=== PATIENT | male | born 1960 | race Caucasian/White ===

== ENCOUNTER 2016-12-19 15:16 | Inpatient (IN) | payer MEDICARE, BC ==
[~2016-12-19] VITALS: Ht 172.7 cm; Wt 92.4 kg
[2016-12-19] MEDS ORDERED: SODIUM CHLOR 0.9% 1000 ML INJ 1,000 ML IV SCH (15:18)
[2016-12-19 15:19] VITALS: BP 131/83; PULSE 110; RESP 20; TEMP 97.2; O2SAT 90
--- NOTE | 2016-12-19 15:26 | PD ---
HPI Chief Complaint: Fall Time Seen by Provider: 15:18 Travel History International Travel<30 days: No Contact w/Intl Traveler<30days: No Traveled to known affect area: No History of Present Illness HPI 56-year-old male with history of psychiatric issues, presents to the ER today brought in by EMS after he fell from a 13 foot ladder, fell onto his left chest wall, he states it hit a stump, and is complaining of left chest wall pain. He denies any other injuries and was actually ambulatory on scene and walked himself to his own car. He denies any loss of consciousness, denies head injury , and denies any other issues. He states that the chest pain is a currently 10 out of 10. He is having back pains as well. Modifying Factors: None Associated Signs & Symptoms: Fall from 13 foot ladder, left chest wall injury Risk Factors: None PFSH Past Medical History Bipolar Disorder: Yes Anxiety: Yes Depression: Yes Social History Alcohol Use: Yes Tobacco Use: No Substance Use: No Allergies-Medications (Allergen,Severity, Reaction): Coded Allergies: CRESTOR (Verified Allergy, Intermediate, 12/19/16) Invega Sustenna (Verified Allergy, Intermediate, 12/19/16) [place] (Verified Allergy, Intermediate, 12/19/16) Omeprazole (Verified Allergy, Intermediate, 12/19/16) Risperdal (Verified Allergy, Intermediate, 12/19/16) Tramadol (Verified Allergy, Mild, 12/19/16) Reported Meds & Prescriptions Reported Meds & Active Scripts Active Reported Flonase Nasal [place] (Fluticasone Nasal [place]) 50 Mcg/Act [place] 50 Mcg EACH NARE BID Fenofibrate 40 Mg Tab 40 Mg PO DAILY Hydroxyzine Pamoate 100 Mg Cap 100 Mg PO QID PRN Metformin (Metformin HCl) 500 Mg Tab 500 Mg PO BIDPC With meals Tylenol-Codeine #3 (Acetaminophen-Codeine) 300-30 mg Tab 1 Tab PO Q4H PRN Flexeril (Cyclobenzaprine HCl) 10 Mg Tab 10 Mg PO TID Lorazepam 1 Mg Tab 1 Mg PO Q6H PRN Nexium (Esomeprazole DR) 40 Mg Capdr 40 Mg PO DAILY Lamictal (Lamotrigine) 150 Mg Tab 150 Mg PO BID Fluoxetine (Fluoxetine HCl) 60 Mg Tab 60 Mg PO DAILY Quetiapine (Quetiapine Fumarate) 400 Mg Tab 400 Mg PO BID Gabapentin 300 Mg Cap 300 Mg PO BID Review of Systems Except as stated in HPI: all other systems reviewed are Neg Physical Exam Narrative GENERAL: Well-developed middle age white male patient currently in moderate distress. Awake and oriented 3. In c-collar. SKIN: Focused skin assessment warm/dry. HEAD: Atraumatic. Normocephalic. EYES: Pupils equal and round. No scleral icterus. No injection or drainage. ENT: No nasal bleeding or discharge. Mucous membranes pink and moist. NECK: Trachea midline. No JVD. C-collar in place. CARDIOVASCULAR: Regular rate and rhythm. No murmur appreciated. RESPIRATORY: Mild accessory muscle use. Clear to auscultation. Breath sounds equal bilaterally. Very tender to palpation of the left anterior and lateral chest wall. GASTROINTESTINAL: Abdomen tender to palpation of the left upper quadrant with guarding but no rebound, nondistended. Hepatic and splenic margins not palpable. MUSCULOSKELETAL: No obvious deformities. No clubbing. No cyanosis. No edema. NEUROLOGICAL: Awake and alert. No obvious cranial nerve deficits. Motor grossly within normal limits. Normal speech. PSYCHIATRIC: Appropriate mood and affect; insight and judgment normal. Data Data Last Documented VS Vital Signs Date Time Temp Pulse Resp B/P Pulse Ox O2 Delivery O2 Flow Rate FiO2 12/19/16 15:23 110 22 93 Nasal Cannula 2 12/19/16 15:19 97.2 131/83 Orders Basic Metabolic Panel (Bmp) (12/19/16 15:18) Complete Blood Count With Diff (12/19/16 15:18) Prothrombin Time / Inr (Pt) (12/19/16 15:18) Act Partial Throm Time (Ptt) (12/19/16 15:18) Type And Screen (12/19/16 15:18) Urinalysis - C+S If Indicated (12/19/16 15:18) Chest, Single Ap (12/19/16 15:18) Pelvis, Ap Only (Routine) (12/19/16 15:18) Ct Cerv Spine W/O Contrast (12/19/16 15:18) Ct Abd/Pel W Iv Contrast(Rout) (12/19/16 15:18) Ct Thorax/ Chest W Iv Contrast (12/19/16 15:18) Electrocardiogram (12/19/16 15:18) Iv Access Insert/Monitor (12/19/16 15:18) Ecg Monitoring (12/19/16 15:18) Oximetry (12/19/16 15:18) Oxygen Administration (12/19/16 15:18) Morphine Inj (Morphine Inj) (12/19/16 15:30) Ondansetron Inj (Zofran Inj) (12/19/16 15:30) Sodium Chlor 0.9% 1000 Ml Inj (Ns 1000 M (12/19/16 15:18) Sodium Chloride 0.9% Flush (Ns Flush) (12/19/16 15:30) Ct Brain W/O Iv Contrast(Rout) (12/19/16 15:29) Iohexol 350 Inj (Omnipaque 350 Inj) (12/19/16 16:56) Admit Order (Ed Use Only) (12/19/16 17:32) Labs Laboratory Tests Test 12/19/16 15:45 White Blood Count 9.0 TH/MM3 Red Blood Count 4.48 MIL/MM3 Hemoglobin 11.8 GM/DL Hematocrit 35.1 % Mean Corpuscular Volume 78.2 FL Mean Corpuscular Hemoglobin 26.4 PG Mean Corpuscular Hemoglobin 33.7 % Concent Red Cell Distribution Width 14.1 % Platelet Count 261 TH/MM3 Mean Platelet Volume 6.5 FL Neutrophils (%) (Auto) 71.1 % Lymphocytes (%) (Auto) 19.9 % Monocytes (%) (Auto) 7.0 % Eosinophils (%) (Auto) 1.8 % Basophils (%) (Auto) 0.2 % Neutrophils # (Auto) 6.4 TH/MM3 Lymphocytes # (Auto) 1.8 TH/MM3 Monocytes # (Auto) 0.6 TH/MM3 Eosinophils # (Auto) 0.2 TH/MM3 Basophils # (Auto) 0.0 TH/MM3 CBC Comment DIFF FINAL Differential Comment Prothrombin Time 11.0 SEC Prothromb Time International 1.0 RATIO Ratio Activated Partial 25.1 SEC Thromboplast Time Sodium Level 138 MEQ/L Potassium Level 3.4 MEQ/L Chloride Level 101 MEQ/L Carbon Dioxide Level 22.7 MEQ/L Anion Gap 14 MEQ/L Blood Urea Nitrogen 15 MG/DL Creatinine 1.00 MG/DL Estimat Glomerular Filtration 78 ML/MIN Rate Random Glucose 121 MG/DL Calcium Level 8.9 MG/DL Blood Type O POSITIVE Antibody Screen NEGATIVE Blood Bank Comment MDM Medical Decision Making Medical Screen Exam Complete: Yes Emergency Medical Condition: Yes Medical Record Reviewed: Yes Interpretation(s) Laboratory Tests Test 12/19/16 15:45 Red Blood Count 4.48 MIL/MM3 (4.50-5.90) Hemoglobin 11.8 GM/DL (13.0-17.0) Hematocrit 35.1 % (39.0-51.0) Mean Corpuscular Volume 78.2 FL (80.0-100.0) Mean Corpuscular Hemoglobin 26.4 PG (27.0-34.0) Mean Platelet Volume 6.5 FL (7.0-11.0) Neutrophils (%) (Auto) 71.1 % (16.0-70.0) Potassium Level 3.4 MEQ/L (3.5-5.1) Estimat Glomerular Filtration 78 ML/MIN (>89) Rate Random Glucose 121 MG/DL (74-106) Last [address] 12/19/[id number] Signed Impressions: Service Date/Time: Monday, December 19, 2016 16:42 - CONCLUSION: Negative noncontrast CT brain. Gautam Mary MD Pelvis X-Ray 12/19/161517 Signed Impressions: Service Date/Time: Monday, December 19, 2016 15:21 - CONCLUSION: Intact pelvis. Giovanni Pradhan MD Chest X-Ray 12/19/161517 Signed Impressions: Service Date/Time: Monday, December 19, 2016 15:19 - CONCLUSION: Trace left base atelectasis. Giovanni Pradhan MD Chest CT 12/19/161517 Signed Impressions: Service Date/Time: Monday, December 19, 2016 16:51 - CONCLUSION: 1. Multiple left rib fractures as above. Associated contusion of the left mid to lower lung. No pneumothorax or hemothorax. 2. Mild bilateral dependent atelectasis. Giovanni Pradhan MD Cervical Spine CT 12/19/161517 Signed Impressions: Service Date/Time: Monday, December 19, 2016 16:42 - CONCLUSION: No fracture or subluxation of the cervical spine. Degenerative changes at C5/C6 and C6/C7 as above. Giovanni Pradhan MD Abdomen/Pelvis CT 12/19/161517 Signed Impressions: Service Date/Time: Monday, December 19, 2016 16:51 - CONCLUSION: No evidence of acute trauma of the abdomen or pelvis. Enlarged and mild fatty infiltrated liver. Giovanni Pradhan MD Differential Diagnosis Fall from ladder, left chest wall and abdominal painrib fractures versus rib contusions versus splenic injuries Narrative Course X-rays and CAT scans ordered for the patient. It shows multiple rib fractures in the left chest wall with a pulmonary contusion underlying. Patient is tachypneic and cardiac with low saturations. At this point, he is placed on oxygen and pain medications in the ER. My plan would be to admit him for further evaluation and treatment. Case was discussed with Dr. Jordan who plans to admit him for further treatment. Diagnosis Primary Impression: Fall from ladder Additional Impressions: Multiple rib fractures Pulmonary contusion Admitting Information Admitting Physician Requests: Admit Deedee Rabago MD Dec 19, 2016 15:25
[2016-12-19] MEDS ORDERED: SODIUM CHLORIDE 0.9% FLUSH 10 ML FLUSH IVF PRN (15:30)
[2016-12-19] MEDS ORDERED: MORPHINE SULFATE 4 MG/ML INJ IV ONE (15:30)
[2016-12-19] MEDS ORDERED: ONDANSETRON HCL 4 MG/2 ML VIAL IVP ONE (15:30)
--- NOTE | 2016-12-19 15:55 | RADRPT ---
EXAM DATE/TIME: 12/19/2016 15:19 [facility] COMPARISON: No previous studies available for comparison. INDICATIONS : Fall, Chest pain. MEDICAL HISTORY : None. SURGICAL HISTORY : None. ENCOUNTER: Initial ACUITY: 1 day PAIN SCORE: 10/10 LOCATION: Bilateral chest FINDINGS: Mild atelectasis left lung base. No pleural effusion seen. No pneumothorax. Heart size within normal limits. CONCLUSION: Trace left base atelectasis. Giovanni Pradhan MD on December 19, 2016 at 15:53 Board Certified Radiologist. This report was verified electronically.
--- NOTE | 2016-12-19 15:56 | RADRPT ---
EXAM DATE/TIME: 12/19/2016 15:21 [facility] COMPARISON: No previous studies available for comparison. INDICATIONS : Fall. MEDICAL HISTORY : None. SURGICAL HISTORY : None. ENCOUNTER: Initial ACUITY: 1 day PAIN SCORE: 10/10 LOCATION: Bilateral pelvis FINDINGS: A single frontal view of the pelvis demonstrates no evidence of fracture. The bony pelvic ring is in tact. Bony mineralization is normal. The soft tissues are intact. CONCLUSION: Intact pelvis. Giovanni Pradhan MD on December 19, 2016 at 15:53 Board Certified Radiologist. This report was verified electronically.
[2016-12-19 16:03] LABS: AUTOMATED NEUTROPHIL # 6.4 TH/MM3 (1.8-7.7); BASOPHIL % 0.2 % (0.0-2.0); EOSINOPHIL # 0.2 TH/MM3 (0-0.4); EOSINOPHIL % 1.8 % (0.0-4.0); HEMATOCRIT 35.1 % (39.0-51.0); HEMO FLAGS DIFF FINAL; LYMPH % 19.9 % (9.0-44.0); LYMPHOCYTE # 1.8 TH/MM3 (1.0-4.8); MEAN CELL VOLUME 78.2 FL (80.0-100.0); MEAN CORPUSCULAR HEMOGLOBIN 26.4 PG (27.0-34.0); MEAN CORPUSCULAR HGB CONC 33.7 % (32.0-36.0); NEUT % 71.1 % (16.0-70.0); PLATELET COUNT 261 TH/MM3 (150-450); RED BLOOD COUNT 4.48 MIL/MM3 (4.50-5.90); RED CELL DISTRIBUTION WIDTH 14.1 % (11.6-17.2)
[2016-12-19 16:10] LABS: APTT (PATIENT) 25.1 SEC (24.3-30.1)
[2016-12-19 16:14] LABS: BICARBONATE 22.7 MEQ/L (21.0-32.0); POTASSIUM 3.4 MEQ/L (3.5-5.1)
[2016-12-19] MEDS ORDERED: QUET1TAB11 PO (16:14)
[2016-12-19] MEDS ORDERED: GABA300C5 PO (16:14)
[2016-12-19] MEDS ORDERED: NEXI40CA PO (16:18)
[2016-12-19] MEDS ORDERED: FENO1TAB46 PO (16:18)
[2016-12-19] MEDS ORDERED: FLUT1SPR5 EACH NARE (16:18)
[2016-12-19] MEDS ORDERED: HYDR100C PO (16:18)
[2016-12-19] MEDS ORDERED: FLUO60TA PO (16:18)
[2016-12-19] MEDS ORDERED: METF500T PO (16:18)
[2016-12-19] MEDS ORDERED: LAMO150 PO (16:18)
[2016-12-19] MEDS ORDERED: TYLETAB34 PO (16:18)
[2016-12-19] MEDS ORDERED: CYCL1TAB29 PO (16:18)
[2016-12-19] MEDS ORDERED: LORA1TAB12 PO (16:18)
[2016-12-19] MEDS ORDERED: IOHEXOL 350 MG/ML 10 ML VIAL (for RAD DIAG) IV ONE (16:56)
--- NOTE | 2016-12-19 16:56 | RADRPT ---
EXAM DATE/TIME: 12/19/2016 16:42 [facility] COMPARISON: No previous studies available for comparison. INDICATIONS : Trauma; fall 15 feet off ladder. RADIATION DOSE: 61.14 CTDIvol (mGy) MEDICAL HISTORY : None SURGICAL HISTORY : None. ENCOUNTER: Initial ACUITY: 1 day PAIN SCALE: 8/10 LOCATION: cranial TECHNIQUE: Multiple contiguous axial images were obtained of the head. Using automated exposure control and adj ustment of the mA and/or kV according to patient size, radiation dose was kept as low as reasonably a chievable to obtain optimal diagnostic quality images. FINDINGS: CEREBRUM: The ventricles are normal for age. No evidence of midline shift, mass lesion, hemorrhage or acute in farction. No extra-axial fluid collections are seen. POSTERIOR FOSSA: The cerebellum and brainstem are intact. The 4th ventricle is midline. The cerebellopontine angle i s unremarkable. EXTRACRANIAL: The visualized portion of the orbits is intact. SKULL: The calvaria is intact. No evidence of skull fracture. CONCLUSION: Negative noncontrast CT brain. Gautam Mary MD on December 19, 2016 at 16:52 Board Certified Radiologist. This report was verified electronically.
--- NOTE | 2016-12-19 16:59 | RADRPT ---
EXAM DATE/TIME: 12/19/2016 16:42 [facility] COMPARISON: No previous studies available for comparison. INDICATIONS : Trauma; fall 15 feet off ladder. RADIATION DOSE: 42.53 CTDIvol (mGy) MEDICAL HISTORY : None SURGICAL HISTORY : None. ENCOUNTER: Initial ACUITY: 1 day PAIN SCALE: 7/10 LOCATION: cranial TECHNIQUE: Volumetric scanning of the cervical spine was performed. Multiplanar reconstructions in the sagittal, coronal and oblique axial planes were performed. Using automated exposure control and adjustment o f the mA and/or kV according to patient size, radiation dose was kept as low as reasonably achievable to obtain optimal diagnostic quality images. FINDINGS: VERTEBRAE: Normal vertebral body height. ALIGNMENT: No evidence of subluxation. C2-C3: The bony spinal canal is normal in size. No evidence of disc bulge or herniation. The neural forami na are bilaterally patent. C3-C4: The bony spinal canal is normal in size. No evidence of disc bulge or herniation. The neural forami na are bilaterally patent. C4-C5: The bony spinal canal is normal in size. No evidence of disc bulge or herniation. The neural forami na are bilaterally patent. C5-C6: Mild to moderate disc space narrowing with a small, broad posterior disc osteophyte complex and mild bilateral uncovertebral and facet osteoarthritis. C6-C7: Mild to moderate disc space narrowing with a small, broad posterior disc osteophyte complex and mild/ moderate bilateral uncovertebral and facet osteoarthritis. There is mild bilateral foraminal stenosis . C7-T1: The bony spinal canal is normal in size. No evidence of disc bulge or herniation. The neural forami na are bilaterally patent. CONCLUSION: No fracture or subluxation of the cervical spine. Degenerative changes at C5/C6 and C6/C7 as above. Giovanni Pradhan MD on December 19, 2016 at 16:55 Board Certified Radiologist. This report was verified electronically.
--- NOTE | 2016-12-19 17:10 | RADRPT ---
EXAM DATE/TIME: 12/19/2016 16:51 [facility] COMPARISON: No previous studies available for comparison. INDICATIONS : Trauma; fall 15 feet off ladder. IV CONTRAST: 100 cc Omnipaque 350 (iohexol) IV ; Cumulative dose for multiple exams. RADIATION DOSE: 19.53 CTDIvol (mGy) ; Combined studies - Thorax/Abdomen/Pelvis MEDICAL HISTORY : None SURGICAL HISTORY : None. ENCOUNTER: Initial ACUITY: 1 day PAIN SCALE: 7/10 LOCATION: Bilateral chest TECHNIQUE: Volumetric scanning of the chest was performed. Using automated exposure control and adjustment of t he mA and/or kV according to patient size, radiation dose was kept as low as reasonably achievable to obtain optimal diagnostic quality images. FINDINGS: Mildly displaced fractures are seen laterally and posterolaterally of the left fifth through ninth ri bs. There is associated pulmonary contusion in the left mid to lower lung, primarily lingula. There i s dependent atelectasis in both lungs. No hemothorax demonstrated. There is no pneumothorax. Right ribs are intact. Sternum and thoracic spine intact. Heart and mediastinum within normal li mits. CONCLUSION: 1. Multiple left rib fractures as above. Associated contusion of the left mid to lower lung. No pneum othorax or hemothorax. 2. Mild bilateral dependent atelectasis. Giovanni Pradhan MD on December 19, 2016 at 17:05 Board Certified Radiologist. This report was verified electronically.
--- NOTE | 2016-12-19 17:14 | RADRPT ---
EXAM DATE/TIME: 12/19/2016 16:51 [facility] COMPARISON: CT THORAX W CONTRAST, December 19, 2016, 16:51. INDICATIONS : Trauma; fall 15 feet off ladder. IV CONTRAST: 100 cc Omnipaque 350 (iohexol) IV ; Cumulative dose for multiple exams. ORAL CONTRAST: No oral contrast ingested. RADIATION DOSE: 19.53 CTDIvol (mGy) ; Combined studies - Thorax/Abdomen/Pelvis MEDICAL HISTORY : Non-responsive. SURGICAL HISTORY : Non-responsive. ENCOUNTER: Initial ACUITY: 1 day PAIN SCALE: 8/10 LOCATION: Bilateral abdomen. TECHNIQUE: Volumetric scanning of the abdomen and pelvis was performed. Using automated exposure control and ad justment of the mA and/or kV according to patient size, radiation dose was kept as low as reasonably achievable to obtain optimal diagnostic quality images. FINDINGS: LIVER: 23 cm craniocaudal and mild fatty infiltrated. The liver is intact. Gallbladder previously removed. SPLEEN: Normal size without lesion. PANCREAS: Within normal limits. KIDNEYS: Normal in size and shape. There is no mass, stone or hydronephrosis. ADRENAL GLANDS: Within normal limits. VASCULAR: There is no aortic aneurysm. BOWEL/MESENTERY: The stomach, small bowel, and colon demonstrate no acute abnormality. There is no free intraperitone al air or fluid. Normal appendix. ABDOMINAL WALL: Within normal limits. RETROPERITONEUM: There is no lymphadenopathy. BLADDER: No wall thickening or mass. REPRODUCTIVE: Within normal limits. INGUINAL: There is no lymphadenopathy or hernia. MUSCULOSKELETAL: No fracture of the visualized osseous structures. Sacralized L5 with mild degenerative changes. CONCLUSION: No evidence of acute trauma of the abdomen or pelvis. Enlarged and mild fatty infiltrated liver. Giovanni Pradhan MD on December 19, 2016 at 17:09 Board Certified Radiologist. This report was verified electronically.
[2016-12-19 18:13] VITALS: BP 134/85
[2016-12-19] MEDS ORDERED: MORPHINE SULFATE 4 MG/ML INJ IV PUSH ONE (18:30)
[2016-12-19] MEDS ORDERED: NALOXONE HCL 0.4 MG/ML AMP IV PRN (19:00)
[2016-12-19] MEDS ORDERED: PANTOPRAZOLE SODIUM 40 MG VIAL IVP SCH (19:00)
[2016-12-19] MEDS ORDERED: MISCELLANEOUS NURSING INFORMATION XX SCH (19:00)
[2016-12-19] MEDS ORDERED: ACETAMINOPHEN/HYDROcodone 325 MG/5 MG TAB PO PRN (19:00)
[2016-12-19] MEDS ORDERED: CHLORHEXIDINE GLUCONATE 2 % 1 PACK (2 CLOTHS) TOP PRN (19:00)
[2016-12-19] MEDS ORDERED: KETOROLAC TROMETHAMINE 30 MG/ML (IVP) VIAL IVP PRN (19:00)
[2016-12-19] MEDS ORDERED: ONDANSETRON HCL 4 MG/2 ML VIAL IV PRN (19:00)
[2016-12-19] MEDS ORDERED: ENALAPRILAT 1.25 MG/ML VIAL IV PRN (19:00)
[2016-12-19 19:21] VITALS: O2SAT 95
[2016-12-19 20:15] VITALS: BP 130/83; PULSE 98; RESP 19; TEMP 96.9; O2SAT 97
[2016-12-19] MEDS: SODIUM CHLOR 0.9% 1000 ML INJ 1,000 ML IV SCH ×2 (20:15→20:26)
[2016-12-19] MEDS: DOCUSATE SODIUM 100 MG/10 ML UDC PO SCH (20:15)
[2016-12-19] MEDS: DOCUSATE SODIUM 100 MG CAP PO SCH (20:15)
[2016-12-19] MEDS: BACITRACIN TOP OINT 15 GM TUBE TOP SCH (20:16)
[2016-12-19] MEDS: MORPHINE SULFATE 30 MG/30 ML PCA IV SCH (20:22)
[2016-12-19] MEDS: PCA - TOTAL MG MORPHINE DELIVERED PER SHIFT SCH (22:00)
[2016-12-20] VITALS (8 sets, daily range): BP systolic 111–142; BP diastolic 73–88; PULSE 81–94; RESP 18; TEMP 95.9–97.4; O2SAT 93–97
[2016-12-20] MEDS ORDERED: CHLORHEXIDINE GLUCONATE 2 % 1 PACK (2 CLOTHS) TOP SCH (04:00)
[2016-12-20 04:06] LABS: BLOOD, URINE NEG (NEG); COMMENT (UR) CULT NOT INDICATED; CULTURE IF INDICATED CULT NOT INDICATED; GLUCOSE,URINE NEG (NEG); KETONE, URINE NEG (NEG); NITRITE,URINE NEG (NEG); URINE COLOR YELLOW (YELLW/STRAW)
--- NOTE | 2016-12-20 05:22 | MH ---
cc: RAMOS ROCHE MD DATE OF ADMISSION: 12/19/2016 CHIEF COMPLAINT Trauma Non-Alert, status post fall. Rib fractures. HISTORY OF PRESENT ILLNESS The patient is 56-year-old male who presents to the emergency department after a fall from 13 feet on a ladder. The patient notes he was climbing a ladder, cutting down branches when he had a branch swing, hit the ladder, knock the ladder out from under him and the patient lost his balance and fell. He denies any loss of consciousness. He notes he fell on his left chest and left ribs and back. He came to the emergency department for further evaluation including multiple CT scans and CT chest showing multiple left 5 through 9 ribs with pulmonary contusion. Surgery was called for further evaluation. On my exam the patient is resting comfortably on 2 liters nasal cannula O2. He is saturating 92%, complains of pain with deep respirations. Otherwise GCS of 15. Neurologically he is following commands and moving all extremities. He is complaining of significant left rib pain. PAST MEDICAL HISTORY 1. Bipolar disorder. 2. Anxiety depression. 3. Diabetes. PAST SURGICAL HISTORY 1. Right ankle surgery. 2. Right arm surgery. 3. Gallbladder surgery SOCIAL HISTORY Denies smoking, EtOH or IVDA. MEDICATIONS See EMR. ALLERGIES CRESTOR. LITHIUM. OMEPRAZOLE, RISPERDAL. TRAMADOL. INVEGA. FAMILY HISTORY Denies hypertension or diabetes. SOCIAL HISTORY Occasional ETOH. Denies smoking or IVDA. REVIEW OF SYSTEMS A 10-point review of systems otherwise negative except for as above. GENERAL: The patient denies LOC. HEENT: Denies eye pain, ear pain. NECK: Denies swelling or pain. RESPIRATORY: Denies cough or wheeze. Complained of left chest pain. HEART: Denies palpitations or pain. ABDOMEN: Denies nausea, vomiting, abdominal pain. MUSCULOSKELETAL: Denies arthralgia, myalgia. PSYCH: History of bipolar. Denies change in mood. PHYSICAL EXAMINATION GENERAL: In no acute distress. VITAL SIGNS: Temperature 96.9, pulse 98, respiration 19, blood pressure 130/83, saturation 97%. HEENT: Pupils equal, round, reactive. NECK: Supple. Trachea midline. CLAVICLES: Nontender. HEART: S1-S2, regular rhythm. CHEST: Clear to auscultation bilaterally. Bilateral expansion. Positive tenderness to palpation on the left. ABDOMEN: Soft, nontender, nondistended. EXTREMITIES: Warm, well-perfused, nontender. NEUROLOGIC: GCS of 15, 5/5 motor all extremities. BACK: No step-offs, nontender. : Within normal limits. LABORATORY AND DIAGNOSTIC DATA WBC 9, hemoglobin 11.8, hematocrit 35.1, platelets 261. Sodium 138, potassium 3.4, chloride 101, BUN 15, creatinine 1, glucose 121, calcium 8.9. INR 1. IMAGING STUDIES CTs have been reviewed by myself. PELVIC X-RAY Negative. CHEST X-RAY Negative. CT CHEST Left rib fractures, multiple, 5 through 9. No pneumothorax. Bilateral atelectasis. CT C-SPINE Degenerative joint disease. No evidence of acute fracture. CT ABDOMEN AND PELVIS No evidence of intraperitoneal organ injury or fracture. CT HEAD Negative. ASSESSMENT 1. The patient is a 56-year-old male status post fall 13 feet from a ladder. 2. Left chest pain. 3. Left rib fractures 5 through 9. 4. Pulmonary contusion. PLAN 1. After full clinical, radiologic and laboratory workup, the patient with above-named issue including the left rib fractures. At this point recommend pain control, pulmonary toilet and deep breathing exercises. 2. We will check a chest x-ray in the morning. 3. We will monitor the patient closely with a pulse ox and O2 saturations and consider ABG if change in saturations. 4. At this point I think the patient is stable to go to the surgical floor. If change in status, we will consider upgrading; however, the patient does appear awake, alert and stable and protecting his airway completely. This was discussed completely with the patient and staff who stated understanding and agreed. Will check labs in and a.m. The patient can ambulate and can have a regular diet. 60 minutes spent reviewing labs and discussing with patient and staff. MD RANDY Latham/ALANIS /10:59 PM /5:05 AM [facility]
[2016-12-20] MEDS: PCA - TOTAL MG MORPHINE DELIVERED PER SHIFT SCH ×3 (06:00→21:05)
[2016-12-20] MEDS: METHOCARBAMOL 500 MG TAB PO SCH ×3 (06:45→20:57)
[2016-12-20 06:58] LABS: ALT (GPT) 128 U/L (12-78); ANION GAP 7 MEQ/L (5-15); AST (GOT) 89 U/L (15-37); BICARBONATE 27.5 MEQ/L (21.0-32.0); BLOOD UREA NITROGEN 8 MG/DL (7-18); CHLORIDE 106 MEQ/L (98-107); GLOMERULAR FILTRATION RATE 135 ML/MIN (>89); SODIUM (NA) 140 MEQ/L (136-145)
[2016-12-20 07:00] LABS: ALKALINE PHOSPHATASE 120 U/L (45-117); TOTAL BILIRUBIN ADULT 0.5 MG/DL (0.2-1.0)
[2016-12-20] MEDS ORDERED: DEXTROSE 50% IN WATER 50 ML VIAL(D50) IV PUSH PRN (08:00)
[2016-12-20] MEDS ORDERED: GLUCAGON 1 MG/ML VIAL OTHER PRN (08:00)
--- NOTE | 2016-12-20 08:36 | RADRPT ---
EXAM DATE/TIME: 12/20/2016 05:30 [facility] COMPARISON: CT THORAX W CONTRAST, December 19, 2016, 16:51. CHEST SINGLE AP, December 19, 2016, 15:19. INDICATIONS : Pain left chest, fell off ladder yesterday MEDICAL HISTORY : None. SURGICAL HISTORY : None. ENCOUNTER: Subsequent ACUITY: 2 days PAIN SCORE: 8/10 LOCATION: Left chest FINDINGS: Right midlung opacity is present not present previously may represent contusion and/or atelectasis wi th slight right lung base atelectasis and/or infiltrate. There is minimal atelectasis in left lung ba se. No definite pneumothorax is seen for technique. The rest of the examination has not significantly changed. Multiple rib fractures are seen on the left. CONCLUSION: Interval development of right lung atelectasis and/or infiltrate not present previously and the left lung base atelectasis has not significantly changed. Kurtis Rudd MD on December 20, 2016 at 6:40 Board Certified Radiologist. This report was verified electronically.
[2016-12-20] MEDS: LIDOCAINE HCL 5% PATCH T-DERMAL SCH (08:43)
[2016-12-20] MEDS: QUEtiapine FUMARATE 200 MG TAB PO SCH ×2 (08:43→20:57)
[2016-12-20] MEDS: FENOFIBRATE 48 MG TAB PO SCH (08:43)
[2016-12-20] MEDS: DOCUSATE SODIUM 100 MG/10 ML UDC PO SCH (08:44)
[2016-12-20] MEDS: DOCUSATE SODIUM 100 MG CAP PO SCH ×2 (08:44→20:56)
[2016-12-20] MEDS: FLUoxetine HCL 20 MG CAP PO SCH (08:44)
[2016-12-20] MEDS: GABAPENTIN 300 MG CAP PO SCH ×2 (08:44→20:56)
[2016-12-20] MEDS: BACITRACIN TOP OINT 15 GM TUBE TOP SCH ×2 (08:50→21:04)
[2016-12-20] MEDS: MORPHINE SULFATE 30 MG/30 ML PCA IV SCH ×2 (08:50→21:29)
[2016-12-20] MEDS: INSULIN NovoLIN REGULAR SUPPLEMENTAL SCALE SQ SCH ×3 (11:00→20:56)
[2016-12-20] MEDS ORDERED: DOCU1CAP39 PO (11:28)
[2016-12-20] MEDS ORDERED: MILKSUS PO (11:31)
--- NOTE | 2016-12-20 11:33 | HHI.PR ---
Subjective Subjective Notes PTD: 1 Patient sitting up in bed. Complains of pain to left chest/ribs area. Discussed home medication regime. Clarified his Seroquel dose. Patient states , "I'm kind of embarrassed to tell you, but I really take 1600 mg of Seroquel a day." Objective Vitals/I&O Vital Signs Date Time Temp Pulse Resp B/P Pulse Ox O2 Delivery O2 Flow Rate FiO2 12/20/16 08:50 15 12/20/16 07:38 97.4 83 121/84 95 12/19/16 20:01 Nasal Cannula 4.00 Labs Laboratory Tests Test 12/19/16 12/20/16 12/20/16 15:45 03:15 05:47 White Blood Count 9.0 Red Blood Count 4.48 Hemoglobin 11.8 Hematocrit 35.1 Mean Corpuscular Volume 78.2 Mean Corpuscular Hemoglobin 26.4 Mean Corpuscular Hemoglobin 33.7 Concent Red Cell Distribution Width 14.1 Platelet Count 261 Mean Platelet Volume 6.5 Neutrophils (%) (Auto) 71.1 Lymphocytes (%) (Auto) 19.9 Monocytes (%) (Auto) 7.0 Eosinophils (%) (Auto) 1.8 Basophils (%) (Auto) 0.2 Neutrophils # (Auto) 6.4 Lymphocytes # (Auto) 1.8 Monocytes # (Auto) 0.6 Eosinophils # (Auto) 0.2 Basophils # (Auto) 0.0 CBC Comment DIFF FINAL Differential Comment Prothrombin Time 11.0 Prothromb Time International 1.0 Ratio Activated Partial 25.1 Thromboplast Time Sodium Level 138 140 Potassium Level 3.4 4.0 Chloride Level 101 106 Carbon Dioxide Level 22.7 27.5 Anion Gap 14 7 Blood Urea Nitrogen 15 8 Creatinine 1.00 0.62 Estimat Glomerular Filtration 78 135 Rate Random Glucose 121 95 Calcium Level 8.9 8.3 Blood Type O POSITIVE Antibody Screen NEGATIVE Blood Bank Comment Urine Color YELLOW Urine Turbidity CLEAR Urine pH 6.0 Urine Specific [place] 1.041 Urine Protein TRACE Urine Glucose (UA) NEG Urine Ketones NEG Urine Occult Blood NEG Urine Nitrite NEG Urine Bilirubin NEG Urine Urobilinogen LESS THAN 2.0 Urine Leukocyte Esterase NEG Urine RBC LESS THAN 1 Urine WBC 1 Microscopic Urinalysis Comment CULT NOT INDICATED Total Bilirubin 0.5 Aspartate Amino Transf 89 (AST/SGOT) Alanine Aminotransferase 128 (ALT/SGPT) Alkaline Phosphatase 120 Total Protein 6.5 Albumin 3.3 Radiology Last Impressions Chest X-Ray 12/20/16 0700 Signed Impressions: Service Date/Time: Tuesday, December 20, 2016 05:30 - CONCLUSION: Interval development of right lung atelectasis and/or infiltrate not present previously and the left lung base atelectasis has not significantly changed. Kurtis Rudd MD Head CT 12/19/16 1529 Signed Impressions: Service Date/Time: Monday, December 19, 2016 16:42 - CONCLUSION: Negative noncontrast CT brain. Gautam Mary MD Pelvis X-Ray 12/19/16 1518 Signed Impressions: Service Date/Time: Monday, December 19, 2016 15:21 - CONCLUSION: Intact pelvis. Giovanni Pradhan MD Chest CT 12/19/16 151 Signed Impressions: Service Date/Time: Monday, December 19, 2016 16:51 - CONCLUSION: 1. Multiple left rib fractures as above. Associated contusion of the left mid to lower lung. No pneumothorax or hemothorax. 2. Mild bilateral dependent atelectasis. Giovanni Pradhan MD Cervical Spine CT 12/19/168 Signed Impressions: Service Date/Time: Monday, December 19, 2016 16:42 - CONCLUSION: No fracture or subluxation of the cervical spine. Degenerative changes at C5/C6 and C6/C7 as above. Giovanni Pradhan MD Abdomen/Pelvis CT 12/19/16 1518 Signed Impressions: Service Date/Time: Monday, December 19, 2016 16:51 - CONCLUSION: No evidence of acute trauma of the abdomen or pelvis. Enlarged and mild fatty infiltrated liver. Giovanni Pradhan MD Narrative Exam GENERAL: This is a 56-year-old male sitting up in bed. No distress noted. Pleasant and cooperative. SKIN: Warm and dry. HEAD: Atraumatic. Normocephalic. EYES: PERRLA ENT: No nasal bleeding or discharge. Mucous membranes pink and moist. NECK: Trachea midline. No JVD. CARDIOVASCULAR: Regular rate and rhythm. RESPIRATORY: No accessory muscle use. Lungs are clear to auscultation. Breath sounds equal bilaterally. No distress or dyspnea. GASTROINTESTINAL: BS + x 4 quads. Abdomen soft, non-tender, nondistended. MUSCULOSKELETAL: Extremities without cyanosis, or edema. + peripheral pulses x 4 extremities. Warm with good capillary refill and sensation. MAEW. NEUROLOGICAL: Awake and alert. Normal speech and pattern. A/P Problem List: (1) Fall from ladder (2) Pulmonary contusion (3) Multiple rib fractures Assessment and Plan [place]: This is a 56-year-old male who fell approximately 13 feet from a ladder. He was cutting branches and the branch fell and knocked the ladder out from underneath him. He landed on his chest, on a tree stump. He was ambulatory at the scene. He walked himself to his car. No LOC. PMHx: Psych. - Bipolar. anxiety. DM. INJURIES: LEFT rib fx (5-9) LEFT lung contusion * Mild fatty liver Consults: Psychiatry. Diet: 2000 gretchen ADA diet. Tolerating po diet. Encourage good po intake with each meal. Pulmonary: Encourage good pulmonary toileting. IS at bedside and pt encouraged to use. Rationale for use explained to patient, and verbalized understanding. EZpap. and nebs. Follow-up chest x-ray in the morning Home medications resumed. Consult placed to psychiatry - patient with a history of bipolar disorder and anxiety. He is on a large a amount of antipsychotic's, including very high doses. Would like psychiatrist evaluation and opinion on medication regimen. 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 [place] 5-10 mg. Toradol q 6. Robaxin 500 q8. Lidoderm patch. Activity: OOB. PT ordered. GI prophylaxis: Protonix IV. Bowel regimen: Colace and MOM. LBM: 0 DVT prophylaxis: Mechanical VTE with SCDs. Chemical management TBD. DC Planning: Case management consulted for assistance with final discharge disposition. Emotional support provided to patient and family at bedside and plan of care discussed. Discussed with RN at bedside. Patient is hemodynamically stable and being managed on the med/surg floor. Left rib fractures Left lung contusion Aggressive pulmonary toileting IS, a cappella,EZpap. CDB Pain management - morphine MECHANICAL DESIGN ENGINEER FACILITIES PT ordered. Encouraged out of bed Follow-up chest x-ray in the morning. Problem Qualifiers (1) Fall from ladder: Qualified Code: W11.XXXA - Fall from ladder, initial encounter (2) Pulmonary contusion: Qualified Code: S27.321A - Contusion of left lung, initial encounter (3) Multiple rib fractures: Qualified Code: S22.42XA - Closed fracture of multiple ribs of left side, initial encounter Pam Carcamo Dec 20, 2016 11:33
--- NOTE | 2016-12-20 11:37 | EKG ---
Date Performed: 12/19/2016 Time Performed: 16:11:27 PTAGE: 56 years EKG: Diffuse nonspecific ST-T wave changes MODERATE INTRAVENTRICULAR CONDUCTION DELAY NONSPECIFI C ST & T-WAVE ABNORMALITY ABNORMAL RHYTHM ECG NO PREVIOUS TRACING DOCTOR: Tejas Gonzalez Interpretating Date/Time 12/20/2016 11:35:59
[2016-12-20] MEDS: LORazepam 1 MG TAB PO PRN ×2 (13:14→23:14)
[2016-12-20] MEDS: lamoTRIgine 100 MG TAB PO SCH ×2 (13:14→20:57)
[2016-12-20] MEDS: MAGNESIUM HYDROXIDE SUSP 30 ML CUP PO SCH (20:58)
[2016-12-21] VITALS (13 sets, daily range): BP systolic 104–157; BP diastolic 64–95; PULSE 54–102; RESP 15–19; TEMP 95.8–97.7; O2SAT 91–100
[2016-12-21] MEDS: METHOCARBAMOL 500 MG TAB PO SCH ×3 (05:37→21:06)
[2016-12-21] MEDS: PCA - TOTAL MG MORPHINE DELIVERED PER SHIFT SCH ×3 (06:03→21:40)
[2016-12-21] MEDS: INSULIN NovoLIN REGULAR SUPPLEMENTAL SCALE SQ SCH ×4 (06:04→20:28)
--- NOTE | 2016-12-21 07:13 | RADRPT ---
EXAM DATE/TIME: 12/21/2016 06:08 [facility] COMPARISON: CT THORAX W CONTRAST, December 19, 2016, 16:51. CHEST SINGLE AP, December 20, 2016, 5:30. INDICATIONS : Pain left chest, back pain , fell off ladder 3 days ago MEDICAL HISTORY : None. SURGICAL HISTORY : None. ENCOUNTER: Subsequent ACUITY: 3 days PAIN SCORE: 10/10 LOCATION: Bilateral chest FINDINGS: Portable AP view of the chest demonstrates a normal-sized cardiac silhouette. Lungs are underinflated with persistent bibasilar opacity. No definite effusion or pneumothorax is visualized. Bones demonst rate no acute finding. Left rib fractures remain visualized. CONCLUSION: Stable chest x-ray with underinflation and bibasilar airspace opacity likely representing atelectasis . Giovanni Mcfadden MD on December 21, 2016 at 7:08 Board Certified Radiologist. This report was verified electronically.
[2016-12-21] MEDS: LIDOCAINE HCL 5% PATCH T-DERMAL SCH (08:38)
[2016-12-21] MEDS: BACITRACIN TOP OINT 15 GM TUBE TOP SCH ×2 (08:38→20:28)
[2016-12-21] MEDS: QUEtiapine FUMARATE 200 MG TAB PO SCH ×2 (08:38→20:17)
[2016-12-21] MEDS: lamoTRIgine 100 MG TAB PO SCH ×2 (08:39→20:18)
[2016-12-21] MEDS: FENOFIBRATE 48 MG TAB PO SCH (08:39)
[2016-12-21] MEDS: GABAPENTIN 300 MG CAP PO SCH ×2 (08:39→20:18)
[2016-12-21] MEDS: DOCUSATE SODIUM 100 MG CAP PO SCH ×2 (08:39→20:18)
[2016-12-21] MEDS: PANTOPRAZOLE SOD 40 MG DELAYED RELEASE TAB PO SCH (08:40)
[2016-12-21] MEDS: metFORMIN HCL 500 MG TAB PO SCH ×2 (08:40→18:03)
[2016-12-21] MEDS: FLUoxetine HCL 20 MG CAP PO SCH (08:40)
[2016-12-21] MEDS: MORPHINE SULFATE 30 MG/30 ML PCA IV SCH ×2 (09:58→21:08)
[2016-12-21] MEDS: RESP: ALBUTEROL 2.5 MG/IPRATROPIUM 0.5 MG NEB (PRN) NEB (10:16)
--- NOTE | 2016-12-21 12:07 | HHI.PR ---
Subjective Subjective Notes PTD: 2 Patient sitting out of bed in a recliner chair. Patient complains of pain and points to left side of chest. Patient states he has been out of bed to chair. Additionally he states he has been in the hallway walking this morning. Objective Vitals/I&O Vital Signs Date Time Temp Pulse Resp B/P Pulse Ox O2 Delivery O2 Flow Rate FiO2 12/21/16 10:12 92 Nasal Cannula 3.00 12/21/16 09:58 15 12/21/16 07:42 97.4 102 131/83 Labs Laboratory Tests Test 12/19/16 12/20/16 12/20/16 15:45 03:15 05:47 White Blood Count 9.0 TH/MM3 Red Blood Count 4.48 MIL/MM3 Hemoglobin 11.8 GM/DL Hematocrit 35.1 % Mean Corpuscular Volume 78.2 FL Mean Corpuscular Hemoglobin 26.4 PG Mean Corpuscular Hemoglobin 33.7 % Concent Red Cell Distribution Width 14.1 % Platelet Count 261 TH/MM3 Mean Platelet Volume 6.5 FL Neutrophils (%) (Auto) 71.1 % Lymphocytes (%) (Auto) 19.9 % Monocytes (%) (Auto) 7.0 % Eosinophils (%) (Auto) 1.8 % Basophils (%) (Auto) 0.2 % Neutrophils # (Auto) 6.4 TH/MM3 Lymphocytes # (Auto) 1.8 TH/MM3 Monocytes # (Auto) 0.6 TH/MM3 Eosinophils # (Auto) 0.2 TH/MM3 Basophils # (Auto) 0.0 TH/MM3 CBC Comment DIFF FINAL Differential Comment Prothrombin Time 11.0 SEC Prothromb Time International 1.0 RATIO Ratio Activated Partial 25.1 SEC Thromboplast Time Blood Type O POSITIVE Antibody Screen NEGATIVE Blood Bank Comment Urine Color YELLOW Urine Turbidity CLEAR Urine pH 6.0 Urine Specific [place] 1.041 Urine Protein TRACE mg/dL Urine Glucose (UA) NEG mg/dL Urine Ketones NEG mg/dL Urine Occult Blood NEG Urine Nitrite NEG Urine Bilirubin NEG Urine Urobilinogen LESS THAN 2.0 MG/DL Urine Leukocyte Esterase NEG Urine RBC LESS THAN 1 /hpf Urine WBC 1 /hpf Microscopic Urinalysis Comment CULT NOT INDICATED Sodium Level 140 MEQ/L Potassium Level 4.0 MEQ/L Chloride Level 106 MEQ/L Carbon Dioxide Level 27.5 MEQ/L Anion Gap 7 MEQ/L Blood Urea Nitrogen 8 MG/DL Creatinine 0.62 MG/DL Estimat Glomerular Filtration 135 ML/MIN Rate Random Glucose 95 MG/DL Calcium Level 8.3 MG/DL Total Bilirubin 0.5 MG/DL Aspartate Amino Transf 89 U/L (AST/SGOT) Alanine Aminotransferase 128 U/L (ALT/SGPT) Alkaline Phosphatase 120 U/L Total Protein 6.5 GM/DL Albumin 3.3 GM/DL Radiology Last Impressions Chest X-Ray 12/20/16 0700 Signed Impressions: Service Date/Time: Tuesday, December 20, 2016 05:30 - CONCLUSION: Interval development of right lung atelectasis and/or infiltrate not present previously and the left lung base atelectasis has not significantly changed. Kurtis Rudd MD Head CT 12/19/16 1529 Signed Impressions: Service Date/Time: Monday, December 19, 2016 16:42 - CONCLUSION: Negative noncontrast CT brain. Gautam Mary MD Pelvis X-Ray 12/19/16 1518 Signed Impressions: Service Date/Time: Monday, December 19, 2016 15:21 - CONCLUSION: Intact pelvis. Giovanni Pradhan MD Chest CT 12/19/16 1518 Signed Impressions: Service Date/Time: Monday, December 19, 2016 16:51 - CONCLUSION: 1. Multiple left rib fractures as above. Associated contusion of the left mid to lower lung. No pneumothorax or hemothorax. 2. Mild bilateral dependent atelectasis. Giovanni Pradhan MD Cervical Spine CT 12/19/16 1518 Signed Impressions: Service Date/Time: Monday, December 19, 2016 16:42 - CONCLUSION: No fracture or subluxation of the cervical spine. Degenerative changes at C5/C6 and C6/C7 as above. Giovanni Pradhan MD Abdomen/Pelvis CT 12/19/16 1518 Signed Impressions: Service Date/Time: Monday, December 19, 2016 16:51 - CONCLUSION: No evidence of acute trauma of the abdomen or pelvis. Enlarged and mild fatty infiltrated liver. Giovanni Pradhan MD Narrative Exam GENERAL: This is a 56-year-old male out of bed and recliner chair No distress noted. Pleasant and cooperative. SKIN: Warm and dry. HEAD: Atraumatic. Normocephalic. EYES: PERRLA ENT: No nasal bleeding or discharge. Mucous membranes pink and moist. NECK: Trachea midline. No JVD. CARDIOVASCULAR: Regular rate and rhythm. RESPIRATORY: No accessory muscle use. Lungs are clear , but decreased to left lower lobe. Breath sounds equal bilaterally. No distress or dyspnea. GASTROINTESTINAL: BS + x 4 quads. Abdomen soft, non-tender, nondistended. MUSCULOSKELETAL: Extremities without cyanosis, or edema. + peripheral pulses x 4 extremities. Warm with good capillary refill and sensation. MAEW. NEUROLOGICAL: Awake and alert. Normal speech and pattern. A/P Problem List: (1) Fall from ladder (2) Pulmonary contusion (3) Multiple rib fractures Assessment and Plan [place]: This is a 56-year-old male who fell approximately 13 feet from a ladder. He was cutting branches and the branch fell and knocked the ladder out from underneath him. He landed on his chest, on a tree stump. He was ambulatory at the scene. He walked himself to his car. No LOC. PMHx: Psych. - Bipolar. anxiety. DM. INJURIES: LEFT rib fx (5-9) LEFT lung contusion * Mild fatty liver Consults: Psychiatry. Diet: 2000 gretchen ADA diet. Tolerating po diet. Encourage good po intake with each meal. Pulmonary: Encourage good pulmonary toileting. IS at bedside and pt encouraged to use. Rationale for use explained to patient, and verbalized understanding. EZpap. and nebs. Had a long conversation with the patient on the importance of IS, acapella and EZ pap exercises and the rationale. Patient agrees to participate in exercises q 1 hr to be proactive in preventing pneumonia. Follow-up chest x-ray in the morning Home medications have been resumed. Consult placed to psychiatry - Dr. Teran has seen the patient today. Evaluated his medication regime, and return to patient to his stated home dose of Seroquel for a total of 1600 mg q day. 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 [place] 5-10 mg. Robaxin 500 q8. Lidoderm patch. Activity: OOB. PT ordered. Encourage out of bed 3-4 times a day. Encourage ambulation in the hallway. GI prophylaxis: Protonix po. Bowel regimen: Colace and MOM. LBM: 0 DVT prophylaxis: Mechanical VTE with SCDs. Chemical management Lovenox 30 mg BID. DC Planning: Case management consulted for assistance with final discharge disposition. Emotional support provided to patient and family at bedside and plan of care discussed. Discussed with RN at bedside. Patient is hemodynamically stable and being managed on the med/surg floor. Left rib fractures Left lung contusion Aggressive pulmonary toileting IS, a cappella, EZpap. Patient again instructed in the importance of these exercises to prevent pneumonia. CDB Pain management - morphine RAIL DETECTOR CAR OPERATOR Patient still remains very painful. We will continue morphine RAIL DETECTOR CAR OPERATOR overnight, and attempt the addition of narcotics po in an attempt to transition. PT ordered. Encouraged out of bed 3-4 times a day. Encourage ambulation in the hallway. Follow-up chest x-ray in the morning. Bipolar/anxiety disorder Home medications resumed Consult placed to psychiatry to assist in management and care - especially medication management Dr. Teran - ordered home dose of Seroquel 800 mg BID. Trazodone 100 mg hs Ativan 1 mg q6. Prozac 60 daily Neurontin 300 BID. Lamictal 150 mg BID Vistaril 100 QID PRN agitation Problem Qualifiers (1) Fall from ladder: Qualified Code: W11.XXXA - Fall from ladder, initial encounter (2) Pulmonary contusion: Qualified Code: S27.321A - Contusion of left lung, initial encounter (3) Multiple rib fractures: Qualified Code: S22.42XA - Closed fracture of multiple ribs of left side, initial encounter Pam Carcamo Dec 21, 2016 12:07
--- NOTE | 2016-12-21 12:50 | PD.CONS ---
Provisional Diagnosis Admission Date Dec 19, 2016 at 18:50 [place]. Bipolar disorder by history History of Present Illness Service Psychiatry Consult Requested By Clifford Mora Primary Care Physician Non-Staff HPI Patient with history of bipolar disorder, taking Seroquel 800 mg by mouth twice a day. Patient wants to be back on that dose of medication and states he has been taking it for "a long time". He acknowledges it is a large dose of Seroquel that he states he has no side effects to it. Even though he has a history of bipolar disorder, patient does not appear to be experiencing significant symptoms of that illness at this time. No suicidal or homicidal ideation, plan or intent. No psychotic symptoms. Review of Systems Except as stated in HPI: all other systems reviewed are Neg Past Family Social History Coded Allergies: CRESTOR (Verified Allergy, Intermediate, 12/19/16) Invega Sustenna (Verified Allergy, Intermediate, 12/19/16) [place] (Verified Allergy, Intermediate, 12/19/16) Omeprazole (Verified Allergy, Intermediate, 12/19/16) Risperdal (Verified Allergy, Intermediate, 12/19/16) Tramadol (Verified Allergy, Mild, 12/19/16) Reported Medications Fluticasone Nasal Ono (Flonase Nasal Ono)50 Mcg/Act Spray50 Mcg EACH NARE BID #1 BOTTLE Ref 0 12/19/16 Fenofibrate 40 Mg Tab40 Mg PO DAILY #30 TAB Ref 0 12/19/16 Hydroxyzine Pamoate 100 Mg Iuc830 Mg PO QID PRN (AGITATION) Ref 0 12/19/16 Metformin 500 Mg Msc126 Mg PO BIDPC #60 TAB Ref 0 With meals 12/19/16 Acetaminophen-Codeine (Tylenol-Codeine #3)300-30 mg Tab1 Tab PO Q4H PRN (PAIN) Ref 0 12/19/16 Cyclobenzaprine (Flexeril)10 Mg Tab10 Mg PO TID #90 TAB Ref 0 12/19/16 Lorazepam 1 Mg Tab1 Mg PO Q6H PRN (ANXIETY) Ref 0 12/19/[address] (Nexium)40 Mg Capdr40 Mg PO DAILY Ref 0 12/19/16 Lamotrigine (Lamictal)150 Mg [id number] Mg PO BID #60 TAB Ref 0 12/19/16 Fluoxetine 60 Mg Tab60 Mg PO DAILY #30 TAB Ref 0 12/19/16 Quetiapine 400 Mg Ubr190 Mg PO QID #60 TAB Ref 0 12/19/16 Gabapentin 300 Mg Ksk232 Mg PO BID #60 CAP Ref 0 12/19/16 Current Medications Medications (Trade) Dose Ordered Sig/Marvin Route Start Time Stop Time Status Last Admin (NS Flush) 2 ml UNSCH PRN IVF 12/19/16 15:30 (NS Flush) 2 ml UNSCH PRN IV FLUSH 12/19/16 19:00 (Dilaudid Pf Inj) 1 mg Q1H PRN IVP 12/19/16 19:00 ([place] 5-325 Mg) 1 tab Q4H PRN PO 12/19/16 19:00 ([place] 5-325 Mg) 2 tab Q4H PRN PO 12/19/16 19:00 (Vasotec Inj) 1.25 mg Q8H PRN IV 12/19/16 19:00 (Zofran Inj) 4 mg Q6H PRN IV 12/19/16 19:00 (Baciguent Oint) 1 applic BID TOP 12/19/16 21:00 12/21/16 08:38 (Colace) 100 mg BID PO 12/19/16 21:00 12/21/16 08:39 (Narcan Inj) 0.4 mg UNSCH PRN IV 12/19/16 19:00 (Morphine 1 Mg/ ml TEXTILE MACHINERY INSTRUCTOR) 30 mg UNSCH IV 12/19/16 19:00 12/21/16 09:58 TEXTILE MACHINERY INSTRUCTOR Dosage Infused (Pha) 1 Q8HR .XX 12/19/16 22:00 12/21/16 06:03 (Lidoderm 5% Patch.12 Hr) 1 patch DAILY T-DERMAL 12/20/16 09:00 12/21/16 08:38 (Robaxin) 500 mg Q8HR PO 12/20/16 06:45 12/21/16 05:37 (PROzac) 60 mg DAILY PO 12/20/16 09:00 12/21/16 08:40 (Neurontin) 300 mg BID PO 12/20/16 09:00 12/21/16 08:39 (LaMICtal) 150 mg BID PO 12/20/16 09:00 12/21/16 08:39 (Tricor) 48 mg DAILY PO 12/20/16 09:00 12/21/16 08:39 (Vistaril) 100 mg QID PRN PO 12/20/16 08:30 12/20/16 23:14 (SEROquel) 400 mg BID PO 12/20/16 09:00 12/21/16 08:38 (D50w (Vial) Inj) 25 ml UNSCH PRN IV PUSH 12/20/16 08:00 (Glucagon Inj) 1 mg UNSCH PRN OTHER 12/20/16 08:00 (Milk Of Magnesia Liq) 30 ml HS PO 12/20/16 21:00 12/20/16 20:58 (Ativan) 1 mg Q6H PRN PO 12/20/16 12:30 12/20/16 23:14 (Glucophage) 1,000 mg BIDPC PO 12/21/16 09:00 12/21/16 08:40 (Desyrel) 100 mg HS PRN PO 12/20/16 16:30 (Protonix) 40 mg DAILY PO 12/21/16 09:00 12/21/16 08:40 (Lovenox Inj) 30 mg Q12H SQ 12/21/16 13:00 Family History Positive family history for mood disorders. Social History Denies a history of alcohol or drug abuse. Does not work consistently. Patient's Strengths (min. 2) Verbal and resilient. Physical Exam Vital Signs Vital Signs Date Time Temp Pulse Resp B/P Pulse Ox O2 Delivery O2 Flow Rate FiO2 12/21/16 10:12 92 Nasal Cannula 3.00 12/21/16 09:58 15 12/21/16 07:42 97.4 102 131/83 I/O 12/20/16 12/20/16 12/21/16 08:00 16:00 00:00 Intake Total 952 ml 1311 ml 563 ml Output Total 500 ml 200 ml Balance 452 ml 1311 ml 363 ml Mental Status Examination Speech: Unremarkable Orientation: x3 Memory: Unremarkable Thought Process: Organized, Goal Directed Thought Content: Unremarkable Hallucination Type: None Attention and Concentration: Good Suicidal Ideation: No Previous Suicide Attempts: No Homicidal Ideation: No Previous Homicide Attempts: No Insight: Fair Judgment: WNL Affect: Good Mood: Appropriate Motor Activity: Normal gait Assessment & Plan Problem List: (1) History of depressed bipolar disorder ICD Code: F31.70 Assessment & Plan Estimated LOS: days will place patient back on current doses of Seroquel 800 mg twice a day. Does not require psychiatric hospitalization at this time. Can follow up on outpatient basis. Jack Teran MD Dec 21, 2016 12:50
[2016-12-21] MEDS: ENOXAPARIN SODIUM 30 MG/0.3 ML SYRINGE SQ SCH (12:53)
[2016-12-21] MEDS: ACETAMINOPHEN/HYDROcodone 325 MG/5 MG TAB PO PRN ×2 (12:53→20:22)
[2016-12-21] MEDS: LORazepam 1 MG TAB PO PRN (15:02)
[2016-12-21] MEDS: MAGNESIUM HYDROXIDE SUSP 30 ML CUP PO SCH (20:18)
[2016-12-22] VITALS (9 sets, daily range): BP systolic 117–141; BP diastolic 61–85; PULSE 94–109; RESP 16–28; TEMP 96.3–98.4; O2SAT 90–100
[2016-12-22] MEDS: ENOXAPARIN SODIUM 30 MG/0.3 ML SYRINGE SQ SCH ×2 (00:28→17:57)
[2016-12-22] MEDS: ACETAMINOPHEN/HYDROcodone 325 MG/5 MG TAB PO PRN ×3 (03:08→17:58)
[2016-12-22] MEDS: LORazepam 1 MG TAB PO PRN ×2 (04:31→22:12)
[2016-12-22] MEDS: PCA - TOTAL MG MORPHINE DELIVERED PER SHIFT SCH ×3 (05:59→22:00)
[2016-12-22] MEDS: METHOCARBAMOL 500 MG TAB PO SCH ×3 (05:59→22:13)
[2016-12-22] MEDS: INSULIN NovoLIN REGULAR SUPPLEMENTAL SCALE SQ SCH ×4 (06:52→21:00)
--- NOTE | 2016-12-22 07:25 | RADRPT ---
EXAM DATE/TIME: 12/22/2016 06:39 [facility] COMPARISON: CT THORAX W CONTRAST, December 19, 2016, 16:51. CHEST SINGLE AP, December 21, 2016, 6:08. INDICATIONS : Follow-up trauma. MEDICAL HISTORY : None. SURGICAL HISTORY : None. ENCOUNTER: Subsequent ACUITY: 3 days PAIN SCORE: 6/10 LOCATION: Bilateral chest FINDINGS: Underinflated AP view of the chest demonstrates a normal-sized cardiac silhouette. There are bibasila r opacities similar to the prior study. No pneumothorax is visualized. Bones demonstrate no acute fin ding. The left rib fractures are not appreciated. CONCLUSION: Stable exam with underinflation and bibasilar opacities most likely representing atelectasis. Giovanni Mcfadden MD on December 22, 2016 at 7:22 Board Certified Radiologist. This report was verified electronically.
[2016-12-22] MEDS: QUEtiapine FUMARATE 200 MG TAB PO SCH ×2 (08:33→21:00)
[2016-12-22] MEDS: lamoTRIgine 100 MG TAB PO SCH ×2 (08:33→20:59)
[2016-12-22] MEDS: FENOFIBRATE 48 MG TAB PO SCH (08:33)
[2016-12-22] MEDS: PANTOPRAZOLE SOD 40 MG DELAYED RELEASE TAB PO SCH (08:38)
[2016-12-22] MEDS: GABAPENTIN 300 MG CAP PO SCH ×2 (08:38→21:00)
[2016-12-22] MEDS: FLUoxetine HCL 20 MG CAP PO SCH (08:39)
[2016-12-22] MEDS: LIDOCAINE HCL 5% PATCH T-DERMAL SCH (08:42)
[2016-12-22] MEDS: BACITRACIN TOP OINT 15 GM TUBE TOP SCH ×2 (09:00→21:00)
[2016-12-22] MEDS: DOCUSATE SODIUM 100 MG CAP PO SCH ×2 (09:37→21:00)
[2016-12-22] MEDS: metFORMIN HCL 500 MG TAB PO SCH ×2 (09:37→17:58)
--- NOTE | 2016-12-22 11:16 | HHI.PR ---
Subjective Subjective Notes PTD 3 1130: On rounds. Pt found OOB, and confused. Many items are on the floor scattered around him including pitcher, empty cup, IS, acapella, box of tissues. He is trying to pick them up. He is tachycardic and tachypneic and hypoxic. HR = 120-125. RR = 28 -32. Sats = 75% on room air. (O2 is on the floor.) O@ NC replaced at 6L and sats improve to 88-90% . Remarks seen and examined with TELEPHONE APPOINTMENT CLERK-agree with assessment and plan multiple rib fx hypoxic in am transfer for improved pulmonary toilett CT chest to r/o retained ELAINA Objective Vitals/I&O Vital Signs Date Time Temp Pulse Resp B/P Pulse Ox O2 Delivery O2 Flow Rate FiO2 12/22/16 08:20 93 Nasal Cannula 3.00 12/22/16 08:00 96.3 97 18 121/85 Labs Laboratory Tests Test 12/19/16 12/20/16 12/20/16 15:45 03:15 05:47 White Blood Count 9.0 TH/MM3 Red Blood Count 4.48 MIL/MM3 Hemoglobin 11.8 GM/DL Hematocrit 35.1 % Mean Corpuscular Volume 78.2 FL Mean Corpuscular Hemoglobin 26.4 PG Mean Corpuscular Hemoglobin 33.7 % Concent Red Cell Distribution Width 14.1 % Platelet Count 261 TH/MM3 Mean Platelet Volume 6.5 FL Neutrophils (%) (Auto) 71.1 % Lymphocytes (%) (Auto) 19.9 % Monocytes (%) (Auto) 7.0 % Eosinophils (%) (Auto) 1.8 % Basophils (%) (Auto) 0.2 % Neutrophils # (Auto) 6.4 TH/MM3 Lymphocytes # (Auto) 1.8 TH/MM3 Monocytes # (Auto) 0.6 TH/MM3 Eosinophils # (Auto) 0.2 TH/MM3 Basophils # (Auto) 0.0 TH/MM3 CBC Comment DIFF FINAL Differential Comment Prothrombin Time 11.0 SEC Prothromb Time International 1.0 RATIO Ratio Activated Partial 25.1 SEC Thromboplast Time Blood Type O POSITIVE Antibody Screen NEGATIVE Blood Bank Comment Urine Color YELLOW Urine Turbidity CLEAR Urine pH 6.0 Urine Specific Aubrey 1.041 Urine Protein TRACE mg/dL Urine Glucose (UA) NEG mg/dL Urine Ketones NEG mg/dL Urine Occult Blood NEG Urine Nitrite NEG Urine Bilirubin NEG Urine Urobilinogen LESS THAN 2.0 MG/DL Urine Leukocyte Esterase NEG Urine RBC LESS THAN 1 /hpf Urine WBC 1 /hpf Microscopic Urinalysis Comment CULT NOT INDICATED Sodium Level 140 MEQ/L Potassium Level 4.0 MEQ/L Chloride Level 106 MEQ/L Carbon Dioxide Level 27.5 MEQ/L Anion Gap 7 MEQ/L Blood Urea Nitrogen 8 MG/DL Creatinine 0.62 MG/DL Estimat Glomerular Filtration 135 ML/MIN Rate Random Glucose 95 MG/DL Calcium Level 8.3 MG/DL Total Bilirubin 0.5 MG/DL Aspartate Amino Transf 89 U/L (AST/SGOT) Alanine Aminotransferase 128 U/L (ALT/SGPT) Alkaline Phosphatase 120 U/L Total Protein 6.5 GM/DL Albumin 3.3 GM/DL Radiology Last Impressions Chest X-Ray 12/20/16 0700 Signed Impressions: Service Date/Time: Tuesday, December 20, 2016 05:30 - CONCLUSION: Interval development of right lung atelectasis and/or infiltrate not present previously and the left lung base atelectasis has not significantly changed. Kurtis Rudd MD Head CT 12/19/[id number] Signed Impressions: Service Date/Time: Monday, December 19, 2016 16:42 - CONCLUSION: Negative noncontrast CT brain. Gautam Mary MD Pelvis X-Ray 12/19/161517 Signed Impressions: Service Date/Time: Monday, December 19, 2016 15:21 - CONCLUSION: Intact pelvis. Giovanni Pradhan MD Chest CT 12/19/161517 Signed Impressions: Service Date/Time: Monday, December 19, 2016 16:51 - CONCLUSION: 1. Multiple left rib fractures as above. Associated contusion of the left mid to lower lung. No pneumothorax or hemothorax. 2. Mild bilateral dependent atelectasis. Giovanni Pradhan MD Cervical Spine CT 12/19/161517 Signed Impressions: Service Date/Time: Monday, December 19, 2016 16:42 - CONCLUSION: No fracture or subluxation of the cervical spine. Degenerative changes at C5/C6 and C6/C7 as above. Giovanni Pradhan MD Abdomen/Pelvis CT 12/19/161517 Signed Impressions: Service Date/Time: Monday, December 19, 2016 16:51 - CONCLUSION: No evidence of acute trauma of the abdomen or pelvis. Enlarged and mild fatty infiltrated liver. 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 HEAD: Atraumatic. Normocephalic. EYES: PERRLA. 2 mm bilaterally. ENT: No nasal bleeding or discharge. Mucous membranes pink and moist. NECK: Trachea midline. No JVD. CARDIOVASCULAR: Regular rate and rhythm. Tachycardic - HR = 120-125. RESPIRATORY: RA = Sats 75%. Increase to 88-90% on 6L. Tachypneic. RR = 28-32. Slight accessory muscle use. Lungs are clear, but very decreased to bilateral lower lobes. Breath sounds equal bilaterally. Slight distress and dyspnea. GASTROINTESTINAL: BS + x 4 quads. Abdomen soft, non-tender, nondistended. MUSCULOSKELETAL: Extremities without cyanosis, or edema. + peripheral pulses x 4 extremities. Warm with good capillary refill and sensation. MAEW. NEUROLOGICAL: Awake and alert. A&0 x 1. Very confused. A/P Problem List: (1) Fall from ladder (2) Pulmonary contusion (3) Multiple rib fractures Assessment and Plan CHITINA: This is a 56-year-old male who fell approximately 13 feet from a ladder. He was cutting branches and the branch fell and knocked the ladder out from underneath him. He landed on his chest, on a tree stump. He was ambulatory at the scene. He walked himself to his car. No LOC. And hypoxic and confused on Tuesday on the floor, transferred to [facility] for further management and care. PMHx: Psych. - Bipolar. anxiety. DM. INJURIES: LEFT rib fx (5-9) LEFT lung contusion * Mild fatty liver Consults: [facility]. Psychiatry. Patient found on trauma rounds confused, tachycardic, tachypneic, and hypoxic on room air (O2 nasal cannula found on the floor). O2 nasal cannula resumed at 6 L nasal cannula, and sats recover to 88-90%. Lung sounds are decreased bilaterally in the lower lobes to auscultation . Plan for transfer to [facility] for further management and care. Consult to tubing supervisor. Obtain ABG, continue O2. Stat CT head - to rule out delayed TBI, obtained CT thorax - to evaluate for possible retained hemothorax. * Diet: 2000 gretchen ADA diet. Tolerating po diet. Encourage good po intake with each meal. Pulmonary: Encourage good pulmonary toileting. IS at bedside and pt encouraged to use. Rationale for use explained to patient, and verbalized understanding. EZpap. and nebs. AMchest x-ray - shows bibasilar opacity disease and atelectasis. Follow-up labs and chest x-ray in the morning. Psychiatry - assist with psych medication management PAIN Management: Morphine DATA CONVERSION ANALYST . Anderson 5-10 mg. Robaxin 500 q8. Lidoderm patch. Activity: OOB. PT ordered. Encourage out of bed 3-4 times a day. Encourage ambulation in the hallway. GI prophylaxis: Protonix po. Bowel regimen: Colace and MOM. LBM: 0 DVT prophylaxis: Mechanical VTE with SCDs. Chemical management Lovenox 30 mg BID. DC Planning: Case management consulted for assistance with final discharge disposition. Emotional support provided to patient and family at bedside and plan of care discussed. Discussed with RN at bedside. Patient is hemodynamically stable and being managed on the med/surg floor. Left rib fractures Left lung contusion Aggressive pulmonary toileting IS, a cappella, EZpap. Patient again instructed in the importance of these exercises to prevent pneumonia. CDB 12/22: Found out of bed, confused, without O2 (nasal cannula found on floor). Hypoxic - sats equals 75% on room air - recover to 88-90% on 6 L nasal cannula. Obtain ABG Transferred [facility]. Pain management - morphine DATA CONVERSION ANALYST Patient still remains very painful. We will continue morphine DATA CONVERSION ANALYST. PT ordered. Encouraged out of bed 3-4 times a day. Encourage ambulation in the hallway. Follow-up labs and chest x-ray in the morning. Obtain CT chest - ? Retained hemothorax Altered mental status Confusion Hypoxia Just receive hydrocodone [address] incident. Place on O2 nasal cannula at 6 L Obtain ABG Transfer to [facility] for close monitoring Obtain repeat head CT due to confusion Obtain CT chest- ? Retained hemothorax Continue supportive care Bipolar/anxiety disorder Home medications resumed Psychiatry to assist in management and care - especially medication management Dr. Teran - ordered home dose of Seroquel 800 mg BID. Trazodone 100 mg hs Ativan 1 mg q6. Prozac 60 daily Neurontin 300 BID. Lamictal 150 mg BID Vistaril 100 QID PRN agitation Problem Qualifiers (1) Fall from ladder: Qualified Code: W11.XXXA - Fall from ladder, initial encounter (2) Pulmonary contusion: Qualified Code: S27.321A - Contusion of left lung, initial encounter (3) Multiple rib fractures: Qualified Code: S22.42XA - Closed fracture of multiple ribs of left side, initial encounter Pam Carcamo Dec 22, 2016 11:16 Hailey Ulloa MD Dec 22, 2016 16:12
[2016-12-22 12:32] LABS: BLOOD GAS HCO3 27 mmol/L (22-26); BLOOD GAS O2 HGB SATURATION 92 % (90-100); BLOOD GAS OXYGEN CONTENT 13.8 Vol % (12.0-20.0); BLOOD GAS PCO2 52 mmHg (38-42); BLOOD GAS PO2 73 mmHg (61-120); BLOOD GAS TOTAL HGB 10.6 G/DL (12.0-16.0); CRITICAL VALUE YES; DRAW SITE RT RADIAL; LITER FLOW 2 L/M; NUMBER OF ARTERIAL PUNCTURES 1; OXYGEN DEVICE NASAL CANNULA; STAT NO; TEMP CORR TO 98.6; ULNAR PULSE PRESENT
[2016-12-22] MEDS ORDERED: IOHEXOL 350 MG/ML 10 ML VIAL (for RAD DIAG) IV ONE (13:15)
--- NOTE | 2016-12-22 13:22 | RADRPT ---
EXAM DATE/TIME: 12/22/2016 12:51 [facility] COMPARISON: CT BRAIN W/O CONTRAST, December 19, 2016, 16:42. CT THORAX W CONTRAST, December 19, 2016, 16:51. INDICATIONS : Altered mental status RADIATION DOSE: 59.40 CTDIvol (mGy) MEDICAL HISTORY : Cardiovascular disease. SURGICAL HISTORY : Cholecystectomy. ENCOUNTER: Initial ACUITY: 1 day PAIN SCALE: 0/10 LOCATION: cranial TECHNIQUE: Multiple contiguous axial images were obtained of the head. Using automated exposure control and adj ustment of the mA and/or kV according to patient size, radiation dose was kept as low as reasonably a chievable to obtain optimal diagnostic quality images. FINDINGS: CEREBRUM: The ventricles are normal for age. No evidence of midline shift, mass lesion, hemorrhage or acute in farction. No extra-axial fluid collections are seen. POSTERIOR FOSSA: The cerebellum and brainstem are intact. The 4th ventricle is midline. The cerebellopontine angle i s unremarkable. EXTRACRANIAL: The visualized portion of the orbits is intact. SKULL: The calvaria is intact. No evidence of skull fracture. CONCLUSION: 1. No acute intracranial abnormality. Derick Vera MD on December 22, 2016 at 13:18 Board Certified Radiologist. This report was verified electronically.
--- NOTE | 2016-12-22 14:02 | RADRPT ---
EXAM DATE/TIME: 12/22/2016 12:57 [facility] COMPARISON: CT THORAX W CONTRAST, December 19, 2016, 16:51. INDICATIONS : Status post rib trauma , possible retained hemothorax IV CONTRAST: 68 cc Omnipaque 350 (iohexol) IV RADIATION DOSE: 8.43 CTDIvol (mGy) MEDICAL HISTORY : Cardiovascular disease. SURGICAL HISTORY : Cholecystectomy. ENCOUNTER: Initial ACUITY: 1 day PAIN SCALE: Non-responsive LOCATION: chest TECHNIQUE: Volumetric scanning of the chest was performed. Using automated exposure control and adjustment of t he mA and/or kV according to patient size, radiation dose was kept as low as reasonably achievable to obtain optimal diagnostic quality images. FINDINGS: LUNGS: Mild progression of bilateral lower lobe airspace consolidation, left greater than right, consistent with pulmonary contusions. Aspiration is less likely. PLEURA: There is small left-sided pleural effusion that demonstrates simple fluid in density. Very subtle sim ple appearing fluid in the right major fissure. No evidence for significant hemothorax. MEDIASTINUM: Visualized great vessels are grossly unremarkable. Very central pulmonary arteries are patent. Mild t o moderate coronary artery calcifications. Heart is grossly unremarkable without significant pericard ial effusion. AXILLAE: Within normal limits. No lymphadenopathy. SKELETAL: Redemonstration of mildly displaced left-sided fifth through ninth rib fractures remaining osseous st ructures appear intact. MISCELLANEOUS: Visualized portions of the upper abdomen demonstrate diffusely decreased hepatic attenuation consiste nt with hepatic steatosis. Postsurgical features of prior cholecystectomy. CONCLUSION: 1. Redemonstration of mildly displaced left-sided fifth through ninth rib fractures. No pneumothorax. 2. Mild progression of bilateral lower lobe air space consolidation, left greater than right, consist ent with pulmonary contusions. Aspiration is less likely. 3. Small left-sided pleural effusion and very subtle fluid in the right major fissure. The fluid appe ar simple in and are very small in volume. No significant hemothorax. Kristian King MD on December 22, 2016 at 13:22 Board Certified Radiologist. This report was verified electronically.
--- NOTE | 2016-12-22 15:18 | PD.CONS ---
HPI Service Critical Care Medicine Consult Requested By Primary Care Physician Non-Staff History of Present Illness HPI 56-year-old male with history of psychiatric issues, presents to the ER today brought in by EMS after he fell from a 13 foot ladder, fell onto his left chest wall, he states it hit a stump, and is complaining of left chest wall pain. He denies any other injuries and was actually ambulatory on scene and walked himself to his own car. He denies any loss of consciousness, denies head injury , and denies any other issues. He states that the chest pain is a currently 10 out of 10. He is having back pains as well. Modifying Factors: None Associated Signs & Symptoms: Fall from 13 foot ladder, left chest wall injury Risk Factors: None History PFSH Past Medical History Bipolar Disorder: Yes Anxiety: Yes Depression: Yes Social History Alcohol Use: Yes Tobacco Use: No Substance Use: No Allergies-Medications Allergies-Medications (Allergen,Severity, Reaction): Coded Allergies: CRESTOR (Verified Allergy, Intermediate, 12/19/16) Invega Sustenna (Verified Allergy, Intermediate, 12/19/16) Green Level (Verified Allergy, Intermediate, 12/19/16) Omeprazole (Verified Allergy, Intermediate, 12/19/16) Risperdal (Verified Allergy, Intermediate, 12/19/16) Tramadol (Verified Allergy, Mild, 12/19/16) Reported Meds & Prescriptions Reported Meds & Active Scripts Active Reported Flonase Nasal [place] (Fluticasone Nasal [place]) 50 Mcg/Act [place] 50 Mcg EACH NARE BID Fenofibrate 40 Mg Tab 40 Mg PO DAILY Hydroxyzine Pamoate 100 Mg Cap 100 Mg PO QID PRN Metformin (Metformin HCl) 500 Mg Tab 500 Mg PO BIDPC With meals Tylenol-Codeine #3 (Acetaminophen-Codeine) 300-30 mg Tab 1 Tab PO Q4H PRN Flexeril (Cyclobenzaprine HCl) 10 Mg Tab 10 Mg PO TID Lorazepam 1 Mg Tab 1 Mg PO Q6H PRN Nexium (Esomeprazole DR) 40 Mg Capdr 40 Mg PO DAILY Lamictal (Lamotrigine) 150 Mg Tab 150 Mg PO BID Fluoxetine (Fluoxetine HCl) 60 Mg Tab 60 Mg PO DAILY Quetiapine (Quetiapine Fumarate) 400 Mg Tab 400 Mg PO BID Gabapentin 300 Mg Cap 300 Mg PO BID Administered Medications Medications (Trade) Dose Ordered Sig/Marvin Route PRN Reason Start Time Stop Time Status Last Admin Dose Admin Acetaminophen/ Hydrocodone Bitart ([place] 5-325 Mg) 2 tab Q4H PRN PO PAIN SCALE 6 TO 10 12/19/16 19:00 12/22/16 09:43 Bacitracin (Baciguent Oint) 1 applic BID TOP 12/19/16 21:00 12/21/16 08:38 Docusate Sodium (Colace) 100 mg BID PO 12/19/16 21:00 12/22/16 09:37 Morphine Sulfate (Morphine 1 Mg/ ml RUG CUTTER) 30 mg UNSCH IV 12/19/16 19:00 12/21/16 21:08 RUG CUTTER Dosage Infused (Pha) 1 Q8HR .XX 12/19/16 22:00 12/22/16 05:59 Lidocaine HCl (Lidoderm 5% Patch.12 Hr) 1 patch DAILY T-DERMAL 12/20/16 09:00 12/22/16 08:42 Methocarbamol (Robaxin) 500 mg Q8HR PO 12/20/16 06:45 12/22/16 05:59 Fluoxetine HCl (PROzac) 60 mg DAILY PO 12/20/16 09:00 12/22/16 08:39 Gabapentin (Neurontin) 300 mg BID PO 12/20/16 09:00 12/22/16 08:38 Lamotrigine (LaMICtal) 150 mg BID PO 12/20/16 09:00 12/22/16 08:33 Fenofibrate (Tricor) 48 mg DAILY PO 12/20/16 09:00 12/22/16 08:33 Hydroxyzine Pamoate (Vistaril) 100 mg QID PRN PO AGITATION 12/20/16 08:30 12/22/16 04:31 Magnesium Hydroxide (Milk Of Magnesia Liq) 30 ml HS PO 12/20/16 21:00 12/21/16 20:18 Lorazepam (Ativan) 1 mg Q6H PRN PO ANXIETY 12/20/16 12:30 12/22/16 04:31 Metformin HCl (Glucophage) 1,000 mg BIDPC PO 12/21/16 09:00 12/22/16 09:37 Pantoprazole Sodium (Protonix) 40 mg DAILY PO 12/21/16 09:00 12/22/16 08:38 Enoxaparin Sodium (Lovenox Inj) 30 mg Q12H SQ 12/21/16 13:00 12/22/16 00:28 Quetiapine Fumarate (SEROquel) 800 mg BID PO 12/21/16 21:00 12/22/16 08:33 ROS Review of Systems Except as stated in HPI: Complaining of chest wall pain, cough. Very drowsy hence detailed review of systems difficult to be obtained. Past Family Social History Allergies: Coded Allergies: CRESTOR (Verified Allergy, Intermediate, 12/19/16) Invega Sustenna (Verified Allergy, Intermediate, 12/19/16) Green Level (Verified Allergy, Intermediate, 12/19/16) Omeprazole (Verified Allergy, Intermediate, 12/19/16) Risperdal (Verified Allergy, Intermediate, 12/19/16) Tramadol (Verified Allergy, Mild, 12/19/16) Physical Exam Vital Signs Vital Signs Date Time Temp Pulse Resp B/P Pulse Ox O2 Delivery O2 Flow Rate FiO2 12/22/16 08:20 93 Nasal Cannula 3.00 12/22/16 08:00 96.3 97 18 121/85 90 12/22/16 07:00 Nasal Cannula 3.00 12/22/16 03:57 96.7 98 18 117/69 92 12/21/16 23:16 96.7 92 19 104/65 92 12/21/16 20:06 96.7 98 19 143/84 92 12/21/16 19:45 95 Nasal Cannula 3.00 12/21/16 17:09 92 Nasal Cannula 3.00 12/21/16 16:09 95.8 89 18 127/81 95 Physical Exam GENERAL: Well-developed middle age white male patient, sitting up in bed, drowsy , arousable, not in any acute distress SKIN: Focused skin assessment warm/dry. HEAD: Atraumatic. Normocephalic. EYES: Pupils equal and round. No scleral icterus. No injection or drainage. ENT: No nasal bleeding or discharge. Mucous membranes pink and moist. NECK: Trachea midline. No JVD. C-collar in place. CARDIOVASCULAR: Regular rate and rhythm. No murmur appreciated. RESPIRATORY: Breath sounds equal bilaterally. Scattered rhonchi at bases bilaterally. Tender to palpation of the left anterior and lateral chest wall. GASTROINTESTINAL: Abdomen tender to palpation of the left upper quadrant with guarding but no rebound, nondistended. Hepatic and splenic margins not palpable. MUSCULOSKELETAL: No obvious deformities. No clubbing. No cyanosis. No edema. NEUROLOGICAL: Drowsy, arousable. No obvious cranial nerve deficits. Motor grossly within normal limits. Normal speech. PSYCHIATRIC: Too drowsy to assess Laboratory Laboratory Tests Test 12/22/16 12:25 Blood Gas Puncture Site RT RADIAL Blood Gas Patient Temperature 98.6 Blood Gas HCO3 27 mmol/L Blood Gas Base Excess 2.0 mmol/L Blood Gas Oxygen Saturation 92 % Arterial Blood pH 7.34 Arterial Blood Partial 52 mmHg Pressure CO2 Arterial Blood Partial 73 mmHg Pressure O2 Arterial Blood Oxygen Content 13.8 Vol % Arterial Blood 2.0 % Carboxyhemoglobin Arterial Blood Methemoglobin 1.0 % Blood Gas Hemoglobin 10.6 G/DL Oxygen Delivery Device NASAL CANNULA Blood Gas Liter Flow 2 L/M Result Diagram: 12/19/16 1545 12/20/16 0547 Imaging Last Impressions Chest X-Ray 12/22/16 0600 Signed Impressions: Service Date/Time: Thursday, December 22, 2016 06:39 - CONCLUSION: Stable exam with underinflation and bibasilar opacities most likely representing atelectasis. Giovanni Mcfadden MD Head CT 12/22/16 0000 Signed Impressions: Service Date/Time: Thursday, December 22, 2016 12:51 - CONCLUSION: 1. No acute intracranial abnormality. Derick Vera MD Chest CT 12/22/16 0000 Signed Impressions: Service Date/Time: Thursday, December 22, 2016 12:57 - CONCLUSION: 1. Redemonstration of mildly displaced left-sided fifth through ninth rib fractures. No pneumothorax. 2. Mild progression of bilateral lower lobe air space consolidation, left greater than right, consistent with pulmonary contusions. Aspiration is less likely. 3. Small left-sided pleural effusion and very subtle fluid in the right major fissure. The fluid appear simple in and are very small in volume. No significant hemothorax. Kristian King MD Pelvis X-Ray 12/19/16 1518 Signed Impressions: Service Date/Time: Monday, December 19, 2016 15:21 - CONCLUSION: Intact pelvis. Giovanni Pradhan MD Cervical Spine CT 12/19/16 1518 Signed Impressions: Service Date/Time: Monday, December 19, 2016 16:42 - CONCLUSION: No fracture or subluxation of the cervical spine. Degenerative changes at C5/C6 and C6/C7 as above. Giovanni Pradhan MD Abdomen/Pelvis CT 12/19/16 1518 Signed Impressions: Service Date/Time: Monday, December 19, 2016 16:51 - CONCLUSION: No evidence of acute trauma of the abdomen or pelvis. Enlarged and mild fatty infiltrated liver. Giovanni Pradhan MD Assessment and Plan Assessment and Plan The patient is a 56-year-old male status post fall 13 feet from a ladder. Left chest pain. Left rib fractures 5 through 9. Pulmonary contusion. Acute resp failure Bipolar disorder Diabetes mellitus Plan: Neuro: Pain meds per trauma team. On morphine RUG CUTTER. Continue pain meds per trauma team. Being followed by psychiatry. Continue psych meds as ordered. CVS: watch for hypotension Pulm: on nasal cannula. Protecting airway adequately. GI/ liver: PO diet as tolerated Renal/ : IV hydration, strict I/O, monitor/ replete electrolytes, follow BUN/ Cr Heme: Follow CBC Endocrine: SSI, Glucophage. ID: high risk for developing pneumonia. No antibiotics at this time. Prophylaxis: lovenox for DVT prophylaxis Critical care will be available as needed. No need for intubation at this time. Further recommendations per trauma team. Eleuterio Santoyo MD Dec 22, 2016 15:18
[2016-12-22] MEDS: FLUTICASONE PROPIONATE 50 MCG/ACT 16 GM NASAL SPRAY NASAL SCH ×2 (17:59→21:00)
[2016-12-22] MEDS: MAGNESIUM HYDROXIDE SUSP 30 ML CUP PO SCH (21:00)
[2016-12-22] MEDS: MORPHINE SULFATE 30 MG/30 ML PCA IV SCH (21:21)
[2016-12-23] VITALS (13 sets, daily range): BP systolic 111–158; BP diastolic 63–97; PULSE 84–94; RESP 15–30; TEMP 97.6–98.8; O2SAT 93–99
[2016-12-23] MEDS: ENOXAPARIN SODIUM 30 MG/0.3 ML SYRINGE SQ SCH ×2 (01:00→16:00)
[2016-12-23] MEDS: PCA - TOTAL MG MORPHINE DELIVERED PER SHIFT SCH (06:00)
[2016-12-23] MEDS: METHOCARBAMOL 500 MG TAB PO SCH ×3 (06:56→22:42)
[2016-12-23] MEDS: INSULIN NovoLIN REGULAR SUPPLEMENTAL SCALE SQ SCH ×4 (06:57→21:00)
[2016-12-23] MEDS: metFORMIN HCL 500 MG TAB PO SCH ×2 (08:47→20:05)
[2016-12-23] MEDS: GABAPENTIN 300 MG CAP PO SCH ×2 (08:47→20:06)
[2016-12-23] MEDS: lamoTRIgine 100 MG TAB PO SCH ×2 (08:47→20:06)
[2016-12-23] MEDS: QUEtiapine FUMARATE 200 MG TAB PO SCH ×2 (08:47→20:06)
[2016-12-23] MEDS: FLUTICASONE PROPIONATE 50 MCG/ACT 16 GM NASAL SPRAY NASAL SCH ×2 (08:47→21:00)
[2016-12-23] MEDS: PANTOPRAZOLE SOD 40 MG DELAYED RELEASE TAB PO SCH (08:47)
[2016-12-23] MEDS: FLUoxetine HCL 20 MG CAP PO SCH (08:47)
[2016-12-23] MEDS: BACITRACIN TOP OINT 15 GM TUBE TOP SCH ×2 (08:48→21:00)
[2016-12-23] MEDS: LIDOCAINE HCL 5% PATCH T-DERMAL SCH (08:48)
[2016-12-23] MEDS: DOCUSATE SODIUM 100 MG CAP PO SCH ×2 (08:48→20:05)
[2016-12-23] MEDS: FENOFIBRATE 48 MG TAB PO SCH (08:48)
[2016-12-23] MEDS ORDERED: BISACODYL 10 MG SUPP RECTAL PRN (09:45)
[2016-12-23] MEDS: LACTULOSE SYRUP 20 GM/30 ML CUP PO SCH (10:33)
[2016-12-23] MEDS: KETOROLAC TROMETHAMINE 30 MG/ML (IVP) VIAL IV PUSH SCH ×3 (10:33→23:37)
[2016-12-23] MEDS: ACETAMINOPHEN/HYDROcodone 325 MG/5 MG TAB PO PRN ×2 (10:34→20:31)
--- NOTE | 2016-12-23 14:41 | HHI.PR ---
Subjective Subjective Notes Feeling better,slightly confused Still is hypoxic on RA 85% Objective Vitals/I&O Vital Signs Date Time Temp Pulse Resp B/P Pulse Ox O2 Delivery O2 Flow Rate FiO2 12/23/16 14:00 98.2 88 17 111/63 93 12/23/16 09:45 Nasal Cannula 3.00 Labs lungs-clear b/l abdomen-soft,benign Radiology Last Impressions Chest X-Ray 12/20/16 0700 Signed Impressions: Service Date/Time: Tuesday, December 20, 2016 05:30 - CONCLUSION: Interval development of right lung atelectasis and/or infiltrate not present previously and the left lung base atelectasis has not significantly changed. Kurtis Rudd MD Head CT 12/19/16 1529 Signed Impressions: Service Date/Time: Monday, December 19, 2016 16:42 - CONCLUSION: Negative noncontrast CT brain. Gautam Mary MD Pelvis X-Ray 12/19/16 151 Signed Impressions: Service Date/Time: Monday, December 19, 2016 15:21 - CONCLUSION: Intact pelvis. Giovanni Pradhan MD Chest CT 12/19/161517 Signed Impressions: Service Date/Time: Monday, December 19, 2016 16:51 - CONCLUSION: 1. Multiple left rib fractures as above. Associated contusion of the left mid to lower lung. No pneumothorax or hemothorax. 2. Mild bilateral dependent atelectasis. Giovanni Pradhan MD Cervical Spine CT 12/19/161517 Signed Impressions: Service Date/Time: Monday, December 19, 2016 16:42 - CONCLUSION: No fracture or subluxation of the cervical spine. Degenerative changes at C5/C6 and C6/C7 as above. Giovanni Pradhan MD Abdomen/Pelvis CT 12/19/161517 Signed Impressions: Service Date/Time: Monday, December 19, 2016 16:51 - CONCLUSION: No evidence of acute trauma of the abdomen or pelvis. Enlarged and mild fatty infiltrated liver. Giovanni Pradhan MD Cardiovascular: Regular Lungs: Clear Abdomen: Non-distended Extremities: Perfused A/P Problem List: (1) Fall from ladder (2) Pulmonary contusion (3) Multiple rib fractures Assessment and Plan still has episodes of desaturation requires supp 02 to keep spo2 > 90 ies range Problem Qualifiers (1) Fall from ladder: Qualified Code: W11.XXXA - Fall from ladder, initial encounter (2) Pulmonary contusion: Qualified Code: S27.321A - Contusion of left lung, initial encounter (3) Multiple rib fractures: Qualified Code: S22.42XA - Closed fracture of multiple ribs of left side, initial encounter Hailey Ulloa MD Dec 23, 2016 14:41
[2016-12-23] MEDS: MAGNESIUM HYDROXIDE SUSP 30 ML CUP PO SCH (20:05)
[2016-12-23] MEDS: HYDROmorphone HCL PF 1 MG/ML VIAL IVP PRN (21:32)
[2016-12-23] MEDS: LORazepam 1 MG TAB PO PRN (23:37)
[2016-12-23] MEDS: RESP: ALBUTEROL 2.5 MG/IPRATROPIUM 0.5 MG NEB (PRN) NEB (23:38)
[2016-12-23] MEDS ORDERED: LORazepam 2 MG/ML VIAL IV PUSH ONE (23:45)
[2016-12-24] VITALS (15 sets, daily range): BP systolic 88–135; BP diastolic 55–74; PULSE 90–122; RESP 17–28; TEMP 97.4–98.2; O2SAT 93–100
[2016-12-24] MEDS: ACETAMINOPHEN/HYDROcodone 325 MG/5 MG TAB PO PRN ×2 (00:15→19:11)
[2016-12-24] MEDS: ENOXAPARIN SODIUM 30 MG/0.3 ML SYRINGE SQ SCH (01:00)
[2016-12-24] MEDS ORDERED: SODIUM CHLOR 0.9% 1000 ML INJ 1,000 ML IV ONE (03:15)
[2016-12-24 04:59] LABS: AUTOMATED NEUTROPHIL # 7.7 TH/MM3 (1.8-7.7); BASOPHIL % 0.2 % (0.0-2.0); EOSINOPHIL # 0.1 TH/MM3 (0-0.4); EOSINOPHIL % 0.9 % (0.0-4.0); HEMATOCRIT 25.7 % (39.0-51.0); HEMO FLAGS DIFF FINAL; LYMPH % 10.6 % (9.0-44.0); MEAN CELL VOLUME 80.6 FL (80.0-100.0); MEAN CORPUSCULAR HEMOGLOBIN 26.4 PG (27.0-34.0); MEAN CORPUSCULAR HGB CONC 32.8 % (32.0-36.0); MONO % 6.3 % (0.0-8.0); PLATELET COUNT 237 TH/MM3 (150-450); RED BLOOD COUNT 3.19 MIL/MM3 (4.50-5.90); WHITE BLOOD COUNT 9.4 TH/MM3 (4.0-11.0)
[2016-12-24 05:19] LABS: ANION GAP 5 MEQ/L (5-15); AST (GOT) 28 U/L (15-37); BICARBONATE 30.7 MEQ/L (21.0-32.0); BLOOD UREA NITROGEN 14 MG/DL (7-18); CHLORIDE 106 MEQ/L (98-107); GLOMERULAR FILTRATION RATE 90 ML/MIN (>89); POTASSIUM 5.2 MEQ/L (3.5-5.1); SODIUM (NA) 142 MEQ/L (136-145)
[2016-12-24 05:23] LABS: ALKALINE PHOSPHATASE 130 U/L (45-117); ALT (GPT) 67 U/L (12-78); TOTAL BILIRUBIN ADULT 0.3 MG/DL (0.2-1.0)
--- NOTE | 2016-12-24 06:37 | RADRPT ---
EXAM DATE/TIME: 12/24/2016 05:20 [facility] COMPARISON: CHEST SINGLE AP, December 22, 2016, 6:39. INDICATIONS : Pt has atelectasis, shortness of breath. MEDICAL HISTORY : Cardiovascular disease. SURGICAL HISTORY : Cholecystectomy. ENCOUNTER: Subsequent ACUITY: 2 days PAIN SCORE: Non-responsive. LOCATION: Bilateral chest FINDINGS: The cardiac silhouette is enlarged in transverse diameter. There is left lower lobe atelectasis versu s pneumonia. A large left sided effusion is present. The findings have worsened when compared with th e prior examination. The right lung is free of acute parenchymal opacity. There is mediastinal shift to the right. CONCLUSION: 1. Increasing left basilar atelectasis and left-sided effusion Talib Arredondo MD on December 24, 2016 at 6:35 Board Certified Radiologist. This report was verified electronically.
[2016-12-24] MEDS: METHOCARBAMOL 500 MG TAB PO SCH ×3 (06:46→21:34)
[2016-12-24] MEDS: KETOROLAC TROMETHAMINE 30 MG/ML (IVP) VIAL IV PUSH SCH ×3 (06:47→17:15)
[2016-12-24] MEDS: INSULIN NovoLIN REGULAR SUPPLEMENTAL SCALE SQ SCH ×4 (07:00→20:54)
[2016-12-24] MEDS: LIDOCAINE HCL 5% PATCH T-DERMAL SCH (09:04)
[2016-12-24] MEDS: FLUoxetine HCL 20 MG CAP PO SCH (09:04)
[2016-12-24] MEDS: lamoTRIgine 100 MG TAB PO SCH ×2 (09:04→19:58)
[2016-12-24] MEDS: QUEtiapine FUMARATE 200 MG TAB PO SCH ×2 (09:04→19:57)
[2016-12-24] MEDS: metFORMIN HCL 500 MG TAB PO SCH ×2 (09:05→17:15)
[2016-12-24] MEDS: PANTOPRAZOLE SOD 40 MG DELAYED RELEASE TAB PO SCH (09:05)
[2016-12-24] MEDS: DOCUSATE SODIUM 100 MG CAP PO SCH ×2 (09:05→19:58)
[2016-12-24] MEDS: FENOFIBRATE 48 MG TAB PO SCH (09:05)
[2016-12-24] MEDS: GABAPENTIN 300 MG CAP PO SCH ×2 (09:05→19:57)
[2016-12-24] MEDS: BACITRACIN TOP OINT 15 GM TUBE TOP SCH ×2 (09:06→21:00)
[2016-12-24] MEDS: LACTULOSE SYRUP 20 GM/30 ML CUP PO SCH (09:06)
[2016-12-24] MEDS: FLUTICASONE PROPIONATE 50 MCG/ACT 16 GM NASAL SPRAY NASAL SCH ×2 (09:06→20:00)
--- NOTE | 2016-12-24 11:43 | RADRPT ---
EXAM DATE/TIME: 12/24/2016 11:19 [facility] COMPARISON: CT THORAX W CONTRAST, December 22, 2016, 12:57. INDICATIONS : Evaluate of pleural effusion. RADIATION DOSE: 6.87 CTDIvol (mGy) MEDICAL HISTORY : Cardiovascular disease. Bipolar SURGICAL HISTORY : Cholecystectomy. ENCOUNTER: Subsequent ACUITY: 1 day PAIN SCALE: 0/10 LOCATION: Chest TECHNIQUE: Volumetric scanning of the chest was performed. Using automated exposure control and adjustment of t he mA and/or kV according to patient size, radiation dose was kept as low as reasonably achievable to obtain optimal diagnostic quality images. FINDINGS: There is increasing pleural effusion on the left with consolidative changes associated with multiple rib fracture. Minimal parenchymal changes are seen in the right base. Moderate coronary calcifications are noted. There is no pericardial effusion. CONCLUSION: Increasing large left pleural effusion. Significant consolidative changes are evident as well. Aroldo Vera MD FACR on December 24, 2016 at 11:36 Board Certified Radiologist. This report was verified electronically.
[2016-12-24] MEDS: LORazepam 1 MG TAB PO PRN (15:13)
[2016-12-24] MEDS ORDERED: MIDAZOLAM HCL 5 MG/ML VIAL (1 ML) ONE (15:30)
[2016-12-24] MEDS ORDERED: LIDOCAINE HCL 1% 50 ML VIAL ONE (15:37)
--- NOTE | 2016-12-24 16:30 | RADRPT ---
EXAM DATE/TIME: 12/24/2016 00:00 [facility] COMPARISON: No previous studies available for comparison. INDICATIONS : Place and the possible left chest tube. CONCLUSION: I have discussed the case with doctor Dr Aroldo Vera MD FACR on December 24, 2016 at 16:27 Board Certified Radiologist. This report was verified electronically.
--- NOTE | 2016-12-24 17:05 | RADRPT ---
EXAM DATE/TIME: 12/24/2016 15:46 [facility] COMPARISON: CHEST SINGLE AP, December 24, 2016, 5:20. INDICATIONS : Evaluate left side chest tube. MEDICAL HISTORY : Cardiovascular disease. SURGICAL HISTORY : Cholecystectomy. ENCOUNTER: Subsequent ACUITY: 2 days PAIN SCORE: Non-responsive. LOCATION: Bilateral chest FINDINGS: Large bore chest tube is in place on the left with significant improvement in the appea ricky of the chest with less effusion. Consolidative changes persist in the left base. Right lung i s clear. CONCLUSION: Large bore chest tube in good position on the left with reduction in the amount of le ft effusion. Aroldo Vera MD FACR on December 24, 2016 at 17:01 Board Certified Radiologist. This report was verified electronically.
--- NOTE | 2016-12-24 17:12 | HHI.CCPN ---
Subjective Brief History 56-year-old bipolar patient fell about 13 feet ladder and landed on his left side fracturing fifth 678 and ninth rib sustaining pulmonary contusion. Patient was initially transferred to the floor and did well but developed progressive shortness of breath apparently yesterday and opacification of the left chest which was followed by the CT scan which reveals a huge left pleural effusion consistent with hemothorax 24 Hour Review/Hospital Course Patient has dullness over the percussion of the left chest which is consistent with a large left hemothorax Chest tube is placed and 1700 cc of old blood is obtained Objective Vital Signs Date Time Temp Pulse Resp B/P Pulse Ox O2 Delivery O2 Flow Rate FiO2 12/24/16 16:00 98.2 96 19 91/60 95 12/24/16 07:41 Nasal Cannula 6.00 Intake and Output 12/23/16 12/23/16 12/24/16 08:00 16:00 00:00 Intake Total 200 ml 700 ml 280 ml Output Total 300 ml 750 ml 900 ml Balance -100 ml -50 ml -620 ml Result Diagram: 12/24/16 0413 12/24/16 0413 Imaging Last 24 hours Impressions Chest X-Ray 12/24/16 0600 Signed Impressions: Service Date/Time: Saturday, December 24, 2016 05:20 - CONCLUSION: 1. Increasing left basilar atelectasis and left-sided effusion Talib Arredondo MD Exam [employer] Awake alert oriented Hemodynamic/Cardiac Hemodynamically stable Pulmonary/Respiratory Unilateral breath sounds on the right and no breath sounds on the left Dullness on percussion Left tube thoracostomy with drainage of 1700 cc of old blood Patient feeling right away better and having easier time breathing Abdomen/GI Nutrition Abdomen soft Assessment and Plan Attestation The exam, history, and the medical decision-making described in the above note were completed with the assistance of the mid-level provider. I reviewed and agree with the findings presented. I attest that I had a [id number] encounter with the patient on the same day, and personally performed and documented my assessment and findings in the medical record. Critical care time 42 minutes. Mee Aleman MD Dec 24, 2016 17:12
[2016-12-24] MEDS ORDERED: BISACODYL 10 MG SUPP RECTAL ONE (18:00)
[2016-12-24] MEDS: MAGNESIUM HYDROXIDE SUSP 30 ML CUP PO SCH (19:57)
[2016-12-24] MEDS: SODIUM CHLORIDE 0.9% FLUSH 10 ML FLUSH IV FLUSH PRN (19:58)
[2016-12-24] MEDS: HYDROmorphone HCL PF 1 MG/ML VIAL IVP PRN (22:09)
[2016-12-25] VITALS (9 sets, daily range): BP systolic 107–167; BP diastolic 66–74; PULSE 97–108; RESP 19–24; TEMP 96–98.6; O2SAT 91–98
[2016-12-25] MEDS: KETOROLAC TROMETHAMINE 30 MG/ML (IVP) VIAL IV PUSH SCH ×2 (00:15→06:32)
[2016-12-25] MEDS: HYDROmorphone HCL PF 1 MG/ML VIAL IVP PRN ×6 (03:32→22:37)
--- NOTE | 2016-12-25 04:26 | RADRPT ---
EXAM DATE/TIME: 12/25/2016 03:11 [facility] COMPARISON: CHEST SINGLE AP, December 24, 2016, 15:46. INDICATIONS : Evaluate pneumothorax, Right side chest tube MEDICAL HISTORY : Cardiovascular disease. SURGICAL HISTORY : Cholecystectomy. ENCOUNTER: Subsequent ACUITY: 3 days PAIN SCORE: 7/10 LOCATION: Bilateral chest FINDINGS: A single view of the chest demonstrates left chest tube without significant pneumothorax. There is ba silar airspace disease, left greater than right. No pneumothorax. Heart size enlarged. CONCLUSION: 1. Left chest tube without significant pneumothorax. Basilar airspace disease, left greater than righ t. Leoncio Nicholas MD on December 25, 2016 at 4:20 Board Certified Radiologist. This report was verified electronically.
[2016-12-25 05:00] LABS: AUTOMATED NEUTROPHIL # 5.2 TH/MM3 (1.8-7.7); BASOPHIL % 0.2 % (0.0-2.0); EOSINOPHIL # 0.2 TH/MM3 (0-0.4); EOSINOPHIL % 2.6 % (0.0-4.0); HEMATOCRIT 22.1 % (39.0-51.0); HEMO FLAGS DIFF FINAL; LYMPH % 13.8 % (9.0-44.0); LYMPHOCYTE # 0.9 TH/MM3 (1.0-4.8); MEAN CELL VOLUME 79.8 FL (80.0-100.0); MEAN CORPUSCULAR HEMOGLOBIN 26.3 PG (27.0-34.0); MEAN CORPUSCULAR HGB CONC 32.9 % (32.0-36.0); MONO % 7.5 % (0.0-8.0); NEUT % 75.9 % (16.0-70.0); PLATELET COUNT 236 TH/MM3 (150-450); RED BLOOD COUNT 2.77 MIL/MM3 (4.50-5.90); RED CELL DISTRIBUTION WIDTH 13.8 % (11.6-17.2); WHITE BLOOD COUNT 6.8 TH/MM3 (4.0-11.0)
[2016-12-25 05:23] LABS: ALKALINE PHOSPHATASE 134 U/L (45-117); ALT (GPT) 66 U/L (12-78); ANION GAP 7 MEQ/L (5-15); AST (GOT) 31 U/L (15-37); BICARBONATE 29.8 MEQ/L (21.0-32.0); BLOOD UREA NITROGEN 15 MG/DL (7-18); CHLORIDE 103 MEQ/L (98-107); GLOMERULAR FILTRATION RATE 112 ML/MIN (>89); POTASSIUM 4.1 MEQ/L (3.5-5.1); SODIUM (NA) 140 MEQ/L (136-145); TOTAL BILIRUBIN ADULT 0.2 MG/DL (0.2-1.0)
[2016-12-25] MEDS: INSULIN NovoLIN REGULAR SUPPLEMENTAL SCALE SQ SCH ×4 (06:16→21:00)
[2016-12-25] MEDS: METHOCARBAMOL 500 MG TAB PO SCH ×3 (06:32→21:01)
[2016-12-25] MEDS: QUEtiapine FUMARATE 200 MG TAB PO SCH ×2 (07:52→21:01)
[2016-12-25] MEDS: metFORMIN HCL 500 MG TAB PO SCH ×2 (07:52→17:54)
[2016-12-25] MEDS: lamoTRIgine 100 MG TAB PO SCH ×2 (07:52→21:07)
[2016-12-25] MEDS: LACTULOSE SYRUP 20 GM/30 ML CUP PO SCH (07:52)
[2016-12-25] MEDS: FENOFIBRATE 48 MG TAB PO SCH (07:52)
[2016-12-25] MEDS: LIDOCAINE HCL 5% PATCH T-DERMAL SCH (07:53)
[2016-12-25] MEDS: GABAPENTIN 300 MG CAP PO SCH ×2 (07:53→21:01)
[2016-12-25] MEDS: SODIUM CHLORIDE 0.9% FLUSH 10 ML FLUSH IV FLUSH PRN (07:54)
[2016-12-25] MEDS: DOCUSATE SODIUM 100 MG CAP PO SCH ×2 (07:57→21:01)
[2016-12-25] MEDS: PANTOPRAZOLE SOD 40 MG DELAYED RELEASE TAB PO SCH (07:58)
[2016-12-25] MEDS: BACITRACIN TOP OINT 15 GM TUBE TOP SCH ×2 (08:20→21:08)
[2016-12-25] MEDS: FLUoxetine HCL 20 MG CAP PO SCH (08:20)
[2016-12-25] MEDS: ACETAMINOPHEN/HYDROcodone 325 MG/5 MG TAB PO PRN (08:25)
[2016-12-25] MEDS: FLUTICASONE PROPIONATE 50 MCG/ACT 16 GM NASAL SPRAY NASAL SCH ×2 (09:00→21:07)
[2016-12-25] MEDS: oxyCODONE/ACETAMINOPHEN 5 MG/325 MG TAB PO PRN ×3 (11:54→21:01)
--- NOTE | 2016-12-25 12:20 | HHI.CCPN ---
Subjective Brief History 56-year-old bipolar patient fell about 13 feet ladder and landed on his left side fracturing fifth 678 and ninth rib sustaining pulmonary contusion. Patient was initially transferred to the floor and did well but developed progressive shortness of breath apparently yesterday and opacification of the left chest which was followed by the CT scan which reveals a huge left pleural effusion consistent with hemothorax 24 Hour Review/Hospital Course Patient has dullness over the percussion of the left chest which is consistent with a large left hemothorax Chest tube is placed and 1700 cc of old blood is obtained 12/25/16 Patient doing better at this time Bilateral good breath sounds and breathing much improved since the drainage of the large hemothorax Patient is noncompliant with his care has very low pain tolerance due to narcotics abuse at home and is requiring fair amount of pain medications. Patient's is very abusive to the staff cussing the nurses out and arguing about pain medication, care and threatening the nurses Part of patient's behavior is clearly due to bipolar disorder and I'll have neuropsychologist evaluated the patient more thoroughly in next 48 hours. Will transfer patient to the floor today any be complies with care as far as getting out of bed doing therapy deep breathing and following the process he will do well. Objective Vital Signs Date Time Temp Pulse Resp B/P Pulse Ox O2 Delivery O2 Flow Rate FiO2 12/25/16 06:00 108 12/25/16 04:00 97.8 19 126/74 98 12/24/16 22:00 Simple Mask 10.00 Intake and Output 12/24/16 12/24/16 12/25/16 08:00 16:00 00:00 Intake Total 1240 ml 400 ml 360 ml Output Total 0 ml 850 ml 2150 ml Balance 1240 ml -450 ml -1790 ml Result Diagram: 12/25/16 0257 12/25/16 0257 Imaging Last 24 hours Impressions Chest X-Ray 12/25/16 06 Signed Impressions: Service Date/Time: Sunday, December 25, 2016 03:11 - CONCLUSION: 1. Left chest tube without significant pneumothorax. Basilar airspace disease, left greater than right. Leoncio Nicholas MD Exam [employer] Awake alert oriented Very argumentative abusive to the nursing staff with insults and threats Demanding to get his pain medication and then arguing about it repeatedly Very noncompliant with care Hemodynamic/Cardiac Hemodynamically stable Pulmonary/Respiratory Bilateral breath sounds much improved since the drainage of the hemothorax yet refuses to use the incentive spirometer take deep breaths participate in therapy Abdomen/GI Nutrition Abdomen soft tolerates diet well Assessment and Plan Attestation Hemoglobin 7.3 however patient appears to be stable hemodynamically do not see a clear indication or reason to transfuse blood at this point Will recheck hemoglobin tomorrow Patient needs to be out of bed work with physical therapy Transferred to floor The exam, history, and the medical decision-making described in the above note were completed with the assistance of the mid-level provider. I reviewed and agree with the findings presented. I attest that I had a [id number] encounter with the patient on the same day, and personally performed and documented my assessment and findings in the medical record. Critical care time 38 minutes. Mee Aleman MD Dec 25, 2016 12:20
[2016-12-25] MEDS: MAGNESIUM HYDROXIDE SUSP 30 ML CUP PO SCH (21:01)
[2016-12-25] MEDS: LORazepam 1 MG TAB PO PRN (21:15)
[2016-12-26] VITALS (9 sets, daily range): BP systolic 109–125; BP diastolic 63–79; PULSE 72–106; RESP 17–27; TEMP 95.5–97.4; O2SAT 92–97
[2016-12-26] MEDS: ENOXAPARIN SODIUM 30 MG/0.3 ML SYRINGE SQ SCH ×2 (01:57→14:41)
[2016-12-26] MEDS: oxyCODONE/ACETAMINOPHEN 5 MG/325 MG TAB PO PRN ×5 (01:57→21:24)
[2016-12-26] MEDS: RESP: ALBUTEROL 2.5 MG/IPRATROPIUM 0.5 MG NEB (PRN) NEB (02:21)
[2016-12-26] MEDS: HYDROmorphone HCL PF 1 MG/ML VIAL IVP PRN ×6 (03:42→23:39)
--- NOTE | 2016-12-26 05:15 | RADRPT ---
EXAM DATE/TIME: 12/26/2016 04:33 [facility] COMPARISON: CHEST SINGLE AP, December 25, 2016, 3:11. INDICATIONS : Hemothorax. MEDICAL HISTORY : Cardiovascular disease. SURGICAL HISTORY : Cholecystectomy. ENCOUNTER: Subsequent ACUITY: 1 week PAIN SCORE: Non-responsive. LOCATION: chest FINDINGS: Single AP view of the chest. Left-sided chest tube in place. No change in left lower lobe pulmonary c onsolidation and small left pleural effusion. Possible small 5 mm pneumothorax seen at the level of t he lateral upper lung. CONCLUSION: Possible small left pneumothorax identified. Chest tube in place. Left lower lobe con solidation and pleural effusion unchanged. Shimon Fuchs MD on December 26, 2016 at 5:11 Board Certified Radiologist. This report was verified electronically.
[2016-12-26] MEDS: METHOCARBAMOL 500 MG TAB PO SCH ×3 (05:26→21:23)
[2016-12-26] MEDS: INSULIN NovoLIN REGULAR SUPPLEMENTAL SCALE SQ SCH ×4 (05:26→20:09)
[2016-12-26] MEDS: FLUoxetine HCL 20 MG CAP PO SCH (08:34)
[2016-12-26] MEDS: FENOFIBRATE 48 MG TAB PO SCH (08:34)
[2016-12-26] MEDS: DOCUSATE SODIUM 100 MG CAP PO SCH ×2 (08:34→20:08)
[2016-12-26] MEDS: GABAPENTIN 300 MG CAP PO SCH ×2 (08:34→20:08)
[2016-12-26] MEDS: PANTOPRAZOLE SOD 40 MG DELAYED RELEASE TAB PO SCH (08:34)
[2016-12-26] MEDS: metFORMIN HCL 500 MG TAB PO SCH ×2 (08:34→18:14)
[2016-12-26] MEDS: QUEtiapine FUMARATE 200 MG TAB PO SCH ×2 (08:34→20:08)
[2016-12-26] MEDS: LACTULOSE SYRUP 20 GM/30 ML CUP PO SCH (08:34)
[2016-12-26] MEDS: LIDOCAINE HCL 5% PATCH T-DERMAL SCH (08:35)
[2016-12-26] MEDS: lamoTRIgine 100 MG TAB PO SCH ×2 (08:38→20:08)
[2016-12-26] MEDS: BACITRACIN TOP OINT 15 GM TUBE TOP SCH ×2 (08:39→20:09)
[2016-12-26] MEDS: FLUTICASONE PROPIONATE 50 MCG/ACT 16 GM NASAL SPRAY NASAL SCH ×2 (08:39→20:08)
[2016-12-26] MEDS: MAGNESIUM CITRATE SOLN 300 ML BTL PO ONE ×2 (08:45→14:41)
[2016-12-26] MEDS: LORazepam 1 MG TAB PO PRN (12:21)
--- NOTE | 2016-12-26 13:29 | HHI.PR ---
Subjective Subjective Notes Reports he fell last night onto his stomach when his leg got caught up in his chest tube Pain better today Objective Vitals/I&O Vital Signs Date Time Temp Pulse Resp B/P Pulse Ox O2 Delivery O2 Flow Rate FiO2 12/26/16 12:00 95.5 95 21 119/69 95 12/26/16 08:35 Simple Mask 6.00 Labs Laboratory Tests Test 12/22/16 12/25/16 12:25 02:57 Blood Gas Puncture Site RT RADIAL Blood Gas Patient Temperature 98.6 Blood Gas HCO3 27 mmol/L Blood Gas Base Excess 2.0 mmol/L Blood Gas Oxygen Saturation 92 % Arterial Blood pH 7.34 Arterial Blood Partial 52 mmHg Pressure CO2 Arterial Blood Partial 73 mmHg Pressure O2 Arterial Blood Oxygen Content 13.8 Vol % Arterial Blood 2.0 % Carboxyhemoglobin Arterial Blood Methemoglobin 1.0 % Blood Gas Hemoglobin 10.6 G/DL Oxygen Delivery Device NASAL CANNULA Blood Gas Liter Flow 2 L/M White Blood Count 6.8 TH/MM3 Red Blood Count 2.77 MIL/MM3 Hemoglobin 7.3 GM/DL Hematocrit 22.1 % Mean Corpuscular Volume 79.8 FL Mean Corpuscular Hemoglobin 26.3 PG Mean Corpuscular Hemoglobin 32.9 % Concent Red Cell Distribution Width 13.8 % Platelet Count 236 TH/MM3 Mean Platelet Volume 6.7 FL Neutrophils (%) (Auto) 75.9 % Lymphocytes (%) (Auto) 13.8 % Monocytes (%) (Auto) 7.5 % Eosinophils (%) (Auto) 2.6 % Basophils (%) (Auto) 0.2 % Neutrophils # (Auto) 5.2 TH/MM3 Lymphocytes # (Auto) 0.9 TH/MM3 Monocytes # (Auto) 0.5 TH/MM3 Eosinophils # (Auto) 0.2 TH/MM3 Basophils # (Auto) 0.0 TH/MM3 CBC Comment DIFF FINAL Differential Comment Sodium Level 140 MEQ/L Potassium Level 4.1 MEQ/L Chloride Level 103 MEQ/L Carbon Dioxide Level 29.8 MEQ/L Anion Gap 7 MEQ/L Blood Urea Nitrogen 15 MG/DL Creatinine 0.73 MG/DL Estimat Glomerular Filtration 112 ML/MIN Rate Random Glucose 149 MG/DL Calcium Level 8.4 MG/DL Total Bilirubin 0.2 MG/DL Aspartate Amino Transf 31 U/L (AST/SGOT) Alanine Aminotransferase 66 U/L (ALT/SGPT) Alkaline Phosphatase 134 U/L Total Protein 5.7 GM/DL Albumin 2.8 GM/DL Radiology Last Impressions Chest X-Ray 12/20/16 0700 Signed Impressions: Service Date/Time: Tuesday, December 20, 2016 05:30 - CONCLUSION: Interval development of right lung atelectasis and/or infiltrate not present previously and the left lung base atelectasis has not significantly changed. Kurtis Rudd MD Head CT 12/19/16 1529 Signed Impressions: Service Date/Time: Monday, December 19, 2016 16:42 - CONCLUSION: Negative noncontrast CT brain. Gautam Mary MD Pelvis X-Ray 12/19/16 1518 Signed Impressions: Service Date/Time: Monday, December 19, 2016 15:21 - CONCLUSION: Intact pelvis. Giovanni Pradhan MD Chest CT 12/19/16 1518 Signed Impressions: Service Date/Time: Monday, December 19, 2016 16:51 - CONCLUSION: 1. Multiple left rib fractures as above. Associated contusion of the left mid to lower lung. No pneumothorax or hemothorax. 2. Mild bilateral dependent atelectasis. Giovanni Pradhan MD Cervical Spine CT 12/19/16 1518 Signed Impressions: Service Date/Time: Monday, December 19, 2016 16:42 - CONCLUSION: No fracture or subluxation of the cervical spine. Degenerative changes at C5/C6 and C6/C7 as above. Giovanni Pradhan MD Abdomen/Pelvis CT 12/19/16 1518 Signed Impressions: Service Date/Time: Monday, December 19, 2016 16:51 - CONCLUSION: No evidence of acute trauma of the abdomen or pelvis. Enlarged and mild fatty infiltrated liver. Giovanni Pradhan MD Narrative Exam GENERAL: 56-year-old obese male lying in bed with oxygen mask on his forehead. SKIN: Warm and dry. HEAD: Normocephalic. ENT: No nasal bleeding or discharge. Mucous membranes pink and moist. NECK: Trachea midline. No JVD. CARDIOVASCULAR: Regular rate and rhythm. RESPIRATORY: No accessory muscle use. Lungs diminished to auscultation in all hughes. Left lateral chest tube in place secured to -20 cm suction with sanguinous drainage noted. No air leak. GASTROINTESTINAL: Abdomen soft, non-tender, nondistended. + BS. MUSCULOSKELETAL: Extremities without cyanosis, or edema. NEUROLOGICAL: Awake and alert. Normal speech. A/P Problem List: (1) Fall from ladder (2) Pulmonary contusion (3) Multiple rib fractures Assessment and Plan INJURIES LEFT rib fx (5-9) LEFT lung contusion 12/24: LEFT CT placed for hemothorax Diet: 1999 ADA diet. Pulmonary: IS. EZpap. nebs. Pain: Percocet. Dilaudid IV. Robaxin. Lidoderm patch. Activity: OOB. PT evaluating. No home needs. GI: Protonix PO Bowel: Colace. Lactulose. No BM yet. Mag citrate x1. Dulcolax MD PRN DVT: SCD's. Lovenox 30 BID Left rib fractures, Left lung contusion Aggressive pulmonary toileting Pain control Supportive care 12/24: LEFT CT placed for hemothorax Chest tube placed to water seal today Plan to discontinue left chest tube tomorrow OOB- PT Case management consulted to assist discharge planning. Plan for patient to discharge home in 1-2 days Problem Qualifiers (1) Fall from ladder: Qualified Code: W11.XXXA - Fall from ladder, initial encounter (2) Pulmonary contusion: Qualified Code: S27.321A - Contusion of left lung, initial encounter (3) Multiple rib fractures: Qualified Code: S22.42XA - Closed fracture of multiple ribs of left side, initial encounter Pelon Boyer Dec 26, 2016 13:29
[2016-12-26 15:46] LABS: HEMATOCRIT 22.4 % (39.0-51.0); REVIEW FLAG FINAL
[2016-12-26] MEDS: MAGNESIUM HYDROXIDE SUSP 30 ML CUP PO SCH (20:07)
[2016-12-26] MEDS: traZODone HCL 100 MG TAB PO PRN (21:23)
[2016-12-27] VITALS: BP 139/93; PULSE 93; RESP 18; TEMP 96; O2SAT 95
[2016-12-27] MEDS: ENOXAPARIN SODIUM 30 MG/0.3 ML SYRINGE SQ SCH ×2 (00:52→12:36)
[2016-12-27] MEDS: oxyCODONE/ACETAMINOPHEN 5 MG/325 MG TAB PO PRN ×5 (04:19→21:39)
[2016-12-27] MEDS: METHOCARBAMOL 500 MG TAB PO SCH ×3 (05:15→21:39)
[2016-12-27 05:16] LABS: HEMATOCRIT 23.4 % (39.0-51.0); REVIEW FLAG FINAL
[2016-12-27] MEDS: INSULIN NovoLIN REGULAR SUPPLEMENTAL SCALE SQ SCH ×4 (06:09→19:53)
[2016-12-27] MEDS: HYDROmorphone HCL PF 1 MG/ML VIAL IVP PRN ×6 (06:31→23:11)
--- NOTE | 2016-12-27 07:26 | RADRPT ---
EXAM DATE/TIME: 12/27/2016 06:16 [facility] COMPARISON: CHEST SINGLE AP, December 26, 2016, 4:33. INDICATIONS : Expiration, left chest tube. MEDICAL HISTORY : Cardiovascular disease. SURGICAL HISTORY : None. ENCOUNTER: Initial ACUITY: 1 week PAIN SCORE: 10/10 LOCATION: Left chest FINDINGS: One or stable left-sided chest tube in place. Very subtle left-sided residual pneumothorax. Left lowe r lobe airspace disease and trace pleural effusion similar to prior exam. Cardiomediastinal contours are stable. Left-sided rib fractures are again noted. CONCLUSION: 1. Stable left-sided chest tube with very subtle residual pneumothorax. 2. Left lower lung zone trace pleural-parenchymal disease, unchanged. Kristian King MD on December 27, 2016 at 7:22 Board Certified Radiologist. This report was verified electronically.
--- NOTE | 2016-12-27 07:51 | MP ---
cc: MEE GUILLERMO MD DATE OF SURGERY: 12/24/2016 PREOPERATIVE DIAGNOSIS Trauma to the left chest, large left hemothorax. POSTOPERATIVE DIAGNOSIS Trauma to the left chest, large left hemothorax. PROCEDURE Left chest tube placement (tube thoracostomy). SURGEON Love ANESTHESIA 1% Xylocaine. ESTIMATED BLOOD LOSS Minimal; obtained 1700 cc of old blood through the chest tube. INDICATION FOR PROCEDURE This pleasant gentleman fell off a ladder a few days ago. The patient was admitted to the hospital and observed. Analgesia was administered and all the other measures. The patient apparently started getting short of breath yesterday and was transferred to ICU. Today's x-ray revealed opacification of the left chest. I ordered a CT scan which confirms a large hemothorax, hence the procedure. DETAILS OF PROCEDURE The patient was prepped and draped in the usual fashion. The area was infiltrated with 1% Xylocaine. An incision was made in the sixth intercostal space in the midaxillary line, deepened down, and with a hemostat the chest is entered. A 32-Tajik chest tube is placed in the posterior sulcus, sutured in place with 0 silk and connected to a Pleur-evac. Immediately 1700 cc of old thick purplish looking blood is obtained. The patient readily breathes better. A chest x-ray is obtained for confirmation. Mee HOWARD /6:35 PM /7:49 AM
[2016-12-27 08:00] VITALS: BP 113/75; PULSE 94; RESP 22; TEMP 95.5; O2SAT 95
[2016-12-27] MEDS: LIDOCAINE HCL 5% PATCH T-DERMAL SCH (08:50)
[2016-12-27] MEDS: FENOFIBRATE 48 MG TAB PO SCH (08:52)
[2016-12-27] MEDS: metFORMIN HCL 500 MG TAB PO SCH ×2 (08:52→17:51)
[2016-12-27] MEDS: GABAPENTIN 300 MG CAP PO SCH ×2 (08:52→19:51)
[2016-12-27] MEDS: PANTOPRAZOLE SOD 40 MG DELAYED RELEASE TAB PO SCH (08:52)
[2016-12-27] MEDS: DOCUSATE SODIUM 100 MG CAP PO SCH ×2 (08:52→19:51)
[2016-12-27] MEDS: QUEtiapine FUMARATE 200 MG TAB PO SCH ×2 (08:53→19:51)
[2016-12-27] MEDS: lamoTRIgine 100 MG TAB PO SCH ×2 (08:53→19:51)
[2016-12-27] MEDS: FLUoxetine HCL 20 MG CAP PO SCH (08:53)
[2016-12-27] MEDS: LACTULOSE SYRUP 20 GM/30 ML CUP PO SCH (08:54)
[2016-12-27] MEDS: FLUTICASONE PROPIONATE 50 MCG/ACT 16 GM NASAL SPRAY NASAL SCH ×2 (08:58→19:52)
[2016-12-27] MEDS: BACITRACIN TOP OINT 15 GM TUBE TOP SCH ×2 (09:00→19:52)
[2016-12-27 09:30] VITALS: O2SAT 99
[2016-12-27 12:00] VITALS: BP 130/61; PULSE 102; RESP 20; TEMP 98.2; O2SAT 95
[2016-12-27] MEDS: LORazepam 1 MG TAB PO PRN (12:38)
--- NOTE | 2016-12-27 12:40 | HHI.PR ---
Subjective Subjective Notes PTD: 8 Patient out of bed sitting in a recliner chair. Sister at bedside. Patient states, "my back feels like it's practically broken." Patient is on simple face mask at 6 L. Sats equal 99%. Decrease to 4 L nasal cannula, and sats decreased quickly to 88-89%. Replaced to 6 L simple face mask, and sats slowly increased to 94-95%. Objective Vitals/I&O Vital Signs Date Time Temp Pulse Resp B/P Pulse Ox O2 Delivery O2 Flow Rate FiO2 12/27/16 11:21 19 12/27/16 09:30 99 Simple Mask 6.00 12/27/16 08:00 95.5 94 113/75 Labs Laboratory Tests Test 12/26/16 12/27/16 14:19 04:01 Hemoglobin 7.3 7.6 Hematocrit 22.4 23.4 Radiology Last Impressions Chest X-Ray 12/27/16 0600 Signed Impressions: Service Date/Time: Tuesday, December 27, 2016 06:16 - CONCLUSION: 1. Stable left-sided chest tube with very subtle residual pneumothorax. 2. Left lower lung zone trace pleural-parenchymal disease, unchanged. Kristian King MD Consultation 12/24/16 0000 Signed Impressions: Service Date/Time: Saturday, December 24, 2016 00:00 - CONCLUSION: I have discussed the case with doctor Dr Aroldo Vera MD FACR Chest CT 12/24/16 0000 Signed Impressions: Service Date/Time: Saturday, December 24, 2016 11:19 - CONCLUSION: Increasing large left pleural effusion. Significant consolidative changes are evident as well. Aroldo Vera MD FACR Head CT 12/22/16 0000 Signed Impressions: Service Date/Time: Thursday, December 22, 2016 12:51 - CONCLUSION: 1. No acute intracranial abnormality. Derick Vera MD Pelvis X-Ray 12/19/16 1518 Signed Impressions: Service Date/Time: Monday, December 19, 2016 15:21 - CONCLUSION: Intact pelvis. Giovanni Pradhan MD Cervical Spine CT 12/19/16 1518 Signed Impressions: Service Date/Time: Monday, December 19, 2016 16:42 - CONCLUSION: No fracture or subluxation of the cervical spine. Degenerative changes at C5/C6 and C6/C7 as above. Giovanni Pradhan MD Abdomen/Pelvis CT 12/19/16 1518 Signed Impressions: Service Date/Time: Monday, December 19, 2016 16:51 - CONCLUSION: No evidence of acute trauma of the abdomen or pelvis. Enlarged and mild fatty infiltrated liver. Giovanni Pradhan MD Narrative Exam GENERAL: This is a 56-year-old male out of bed in a recliner chair. No distress noted. SKIN: Warm and dry. HEAD: Atraumatic. Normocephalic. EYES: PERRLA. 2 mm bilaterally. ENT: No nasal bleeding or discharge. Mucous membranes pink and moist. NECK: Trachea midline. No JVD. CARDIOVASCULAR: Regular rate and rhythm. RESPIRATORY: Patient is on a simple mask. Sats equal 99%. Lungs are clear to auscultation Breath sounds equal bilaterally. No distress or dyspnea. Left chest tube in place to Pleur-evac drainage system to water seal. GASTROINTESTINAL: BS + x 4 quads. Abdomen large, non-tender, however distended. (Patient does not feel he is distended, and states this is the size is abdomen always is) MUSCULOSKELETAL: Extremities without cyanosis, or edema. + peripheral pulses x 4 extremities. Warm with good capillary refill and sensation. MAEW. NEUROLOGICAL: Awake and alert. Normal speech and pattern. A/P Problem List: (1) Fall from ladder (2) Pulmonary contusion (3) Multiple rib fractures Assessment and Plan [place]: This is a 56-year-old male who fell approximately 13 feet from a ladder. He was cutting branches and the branch fell and knocked the ladder out from underneath him. He landed on his chest, on a tree stump. He was ambulatory at the scene. He walked himself to his car. No LOC. And hypoxic and confused last week, and was transferred to [facility] for closer monitoring. He eventually developed a retained hemothorax. He went to IR for chest tube placement. He progressed well, and was transferred back to the [facility] floor. PMHx: Psych. - Bipolar. anxiety. DM. INJURIES: LEFT rib fx (5-9) LEFT lung contusion * Mild fatty liver Procedures: 12/24: Left chest tube placed in IR for hemothorax - 1600 mL out Consults: CCM. Psychiatry. IR. Diet: 2000 gretchen ADA diet. Tolerating po diet. Encourage good po intake with each meal. Pulmonary: Encourage good pulmonary toileting. IS at bedside and pt encouraged to use. Rationale for use explained to patient, and verbalized understanding. EZpap. and nebs. AM chest x-ray - shows stable left residual PTX. Otherwise unchanged and stable Follow-up labs and chest x-ray in the morning. Psychiatry - assist with psych medication management PAIN Management: Percocet 5-10 mg. Dilaudid 1 mgq2h. Robaxin 500 mg q8h. Neurontin. Fentanyl patch. Added Tylenol IV 2 doses. Added Motrin 400 every 6 for continued complaints of pain. Activity: OOB. PT ordered. Encourage out of bed 3-4 times a day. Encourage ambulation in the hallway. GI prophylaxis: Protonix po. Bowel regimen: Colace and MOM. Lactulose. LBM: 12/26 DVT prophylaxis: Mechanical VTE with SCDs. Chemical management Lovenox 30 mg BID. DC Planning: Case management consulted for assistance with final discharge disposition. Emotional support provided to patient and sister at bedside and plan of care discussed. Discussed with RN at bedside. Patient is hemodynamically stable and being managed on the med/surg floor. Left rib fractures Left lung contusion Large left hemothorax Supportive care Oxygen as needed to maintain O2 sats Aggressive pulmonary toileting IS, a cappella, EZpap. Patient again instructed in the importance of these exercises to prevent pneumonia. CDB. Pain management - Percocet. Dilaudid. Robaxin. Neurontin. Fentanyl patch. Lidoderm patch. Added Tylenol IV. Motrin 400. Patient still remains very painful. Left chest tube in place to Pleur-evac drainage system. CT output =150 mL PT ordered. Encouraged out of bed 3-4 times a day. Encourage ambulation in the hallway. Follow-up labs and chest x-ray in the morning. Bipolar/anxiety disorder Home medications resumed Psychiatry to assist in management and care - especially medication management Dr. Teran - ordered home dose of Seroquel 800 mg BID. Trazodone 100 mg hs Ativan 1 mg q6. Prozac 60 daily Neurontin 300 BID. Lamictal 150 mg BID Vistaril 100 QID PRN agitation Attending Statement patient seen at bedside as above Attestation The exam, history, and the medical decision-making described in the above note were completed with the assistance of the mid-level provider. I reviewed and agree with the findings presented. I attest that I had a [id number] encounter with the patient on the same day, and personally performed and documented my assessment and findings in the medical record. Problem Qualifiers (1) Fall from ladder: Qualified Code: W11.XXXA - Fall from ladder, initial encounter (2) Pulmonary contusion: Qualified Code: S27.321A - Contusion of left lung, initial encounter (3) Multiple rib fractures: Qualified Code: S22.42XA - Closed fracture of multiple ribs of left side, initial encounter Pam Carcamo Dec 27, 2016 12:40 Nahum Jordan MD Jan 04, 2017 22:38
[2016-12-27] MEDS ORDERED: NALOXONE HCL 0.4 MG/ML AMP IV PRN (15:00)
[2016-12-27] MEDS: ACETAMINOPHEN 1000 MG/100 ML VIAL IV SCH ×2 (15:46→19:52)
[2016-12-27 16:00] VITALS: BP 118/64; PULSE 106; RESP 22; TEMP 96.7; O2SAT 98
[2016-12-27] MEDS: MAGNESIUM HYDROXIDE SUSP 30 ML CUP PO SCH (19:51)
[2016-12-27 20:00] VITALS: BP 123/77; PULSE 94; RESP 18; TEMP 97.8; O2SAT 98
[2016-12-28] VITALS (7 sets, daily range): BP systolic 96–120; BP diastolic 56–69; PULSE 92–96; RESP 18–20; TEMP 96.7–98.5; O2SAT 95–99
[2016-12-28] MEDS: ENOXAPARIN SODIUM 30 MG/0.3 ML SYRINGE SQ SCH ×3 (01:07→23:10)
[2016-12-28] MEDS: HYDROmorphone HCL PF 1 MG/ML VIAL IVP PRN ×5 (01:08→23:11)
[2016-12-28] MEDS: oxyCODONE/ACETAMINOPHEN 5 MG/325 MG TAB PO PRN ×2 (02:09→08:21)
[2016-12-28] MEDS: METHOCARBAMOL 500 MG TAB PO SCH ×3 (05:37→20:36)
[2016-12-28 05:38] LABS: AUTOMATED NEUTROPHIL # 3.8 TH/MM3 (1.8-7.7); BASOPHIL % 0.3 % (0.0-2.0); EOSINOPHIL # 0.4 TH/MM3 (0-0.4); EOSINOPHIL % 5.6 % (0.0-4.0); HEMATOCRIT 23.4 % (39.0-51.0); LYMPH % 25.4 % (9.0-44.0); LYMPHOCYTE # 1.6 TH/MM3 (1.0-4.8); MEAN CELL VOLUME 81.2 FL (80.0-100.0); MEAN CORPUSCULAR HEMOGLOBIN 26.6 PG (27.0-34.0); MEAN CORPUSCULAR HGB CONC 32.7 % (32.0-36.0); MONO % 10.1 % (0.0-8.0); NEUT % 58.6 % (16.0-70.0); PLATELET COUNT 358 TH/MM3 (150-450); RED BLOOD COUNT 2.88 MIL/MM3 (4.50-5.90); RED CELL DISTRIBUTION WIDTH 14.2 % (11.6-17.2); WHITE BLOOD COUNT 6.4 TH/MM3 (4.0-11.0)
[2016-12-28 05:41] LABS: HEMO FLAGS AUTO DIFF
[2016-12-28 06:00] LABS: ALT (GPT) 79 U/L (12-78); ANION GAP 6 MEQ/L (5-15); AST (GOT) 34 U/L (15-37); BICARBONATE 32.4 MEQ/L (21.0-32.0); BLOOD UREA NITROGEN 10 MG/DL (7-18); CHLORIDE 102 MEQ/L (98-107); GLOMERULAR FILTRATION RATE 128 ML/MIN (>89); MAGNESIUM 1.7 MG/DL (1.5-2.5); POTASSIUM 4.3 MEQ/L (3.5-5.1); SODIUM (NA) 140 MEQ/L (136-145)
[2016-12-28 06:01] LABS: ALKALINE PHOSPHATASE 179 U/L (45-117); TOTAL BILIRUBIN ADULT 0.2 MG/DL (0.2-1.0)
[2016-12-28] MEDS: INSULIN NovoLIN REGULAR SUPPLEMENTAL SCALE SQ SCH ×4 (06:12→20:42)
--- NOTE | 2016-12-28 06:39 | RADRPT ---
EXAM DATE/TIME: 12/28/2016 06:16 [facility] COMPARISON: CHEST SINGLE AP, December 27, 2016, 6:16. INDICATIONS : Respiratory distress. MEDICAL HISTORY : Cardiovascular disease. SURGICAL HISTORY : None. ENCOUNTER: Subsequent ACUITY: 1 week PAIN SCORE: Non-responsive. LOCATION: Bilateral chest FINDINGS: Left rib fractures are again noted. Left chest tube remains in place. A tiny left lateral pneumothora x is again suspected. There is basilar consolidation and small effusion at the left lung base, not si gnificantly change. Right lung remains clear. CONCLUSION: No change tiny lateral pneumothorax and basilar consolidation/effusion on the left. Left chest tube r emains in place. Giovanni Pradhan MD on December 28, 2016 at 6:36 Board Certified Radiologist. This report was verified electronically.
[2016-12-28 07:55] LABS: SCAN/DIFF AUTO DIFF CONFIRMED
[2016-12-28] MEDS: QUEtiapine FUMARATE 200 MG TAB PO SCH ×2 (08:21→20:36)
[2016-12-28] MEDS: FENOFIBRATE 48 MG TAB PO SCH (08:21)
[2016-12-28] MEDS: GABAPENTIN 300 MG CAP PO SCH ×2 (08:21→20:36)
[2016-12-28] MEDS: lamoTRIgine 100 MG TAB PO SCH ×2 (08:22→20:36)
[2016-12-28] MEDS: LACTULOSE SYRUP 20 GM/30 ML CUP PO SCH (08:22)
[2016-12-28] MEDS: DOCUSATE SODIUM 100 MG CAP PO SCH ×2 (08:22→20:36)
[2016-12-28] MEDS: PANTOPRAZOLE SOD 40 MG DELAYED RELEASE TAB PO SCH (08:22)
[2016-12-28] MEDS: metFORMIN HCL 500 MG TAB PO SCH ×2 (08:23→17:03)
[2016-12-28] MEDS: FLUoxetine HCL 20 MG CAP PO SCH (08:23)
[2016-12-28] MEDS: FLUTICASONE PROPIONATE 50 MCG/ACT 16 GM NASAL SPRAY NASAL SCH ×2 (08:24→20:35)
[2016-12-28] MEDS: LIDOCAINE HCL 5% PATCH T-DERMAL SCH (08:24)
[2016-12-28] MEDS: BACITRACIN TOP OINT 15 GM TUBE TOP SCH ×2 (08:28→20:36)
--- NOTE | 2016-12-28 11:07 | HHI.PR ---
Subjective Subjective Notes PTD: 9 Patient fell out of bed and sitting in a chair. Sister at bedside. He has been out of bed with PT today. He complains of, "so much pain." "I need something else. I am immune to Percocet because I take it on the outside." "I feel like I have broken my back." Objective Vitals/I&O Vital Signs Date Time Temp Pulse Resp B/P Pulse Ox O2 Delivery O2 Flow Rate FiO2 12/28/16 08:00 96.7 92 18 96/61 98 103/56 12/27/16 19:50 Simple Mask 6.00 Labs Laboratory Tests Test 12/28/16 05:06 White Blood Count 6.4 Red Blood Count 2.88 Hemoglobin 7.7 Hematocrit 23.4 Mean Corpuscular Volume 81.2 Mean Corpuscular Hemoglobin 26.6 Mean Corpuscular Hemoglobin 32.7 Concent Red Cell Distribution Width 14.2 Platelet Count 358 Mean Platelet Volume 6.2 Neutrophils (%) (Auto) 58.6 Lymphocytes (%) (Auto) 25.4 Monocytes (%) (Auto) 10.1 Eosinophils (%) (Auto) 5.6 Basophils (%) (Auto) 0.3 Neutrophils # (Auto) 3.8 Lymphocytes # (Auto) 1.6 Monocytes # (Auto) 0.6 Eosinophils # (Auto) 0.4 Basophils # (Auto) 0.0 CBC Comment AUTO DIFF Differential Comment AUTO DIFF CONFIRMED Sodium Level 140 Potassium Level 4.3 Chloride Level 102 Carbon Dioxide Level 32.4 Anion Gap 6 Blood Urea Nitrogen 10 Creatinine 0.65 Estimat Glomerular Filtration 128 Rate Random Glucose 102 Calcium Level 8.9 Magnesium Level 1.7 Total Bilirubin 0.2 Aspartate Amino Transf 34 (AST/SGOT) Alanine Aminotransferase 79 (ALT/SGPT) Alkaline Phosphatase 179 Total Protein 6.4 Albumin 2.8 Radiology Last Impressions Chest X-Ray 12/28/16 0600 Signed Impressions: Service Date/Time: Wednesday, December 28, 2016 06:16 - CONCLUSION: No change tiny lateral pneumothorax and basilar consolidation/effusion on the left. Left chest tube remains in place. Giovanni Pradhan MD Consultation 12/24/16 0000 Signed Impressions: Service Date/Time: Saturday, December 24, 2016 00:00 - CONCLUSION: I have discussed the case with doctor Dr Aroldo Vera MD FACR Chest CT 12/24/16 0000 Signed Impressions: Service Date/Time: Saturday, December 24, 2016 11:19 - CONCLUSION: Increasing large left pleural effusion. Significant consolidative changes are evident as well. Aroldo Vera MD FACR Head CT 12/22/16 0000 Signed Impressions: Service Date/Time: Thursday, December 22, 2016 12:51 - CONCLUSION: 1. No acute intracranial abnormality. Derick Vera MD Pelvis X-Ray 12/19/16 1518 Signed Impressions: Service Date/Time: Monday, December 19, 2016 15:21 - CONCLUSION: Intact pelvis. Giovanni Pradhan MD Cervical Spine CT 12/19/16 1518 Signed Impressions: Service Date/Time: Monday, December 19, 2016 16:42 - CONCLUSION: No fracture or subluxation of the cervical spine. Degenerative changes at C5/C6 and C6/C7 as above. Giovanni Pradhan MD Abdomen/Pelvis CT 12/19/16 1518 Signed Impressions: Service Date/Time: Monday, December 19, 2016 16:51 - CONCLUSION: No evidence of acute trauma of the abdomen or pelvis. Enlarged and mild fatty infiltrated liver. Giovanni Pradhan MD Narrative Exam GENERAL: This is a 56-year-old male out of bed in a recliner chair. No distress noted. SKIN: Warm and dry. HEAD: Atraumatic. Normocephalic. EYES: PERRLA. 2 mm bilaterally. ENT: No nasal bleeding or discharge. Mucous membranes pink and moist. NECK: Trachea midline. No JVD. CARDIOVASCULAR: Regular rate and rhythm. RESPIRATORY: Patient is on a simple mask. Sats equal 97-98%. Lungs are clear to auscultation Breath sounds equal bilaterally. No distress or dyspnea. Left chest tube in place to Pleur-evac drainage system to water seal. GASTROINTESTINAL: BS + x 4 quads. Abdomen large, non-tender, however distended. (Patient does not feel he is distended, and states this is the size is abdomen always is) MUSCULOSKELETAL: Extremities without cyanosis, or edema. + peripheral pulses x 4 extremities. Warm with good capillary refill and sensation. MAEW. NEUROLOGICAL: Awake and alert. Normal speech and pattern. A/P Problem List: (1) Fall from ladder (2) Pulmonary contusion (3) Multiple rib fractures Assessment and Plan [place]: This is a 56-year-old male who fell approximately 13 feet from a ladder. He was cutting branches and the branch fell and knocked the ladder out from underneath him. He landed on his chest, on a tree stump. He was ambulatory at the scene. He walked himself to his car. No LOC. And hypoxic and confused last week, and was transferred to [facility] for closer monitoring. He eventually developed a retained hemothorax. He went to IR for chest tube placement. He progressed well, and was transferred back to the [facility] floor. PMHx: Psych. - Bipolar. anxiety. DM. INJURIES: LEFT rib fx (5-9) LEFT lung contusion * Mild fatty liver Procedures: 12/24: Left chest tube placed in IR for hemothorax - 1600 mL out Consults: CCM. Psychiatry. IR. Diet: 2000 gretchen ADA diet. Tolerating po diet. Encourage good po intake with each meal. Pulmonary: Encourage good pulmonary toileting. IS at bedside and pt encouraged to use. Rationale for use explained to patient, and verbalized understanding. EZpap. and nebs. AM chest x-ray - shows stable left residual PTX. Left basilar consolidation. Return chest tube to 20 cm suction. Follow-up labs and chest x-ray in the morning. PAIN Management: DC Percocet (patient states that it is not working. ) Added Dilaudid by mouth. Dilaudid 1 mg q2h. Added fentanyl patch Robaxin 500 mg q8h. Neurontin. Motrin 400 every 6. Activity: OOB. PT and OT ordered. Encourage out of bed 3-4 times a day. Encourage ambulation in the hallway. GI prophylaxis: Protonix po. Bowel regimen: Colace and MOM. Lactulose. LBM: 12/27 DVT prophylaxis: Mechanical VTE with SCDs. Chemical management Lovenox 30 mg BID. DC Planning: Case management consulted for assistance with final discharge disposition. Emotional support provided to patient and sister at bedside and plan of care discussed. Discussed with RN at bedside. Patient is hemodynamically stable and being managed on the med/surg floor. Left rib fractures Left lung contusion Large left hemothorax Supportive care Oxygen as needed to maintain O2 sats Patient is on a simple facemask at 6 L. Sats equal 97-98%. Aggressive pulmonary toileting IS, a cappella, EZpap. Patient again instructed in the importance of these exercises to prevent pneumonia. CDB. Pain management - Dilaudid po and IV. Robaxin. Neurontin. Added Fentanyl patch. Lidoderm patch. Motrin 400. Left chest tube in place to Pleur-evac drainage system - return to 20 of suction based on small stable PTX. CT output =195 mL PT ordered. Encouraged out of bed 3-4 times a day. Encourage ambulation in the hallway. Follow-up labs and chest x-ray in the morning. Bipolar/anxiety disorder Home medications resumed Psychiatry to assist in management and care - especially medication management Dr. Teran - ordered home dose of Seroquel 800 mg BID. Trazodone 100 mg hs Ativan 1 mg q6. Prozac 60 daily Neurontin 300 BID. Lamictal 150 mg BID Vistaril 100 QID PRN agitation The exam, history, and the medical decision-making described in the above note were completed with the assistance of the mid-level provider. I reviewed and agree with the findings presented. I attest that I had a [id number] encounter with the patient on the same day, and personally performed and documented my assessment and findings in the medical record. Problem Qualifiers (1) Fall from ladder: Qualified Code: W11.XXXA - Fall from ladder, initial encounter (2) Pulmonary contusion: Qualified Code: S27.321A - Contusion of left lung, initial encounter (3) Multiple rib fractures: Qualified Code: S22.42XA - Closed fracture of multiple ribs of left side, initial encounter Pam Carcamo Dec 28, 2016 11:07 William Giang MD Jan 04, 2017 12:40
[2016-12-28] MEDS: fentaNYL 25 MCG/HR PATCH T-DERMAL SCH (14:59)
[2016-12-28] MEDS: HYDROmorphone HCL 2 MG TAB PO PRN ×2 (17:03→20:55)
[2016-12-28] MEDS: RESP: ALBUTEROL 2.5 MG/IPRATROPIUM 0.5 MG NEB (PRN) NEB (20:34)
[2016-12-28] MEDS: MAGNESIUM HYDROXIDE SUSP 30 ML CUP PO SCH (20:36)
[2016-12-29] VITALS: BP 122/73; PULSE 95; RESP 20; TEMP 97.7; O2SAT 99
[2016-12-29] MEDS: HYDROmorphone HCL 2 MG TAB PO PRN ×4 (04:56→17:43)
[2016-12-29] MEDS: INSULIN NovoLIN REGULAR SUPPLEMENTAL SCALE SQ SCH ×4 (04:56→21:00)
[2016-12-29] MEDS: METHOCARBAMOL 500 MG TAB PO SCH ×3 (04:56→21:21)
[2016-12-29 05:03] LABS: AUTOMATED NEUTROPHIL # 4.2 TH/MM3 (1.8-7.7); BASOPHIL % 0.2 % (0.0-2.0); EOSINOPHIL # 0.4 TH/MM3 (0-0.4); EOSINOPHIL % 5.3 % (0.0-4.0); HEMATOCRIT 25.2 % (39.0-51.0); LYMPH % 25.1 % (9.0-44.0); LYMPHOCYTE # 1.7 TH/MM3 (1.0-4.8); MEAN CELL VOLUME 81.2 FL (80.0-100.0); MEAN CORPUSCULAR HEMOGLOBIN 26.5 PG (27.0-34.0); MEAN CORPUSCULAR HGB CONC 32.6 % (32.0-36.0); MONO % 7.9 % (0.0-8.0); NEUT % 61.5 % (16.0-70.0); PLATELET COUNT 484 TH/MM3 (150-450); RED CELL DISTRIBUTION WIDTH 14.6 % (11.6-17.2); WHITE BLOOD COUNT 6.8 TH/MM3 (4.0-11.0)
[2016-12-29 05:07] LABS: HEMO FLAGS AUTO DIFF
[2016-12-29 05:32] LABS: ANION GAP 6 MEQ/L (5-15); AST (GOT) 23 U/L (15-37); BICARBONATE 33.8 MEQ/L (21.0-32.0); BLOOD UREA NITROGEN 8 MG/DL (7-18); CHLORIDE 100 MEQ/L (98-107); GLOMERULAR FILTRATION RATE 123 ML/MIN (>89); MAGNESIUM 1.9 MG/DL (1.5-2.5); POTASSIUM 4.1 MEQ/L (3.5-5.1); SODIUM (NA) 140 MEQ/L (136-145)
[2016-12-29 05:33] LABS: ALT (GPT) 67 U/L (12-78)
[2016-12-29 05:35] LABS: ALKALINE PHOSPHATASE 186 U/L (45-117); TOTAL BILIRUBIN ADULT 0.2 MG/DL (0.2-1.0)
[2016-12-29 08:00] VITALS: BP 104/69; PULSE 85; RESP 20; TEMP 97.1; O2SAT 95
--- NOTE | 2016-12-29 08:24 | RADRPT ---
EXAM DATE/TIME: 12/29/2016 07:14 [facility] COMPARISON: CHEST SINGLE AP, December 28, 2016, 6:16. INDICATIONS : Chest and abdomen pain left side. MEDICAL HISTORY : Pt. fell 20 feet from ladder. Left chest tube. SURGICAL HISTORY : None. ENCOUNTER: Subsequent ACUITY: 2 weeks PAIN SCORE: 10/10 LOCATION: Left chest FINDINGS: There is a stable left-sided chest tube in place. The previously noted trace lateral pneumothorax is not well-demonstrated on the current exam. There is no significant pneumothorax noted. Redemonstratio n of left lower lobe airspace consolidation and associated pleural effusion and left-sided rib fractu res. Cardiomediastinal contours are stable. Remainder of the exam is unchanged. CONCLUSION: 1. Stable left-sided chest tube with no significant pneumothorax. 2. Stable lower lobe air space consolidation and small left pleural effusion. Kristian King MD on December 29, 2016 at 8:19 Board Certified Radiologist. This report was verified electronically.
[2016-12-29 08:25] LABS: OVALOCYTES 1+ (NORMAL); PLATELET ESTIMATE SMEAR HIGH (NORMAL); PLATELET MORPHOLOGY NORMAL (NORMAL); POLYCHROMASIA 2.1 % (0.0-1.9); SCAN/DIFF AUTO DIFF CONFIRMED
[2016-12-29] MEDS: BACITRACIN TOP OINT 15 GM TUBE TOP SCH ×2 (09:00→21:00)
[2016-12-29] MEDS: DOCUSATE SODIUM 100 MG CAP PO SCH ×2 (09:00→21:22)
[2016-12-29] MEDS: QUEtiapine FUMARATE 200 MG TAB PO SCH ×2 (09:01→21:29)
[2016-12-29] MEDS: FENOFIBRATE 48 MG TAB PO SCH (09:01)
[2016-12-29] MEDS: GABAPENTIN 300 MG CAP PO SCH ×2 (09:01→21:22)
[2016-12-29] MEDS: lamoTRIgine 100 MG TAB PO SCH ×2 (09:03→21:20)
[2016-12-29] MEDS: LACTULOSE SYRUP 20 GM/30 ML CUP PO SCH (09:03)
[2016-12-29] MEDS: FLUoxetine HCL 20 MG CAP PO SCH (09:03)
[2016-12-29] MEDS: metFORMIN HCL 500 MG TAB PO SCH ×2 (09:04→17:42)
[2016-12-29] MEDS: PANTOPRAZOLE SOD 40 MG DELAYED RELEASE TAB PO SCH (09:04)
[2016-12-29] MEDS: FLUTICASONE PROPIONATE 50 MCG/ACT 16 GM NASAL SPRAY NASAL SCH ×2 (09:04→21:23)
[2016-12-29] MEDS: LIDOCAINE HCL 5% PATCH T-DERMAL SCH (09:04)
--- NOTE | 2016-12-29 11:13 | HHI.PR ---
Subjective Subjective Notes PTD: 10 Patient states his pain is no better after medication change yesterday. "It hurts when I breathe. My lungs were filling up yesterday, and I felt like I was drowning." "I'm not abusing the medication or anything. It's just the injection works best , but it only lasted a short time." Objective Vitals/I&O Vital Signs Date Time Temp Pulse Resp B/P Pulse Ox O2 Delivery O2 Flow Rate FiO2 12/29/16 08:00 97.1 85 20 104/69 95 12/28/16 20:35 Simple Mask 8.00 Labs Laboratory Tests Test 12/29/16 04:30 White Blood Count 6.8 Red Blood Count 3.10 Hemoglobin 8.2 Hematocrit 25.2 Mean Corpuscular Volume 81.2 Mean Corpuscular Hemoglobin 26.5 Mean Corpuscular Hemoglobin 32.6 Concent Red Cell Distribution Width 14.6 Platelet Count 484 Mean Platelet Volume 6.0 Neutrophils (%) (Auto) 61.5 Lymphocytes (%) (Auto) 25.1 Monocytes (%) (Auto) 7.9 Eosinophils (%) (Auto) 5.3 Basophils (%) (Auto) 0.2 Neutrophils # (Auto) 4.2 Lymphocytes # (Auto) 1.7 Monocytes # (Auto) 0.5 Eosinophils # (Auto) 0.4 Basophils # (Auto) 0.0 CBC Comment AUTO DIFF Differential Comment AUTO DIFF CONFIRMED Platelet Estimate HIGH Platelet Morphology Comment NORMAL Polychromasia 2.1 Ovalocytes 1+ Sodium Level 140 Potassium Level 4.1 Chloride Level 100 Carbon Dioxide Level 33.8 Anion Gap 6 Blood Urea Nitrogen 8 Creatinine 0.67 Estimat Glomerular Filtration 123 Rate Random Glucose 97 Calcium Level 8.9 Magnesium Level 1.9 Total Bilirubin 0.2 Aspartate Amino Transf 23 (AST/SGOT) Alanine Aminotransferase 67 (ALT/SGPT) Alkaline Phosphatase 186 Total Protein 6.7 Albumin 3.0 Radiology Last Impressions Chest X-Ray 12/29/16 0600 Signed Impressions: Service Date/Time: Thursday, December 29, 2016 07:14 - CONCLUSION: 1. Stable left-sided chest tube with no significant pneumothorax. 2. Stable lower lobe air space consolidation and small left pleural effusion. Kristian King MD Consultation 12/24/16 0000 Signed Impressions: Service Date/Time: Saturday, December 24, 2016 00:00 - CONCLUSION: I have discussed the case with doctor Dr Arolod Vera MD FACR Chest CT 12/24/16 0000 Signed Impressions: Service Date/Time: Saturday, December 24, 2016 11:19 - CONCLUSION: Increasing large left pleural effusion. Significant consolidative changes are evident as well. Aroldo Vera MD FACR Head CT 12/22/16 0000 Signed Impressions: Service Date/Time: Thursday, December 22, 2016 12:51 - CONCLUSION: 1. No acute intracranial abnormality. Derick Vera MD Pelvis X-Ray 12/19/16 1518 Signed Impressions: Service Date/Time: Monday, December 19, 2016 15:21 - CONCLUSION: Intact pelvis. Giovanni Pradhan MD Cervical Spine CT 12/19/16 1518 Signed Impressions: Service Date/Time: Monday, December 19, 2016 16:42 - CONCLUSION: No fracture or subluxation of the cervical spine. Degenerative changes at C5/C6 and C6/C7 as above. Giovanni Pradhan MD Abdomen/Pelvis CT 12/19/16 1518 Signed Impressions: Service Date/Time: Monday, December 19, 2016 16:51 - CONCLUSION: No evidence of acute trauma of the abdomen or pelvis. Enlarged and mild fatty infiltrated liver. Giovanni Pradhan MD Narrative Exam GENERAL: This is a 56-year-old male out of bed in a recliner chair. No distress noted. SKIN: Warm and dry. HEAD: Atraumatic. Normocephalic. EYES: PERRLA. 2 mm bilaterally. ENT: No nasal bleeding or discharge. Mucous membranes pink and moist. NECK: Trachea midline. No JVD. CARDIOVASCULAR: Regular rate and rhythm. RESPIRATORY: Patient is on a simple mask. Sats equal 95-96%. Lungs are clear to auscultation, but slightly decreased to LEFT lower lung. Breath sounds equal bilaterally. No distress or dyspnea. Left chest tube in place to Pleur- evac drainage system to 20 cm suction GASTROINTESTINAL: BS + x 4 quads. Abdomen large, non-tender, however distended. MUSCULOSKELETAL: Extremities without cyanosis, or edema. + peripheral pulses x 4 extremities. Warm with good capillary refill and sensation. MAEW. NEUROLOGICAL: Awake and alert. Normal speech and pattern. A/P Problem List: (1) Fall from ladder (2) Pulmonary contusion (3) Multiple rib fractures Assessment and Plan [place]: This is a 56-year-old male who fell approximately 13 feet from a ladder. He was cutting branches and the branch fell and knocked the ladder out from underneath him. He landed on his chest, on a tree stump. He was ambulatory at the scene. He walked himself to his car. No LOC. And hypoxic and confused last week, and was transferred to [facility] for closer monitoring. He eventually developed a retained hemothorax. He went to IR for chest tube placement. He progressed well, and was transferred back to the [facility] floor. PMHx: Psych. - Bipolar. anxiety. DM. INJURIES: LEFT rib fx (5-9) LEFT lung contusion * Mild fatty liver Procedures: 12/24: Left chest tube placed in IR for hemothorax - 1600 mL out Consults: CCM. Psychiatry. IR. Diet: 2000 gretchen ADA diet. Tolerating po diet. Encourage good po intake with each meal. Pulmonary: Encourage good pulmonary toileting. IS at bedside and pt encouraged to use. Rationale for use explained to patient, and verbalized understanding. EZpap. and nebs. AM chest x-ray - shows no PTX. Stable small left pleural effusion. Follow-up labs and chest x-ray in the morning. PAIN Management: Dilaudid 2 mg q 4h po Dilaudid 1 mg q2h. Fentanyl patch. Robaxin 500 mg q8h. Neurontin. Motrin 400 every 6. Activity: OOB. PT and OT ordered. Encourage out of bed 3-4 times a day. Encourage ambulation in the hallway. GI prophylaxis: Protonix po. Bowel regimen: Colace and MOM. Lactulose. LBM: 12/29 DVT prophylaxis: Mechanical VTE with SCDs. Chemical management Lovenox 30 mg BID. DC Planning: Case management consulted for assistance with final discharge disposition. We'll most likely need O2 on discharge. Emotional support provided to patient and sister at bedside and plan of care discussed. Discussed with RN at bedside. Patient is hemodynamically stable and being managed on the med/surg floor. Left rib fractures Left lung contusion Large left hemothorax Supportive care Oxygen as needed to maintain O2 sats Patient is on a simple facemask at 6 L. Sats equal 95-96%. Aggressive pulmonary toileting IS, a cappella, EZpap. Patient again instructed in the importance of these exercises to prevent pneumonia. CDB. Pain management - Dilaudid po and IV. Robaxin. Neurontin. Added Fentanyl patch. Lidoderm patch. Motrin 400. Left chest tube in place to Pleur-evac drainage system [address] output =110 mL PT ordered. Encouraged out of bed 3-4 times a day. Encourage ambulation in the hallway. Follow-up chest x-ray in the morning. Bipolar/anxiety disorder Home medications resumed Psychiatry to assist in management and care - especially medication management Dr. Teran - ordered home dose of Seroquel 800 mg BID. Trazodone 100 mg hs Ativan 1 mg q6. Prozac 60 daily Neurontin 300 BID. Lamictal 150 mg BID Vistaril 100 QID PRN agitation The exam, history, and the medical decision-making described in the above note were completed with the assistance of the mid-level provider. I reviewed and agree with the findings presented. I attest that I had a [id number] encounter with the patient on the same day, and personally performed and documented my assessment and findings in the medical record. Problem Qualifiers (1) Fall from ladder: Qualified Code: W11.XXXA - Fall from ladder, initial encounter (2) Pulmonary contusion: Qualified Code: S27.321A - Contusion of left lung, initial encounter (3) Multiple rib fractures: Qualified Code: S22.42XA - Closed fracture of multiple ribs of left side, initial encounter Pam Carcamo Dec 29, 2016 11:13 William Giang MD Jan 04, 2017 12:48
[2016-12-29 12:00] VITALS: BP 110/84; PULSE 95; RESP 20; TEMP 98.3; O2SAT 95
[2016-12-29] MEDS: RESP: ALBUTEROL 2.5 MG/IPRATROPIUM 0.5 MG NEB (PRN) NEB (12:52)
[2016-12-29] MEDS: ENOXAPARIN SODIUM 30 MG/0.3 ML SYRINGE SQ SCH (13:33)
[2016-12-29] MEDS: LORazepam 1 MG TAB PO PRN ×3 (14:46→21:34)
[2016-12-29] MEDS: HYDROmorphone HCL PF 1 MG/ML VIAL IVP PRN ×2 (15:33→21:29)
[2016-12-29 16:00] VITALS: BP 115/52; PULSE 96; RESP 19; TEMP 97.2; O2SAT 99
[2016-12-29 20:23] VITALS: BP 129/74; PULSE 88; RESP 18; TEMP 96.6; O2SAT 96
[2016-12-29] MEDS: MAGNESIUM HYDROXIDE SUSP 30 ML CUP PO SCH (21:22)
[2016-12-29] MEDS: SODIUM CHLORIDE 0.9% FLUSH 10 ML FLUSH IV FLUSH PRN (21:30)
[2016-12-30 00:15] VITALS: BP 99/60; PULSE 89; RESP 18; TEMP 97.6; O2SAT 94
[2016-12-30] MEDS: ENOXAPARIN SODIUM 30 MG/0.3 ML SYRINGE SQ SCH ×2 (03:10→12:26)
[2016-12-30] MEDS: HYDROmorphone HCL 2 MG TAB PO PRN ×4 (03:11→21:18)
--- NOTE | 2016-12-30 03:23 | RADRPT ---
EXAM DATE/TIME: 12/30/2016 02:07 [facility] COMPARISON: CHEST SINGLE AP, December 29, 2016, 7:14. CHEST SINGLE AP, December 28, 2016, 6:16. INDICATIONS : Short of breath. MEDICAL HISTORY : Cardiovascular disease. SURGICAL HISTORY : None. ENCOUNTER: Subsequent ACUITY: 2 weeks PAIN SCORE: Non-responsive. LOCATION: Bilateral chest FINDINGS: Left chest tube remains in place. Mild left base consolidation persists, not significantly changed. N o large effusion. No perceptible pneumothorax. Left rib fractures are again noted.CONCLUSION: Left rib fractures with basilar consolidation and a chest tube. No pneumothorax seen. Giovanni Pradhan MD on December 30, 2016 at 3:20 Board Certified Radiologist. This report was verified electronically.
[2016-12-30] MEDS: INSULIN NovoLIN REGULAR SUPPLEMENTAL SCALE SQ SCH ×4 (07:00→21:25)
[2016-12-30] MEDS: METHOCARBAMOL 500 MG TAB PO SCH ×3 (07:49→21:18)
[2016-12-30 08:00] VITALS: BP 103/68; PULSE 90; RESP 16; TEMP 97.4; O2SAT 93
[2016-12-30] MEDS: DOCUSATE SODIUM 100 MG CAP PO SCH ×2 (09:52→21:17)
[2016-12-30] MEDS: metFORMIN HCL 500 MG TAB PO SCH ×2 (09:52→17:52)
[2016-12-30] MEDS: PANTOPRAZOLE SOD 40 MG DELAYED RELEASE TAB PO SCH (09:52)
[2016-12-30] MEDS: GABAPENTIN 300 MG CAP PO SCH ×2 (09:52→21:18)
[2016-12-30] MEDS: FLUoxetine HCL 20 MG CAP PO SCH (09:52)
[2016-12-30] MEDS: lamoTRIgine 100 MG TAB PO SCH ×2 (09:53→21:18)
[2016-12-30] MEDS: FENOFIBRATE 48 MG TAB PO SCH (09:53)
[2016-12-30] MEDS: QUEtiapine FUMARATE 200 MG TAB PO SCH ×2 (09:54→21:18)
[2016-12-30] MEDS: LACTULOSE SYRUP 20 GM/30 ML CUP PO SCH (09:55)
[2016-12-30] MEDS: FLUTICASONE PROPIONATE 50 MCG/ACT 16 GM NASAL SPRAY NASAL SCH ×2 (09:55→21:21)
[2016-12-30] MEDS: BACITRACIN TOP OINT 15 GM TUBE TOP SCH ×2 (09:56→21:00)
[2016-12-30] MEDS: LIDOCAINE HCL 5% PATCH T-DERMAL SCH (10:02)
--- NOTE | 2016-12-30 11:16 | HHI.PR ---
Subjective Subjective Notes PTD: 11 Patient states, "I am not the worst, but not the past." Patient found with his O2 off. Sats equal 88-89% on room air. Patient returned to 5 L nasal cannula and sats slowly increased to 92%. Patient states, "I was out of bed in the chair 'till 9:30, and that was a workout for me. I'm just all broken up inside." "I'm doing everything you told me to do." Objective Vitals/I&O Vital Signs Date Time Temp Pulse Resp B/P Pulse Ox O2 Delivery O2 Flow Rate FiO2 12/30/16 08:00 97.4 90 16 103/68 93 12/29/16 21:12 Nasal Cannula 6.00 Labs Laboratory Tests Test 12/29/16 04:30 White Blood Count 6.8 TH/MM3 Red Blood Count 3.10 MIL/MM3 Hemoglobin 8.2 GM/DL Hematocrit 25.2 % Mean Corpuscular Volume 81.2 FL Mean Corpuscular Hemoglobin 26.5 PG Mean Corpuscular Hemoglobin 32.6 % Concent Red Cell Distribution Width 14.6 % Platelet Count 484 TH/MM3 Mean Platelet Volume 6.0 FL Neutrophils (%) (Auto) 61.5 % Lymphocytes (%) (Auto) 25.1 % Monocytes (%) (Auto) 7.9 % Eosinophils (%) (Auto) 5.3 % Basophils (%) (Auto) 0.2 % Neutrophils # (Auto) 4.2 TH/MM3 Lymphocytes # (Auto) 1.7 TH/MM3 Monocytes # (Auto) 0.5 TH/MM3 Eosinophils # (Auto) 0.4 TH/MM3 Basophils # (Auto) 0.0 TH/MM3 CBC Comment AUTO DIFF Differential Comment AUTO DIFF CONFIRMED Platelet Estimate HIGH Platelet Morphology Comment NORMAL Polychromasia 2.1 % Ovalocytes 1+ Sodium Level 140 MEQ/L Potassium Level 4.1 MEQ/L Chloride Level 100 MEQ/L Carbon Dioxide Level 33.8 MEQ/L Anion Gap 6 MEQ/L Blood Urea Nitrogen 8 MG/DL Creatinine 0.67 MG/DL Estimat Glomerular Filtration 123 ML/MIN Rate Random Glucose 97 MG/DL Calcium Level 8.9 MG/DL Magnesium Level 1.9 MG/DL Total Bilirubin 0.2 MG/DL Aspartate Amino Transf 23 U/L (AST/SGOT) Alanine Aminotransferase 67 U/L (ALT/SGPT) Alkaline Phosphatase 186 U/L Total Protein 6.7 GM/DL Albumin 3.0 GM/DL Radiology Last Impressions Chest X-Ray 12/30/16 0600 Signed Impressions: Service Date/Time: December 02:07 - CONCLUSION: Left rib fractures with basilar consolidation and a chest tube. No pneumothorax seen. Giovanni Pradhan MD Consultation 12/24/16 0000 Signed Impressions: Service Date/Time: Saturday, December 24, 2016 00:00 - CONCLUSION: I have discussed the case with doctor Dr Aroldo Vera MD FACR Chest CT 12/24/16 0000 Signed Impressions: Service Date/Time: Saturday, December 24, 2016 11:19 - CONCLUSION: Increasing large left pleural effusion. Significant consolidative changes are evident as well. Aroldo Vera MD FACR Head CT 12/22/16 0000 Signed Impressions: Service Date/Time: Thursday, December 22, 2016 12:51 - CONCLUSION: 1. No acute intracranial abnormality. Derick Vera MD Pelvis X-Ray 12/19/16 1518 Signed Impressions: Service Date/Time: Monday, December 19, 2016 15:21 - CONCLUSION: Intact pelvis. Giovanni Pradhan MD Cervical Spine CT 12/19/16 1518 Signed Impressions: Service Date/Time: Monday, December 19, 2016 16:42 - CONCLUSION: No fracture or subluxation of the cervical spine. Degenerative changes at C5/C6 and C6/C7 as above. Giovanni Pradhan MD Abdomen/Pelvis CT 12/19/16 1518 Signed Impressions: Service Date/Time: Monday, December 19, 2016 16:51 - CONCLUSION: No evidence of acute trauma of the abdomen or pelvis. Enlarged and mild fatty infiltrated liver. Giovanni Pradhan MD Narrative Exam GENERAL: This is a 56-year-old male Lying in Bed. SKIN: Warm and dry. HEAD: Atraumatic. Normocephalic. EYES: PERRLA. 2 mm bilaterally. ENT: No nasal bleeding or discharge. Mucous membranes pink and moist. NECK: Trachea midline. No JVD. CARDIOVASCULAR: Regular rate and rhythm. RESPIRATORY: Patient found on without his oxygen on. Sats equals 88-89% on room air. Resumed 5 L nasal cannula and sats slowly increased to 92%. Lungs are clear to auscultation, but slightly decreased to LEFT lower lung. Breath sounds equal bilaterally. No distress or dyspnea. Left chest tube in place to Pleur-evac drainage system to 20 cm suction GASTROINTESTINAL: BS + x 4 quads. Abdomen large, non-tender, however distended. MUSCULOSKELETAL: Extremities without cyanosis, or edema. + peripheral pulses x 4 extremities. Warm with good capillary refill and sensation. MAEW. NEUROLOGICAL: Awake and alert. Normal speech and pattern. A/P Problem List: (1) Fall from ladder (2) Pulmonary contusion (3) Multiple rib fractures Assessment and Plan [place]: This is a 56-year-old male who fell approximately 13 feet from a ladder. He was cutting branches and the branch fell and knocked the ladder out from underneath him. He landed on his chest, on a tree stump. He was ambulatory at the scene. He walked himself to his car. No LOC. And hypoxic and confused last week, and was transferred to [facility] for closer monitoring. He eventually developed a retained hemothorax. He went to IR for chest tube placement. He progressed well, and [facility] PMHx: Psych. - Bipolar. anxiety. DM. INJURIES: LEFT rib fx (5-9) LEFT lung contusion * Mild fatty liver Procedures: 12/24: Left chest tube placed in IR for hemothorax - 1600 mL out Consults: CCM. Psychiatry. IR. Diet: 2000 gretchen ADA diet. Tolerating po diet. Encourage good po intake with each meal. Pulmonary: Encourage good pulmonary toileting. IS at bedside and pt encouraged to use. Rationale for use explained to patient, and verbalized understanding. EZpap. and nebs. AM chest x-ray - shows no PTX. Stable small left pleural effusion. Follow-up chest x-ray in the morning. PAIN Management: Dilaudid 2 mg q 4h po Dilaudid 1 mg q2h. Fentanyl patch. Robaxin 500 mg q8h. Neurontin. Motrin 400 every 6. Activity: OOB. PT and OT ordered. Encourage out of bed 3-4 times a day. Encourage ambulation in the hallway. GI prophylaxis: Protonix po. Bowel regimen: Colace and MOM. Lactulose. LBM: 12/30 DVT prophylaxis: Mechanical VTE with SCDs. Chemical management Lovenox 30 mg BID. DC Planning: Case management consulted for assistance with final discharge disposition. We'll most likely need O2 on discharge. Emotional support provided to patient and sister at bedside and plan of care discussed. Discussed with RN at bedside. Patient is hemodynamically stable and being managed on the med/surg floor. Left rib fractures Left lung contusion Large left hemothorax Supportive care Oxygen as needed to maintain O2 sats Patient is on a simple facemask at 6 L. Sats equal 95-96%. Aggressive pulmonary toileting IS, a cappella, EZpap. Patient again instructed in the importance of these exercises to prevent pneumonia. CDB. Pain management - Dilaudid po and IV. Robaxin. Neurontin. Added Fentanyl patch. Lidoderm patch. Motrin 400. Left chest tube in place to Pleur-evac drainage decreased to water seal today CT output =160 mL PT ordered. Encouraged out of bed 3-4 times a day. Encourage ambulation in the hallway. Follow-up chest x-ray in the morning. Bipolar/anxiety disorder Home medications resumed Psychiatry to assist in management and care - especially medication management Dr. Teran - ordered home dose of Seroquel 800 mg BID. Trazodone 100 mg hs Ativan 1 mg q6. Prozac 60 daily Neurontin 300 BID. Lamictal 150 mg BID Vistaril 100 QID PRN agitation The exam, history, and the medical decision-making described in the above note were completed with the assistance of the mid-level provider. I reviewed and agree with the findings presented. I attest that I had a [id number] encounter with the patient on the same day, and personally performed and documented my assessment and findings in the medical record. Problem Qualifiers (1) Fall from ladder: Qualified Code: W11.XXXA - Fall from ladder, initial encounter (2) Pulmonary contusion: Qualified Code: S27.321A - Contusion of left lung, initial encounter (3) Multiple rib fractures: Qualified Code: S22.42XA - Closed fracture of multiple ribs of left side, initial encounter Pam Carcamo Dec 30, 2016 11:16 William Giang MD Jan 04, 2017 12:55
[2016-12-30 12:00] VITALS: BP 111/68; PULSE 104; RESP 16; TEMP 97.2; O2SAT 93
[2016-12-30] MEDS: LORazepam 1 MG TAB PO PRN ×3 (12:26→21:19)
[2016-12-30] MEDS: HYDROmorphone HCL PF 1 MG/ML VIAL IVP PRN ×3 (12:32→22:51)
[2016-12-30] MEDS ORDERED: OXYGENDME NAS.CANULA (15:06)
[2016-12-30 16:00] VITALS: BP 126/81; PULSE 96; RESP 18; TEMP 97.3; O2SAT 93
[2016-12-30 20:31] VITALS: BP 114/77; PULSE 86; RESP 18; TEMP 97.8; O2SAT 95
[2016-12-30] MEDS: MAGNESIUM HYDROXIDE SUSP 30 ML CUP PO SCH (21:19)
[2016-12-31 00:13] VITALS: BP 125/71; PULSE 94; RESP 18; TEMP 96.4; O2SAT 94
[2016-12-31 04:01] LABS: BASOPHIL % 0.4 % (0.0-2.0); EOSINOPHIL # 0.4 TH/MM3 (0-0.4); EOSINOPHIL % 5.8 % (0.0-4.0); LYMPH % 27.3 % (9.0-44.0); LYMPHOCYTE # 1.9 TH/MM3 (1.0-4.8); MEAN CELL VOLUME 80.7 FL (80.0-100.0); MEAN CORPUSCULAR HEMOGLOBIN 26.7 PG (27.0-34.0); MONO % 10.6 % (0.0-8.0); NEUT % 55.9 % (16.0-70.0); PLATELET COUNT 594 TH/MM3 (150-450); RED BLOOD COUNT 3.47 MIL/MM3 (4.50-5.90); RED CELL DISTRIBUTION WIDTH 14.8 % (11.6-17.2); WHITE BLOOD COUNT 7.1 TH/MM3 (4.0-11.0)
[2016-12-31 04:08] LABS: HEMO FLAGS AUTO DIFF
[2016-12-31 04:19] LABS: ALT (GPT) 62 U/L (12-78); ANION GAP 6 MEQ/L (5-15); AST (GOT) 24 U/L (15-37); BLOOD UREA NITROGEN 13 MG/DL (7-18); CHLORIDE 102 MEQ/L (98-107); GLOMERULAR FILTRATION RATE 110 ML/MIN (>89); POTASSIUM 4.2 MEQ/L (3.5-5.1); SODIUM (NA) 139 MEQ/L (136-145)
[2016-12-31 04:21] LABS: ALKALINE PHOSPHATASE 175 U/L (45-117); TOTAL BILIRUBIN ADULT 0.2 MG/DL (0.2-1.0)
[2016-12-31] MEDS: ENOXAPARIN SODIUM 30 MG/0.3 ML SYRINGE SQ SCH ×2 (04:24→13:02)
[2016-12-31] MEDS: INSULIN NovoLIN REGULAR SUPPLEMENTAL SCALE SQ SCH ×4 (04:25→19:58)
[2016-12-31] MEDS: HYDROmorphone HCL 2 MG TAB PO PRN ×3 (04:25→18:37)
[2016-12-31] MEDS: METHOCARBAMOL 500 MG TAB PO SCH ×3 (04:25→19:59)
[2016-12-31] MEDS: HYDROmorphone HCL PF 1 MG/ML VIAL IVP PRN ×3 (05:29→21:26)
--- NOTE | 2016-12-31 06:08 | RADRPT ---
EXAM DATE/TIME: 12/31/2016 04:45 [facility] COMPARISON: CHEST SINGLE AP, December 30, 2016, 2:07. INDICATIONS : Evaluate pnuemothorax, left side chest tube. MEDICAL HISTORY : Cardiovascular disease. SURGICAL HISTORY : None. ENCOUNTER: Subsequent ACUITY: 2 weeks PAIN SCORE: 6/10 LOCATION: Bilateral chest FINDINGS: A single view of the chest demonstrates left-sided chest tube. Minimal density left lower lobe. No pn eumothorax. Multiple left-sided rib fractures. Right lung is clear. CONCLUSION: 1. Stable left basilar density. 2. No pneumothorax. Lopez Parham MD on December 31, 2016 at 6:06 Board Certified Radiologist. This report was verified electronically.
[2016-12-31 06:41] LABS: SCAN/DIFF AUTO DIFF CONFIRMED
[2016-12-31 08:00] VITALS: BP 112/66; PULSE 88; RESP 16; TEMP 96.4; O2SAT 93
[2016-12-31] MEDS: BACITRACIN TOP OINT 15 GM TUBE TOP SCH ×2 (09:00→20:00)
[2016-12-31] MEDS: LIDOCAINE HCL 5% PATCH T-DERMAL SCH (09:13)
[2016-12-31] MEDS: FLUoxetine HCL 20 MG CAP PO SCH (09:13)
[2016-12-31] MEDS: GABAPENTIN 300 MG CAP PO SCH ×2 (09:14→19:59)
[2016-12-31] MEDS: FENOFIBRATE 48 MG TAB PO SCH (09:14)
[2016-12-31] MEDS: lamoTRIgine 100 MG TAB PO SCH ×2 (09:14→20:00)
[2016-12-31] MEDS: metFORMIN HCL 500 MG TAB PO SCH ×2 (09:18→17:16)
[2016-12-31] MEDS: DOCUSATE SODIUM 100 MG CAP PO SCH ×2 (09:18→20:00)
[2016-12-31] MEDS: PANTOPRAZOLE SOD 40 MG DELAYED RELEASE TAB PO SCH (09:18)
[2016-12-31] MEDS: QUEtiapine FUMARATE 200 MG TAB PO SCH ×2 (09:18→19:59)
[2016-12-31] MEDS: LACTULOSE SYRUP 20 GM/30 ML CUP PO SCH (09:18)
[2016-12-31] MEDS: FLUTICASONE PROPIONATE 50 MCG/ACT 16 GM NASAL SPRAY NASAL SCH ×2 (09:19→20:01)
--- NOTE | 2016-12-31 10:13 | HHI.PR ---
Subjective Subjective Notes PTD: 12 Patient found asleep in bed. Arouses easily. Found with O2 off. Sats equal 87% on room air. O2 nasal cannula 5 L replaced and set slowly resume to 91-92%. No complaints offered today. Patient states he's been out of bed. Objective Vitals/I&O Vital Signs Date Time Temp Pulse Resp B/P Pulse Ox O2 Delivery O2 Flow Rate FiO2 12/31/16 09:20 93 Nasal Cannula 6.00 12/31/16 08:00 96.4 88 16 112/66 Labs Laboratory Tests Test 12/31/16 03:49 White Blood Count 7.1 Red Blood Count 3.47 Hemoglobin 9.2 Hematocrit 28.0 Mean Corpuscular Volume 80.7 Mean Corpuscular Hemoglobin 26.7 Mean Corpuscular Hemoglobin 33.0 Concent Red Cell Distribution Width 14.8 Platelet Count 594 Mean Platelet Volume 5.9 Neutrophils (%) (Auto) 55.9 Lymphocytes (%) (Auto) 27.3 Monocytes (%) (Auto) 10.6 Eosinophils (%) (Auto) 5.8 Basophils (%) (Auto) 0.4 Neutrophils # (Auto) 4.0 Lymphocytes # (Auto) 1.9 Monocytes # (Auto) 0.8 Eosinophils # (Auto) 0.4 Basophils # (Auto) 0.0 CBC Comment AUTO DIFF Differential Comment AUTO DIFF CONFIRMED Sodium Level 139 Potassium Level 4.2 Chloride Level 102 Carbon Dioxide Level 31.0 Anion Gap 6 Blood Urea Nitrogen 13 Creatinine 0.74 Estimat Glomerular Filtration 110 Rate Random Glucose 97 Calcium Level 9.3 Total Bilirubin 0.2 Aspartate Amino Transf 24 (AST/SGOT) Alanine Aminotransferase 62 (ALT/SGPT) Alkaline Phosphatase 175 Total Protein 7.0 Albumin 3.1 Radiology Last Impressions Chest X-Ray 12/30/16 0600 Signed Impressions: Service Date/Time: December 02:07 - CONCLUSION: Left rib fractures with basilar consolidation and a chest tube. No pneumothorax seen. Giovanni Pradhan MD Consultation 12/24/16 0000 Signed Impressions: Service Date/Time: Saturday, December 24, 2016 00:00 - CONCLUSION: I have discussed the case with doctor Dr Aroldo Vera MD FACR Chest CT 12/24/16 0000 Signed Impressions: Service Date/Time: Saturday, December 24, 2016 11:19 - CONCLUSION: Increasing large left pleural effusion. Significant consolidative changes are evident as well. Aroldo Vera MD FACR Head CT 12/22/16 0000 Signed Impressions: Service Date/Time: Thursday, December 22, 2016 12:51 - CONCLUSION: 1. No acute intracranial abnormality. Derick Vera MD Pelvis X-Ray 12/19/16 1518 Signed Impressions: Service Date/Time: Monday, December 19, 2016 15:21 - CONCLUSION: Intact pelvis. Giovanni Pradhan MD Cervical Spine CT 12/19/16 1518 Signed Impressions: Service Date/Time: Monday, December 19, 2016 16:42 - CONCLUSION: No fracture or subluxation of the cervical spine. Degenerative changes at C5/C6 and C6/C7 as above. Giovanni Pradhan MD Abdomen/Pelvis CT 12/19/16 1518 Signed Impressions: Service Date/Time: Monday, December 19, 2016 16:51 - CONCLUSION: No evidence of acute trauma of the abdomen or pelvis. Enlarged and mild fatty infiltrated liver. Giovanni Pradhan MD Narrative Exam GENERAL: This is a 56-year-old male lying in bed asleep. No distress noted. SKIN: Warm and dry. HEAD: Atraumatic. Normocephalic. EYES: PERRLA. 2 mm bilaterally. ENT: No nasal bleeding or discharge. Mucous membranes pink and moist. NECK: Trachea midline. No JVD. CARDIOVASCULAR: Regular rate and rhythm. RESPIRATORY: Patient found without his oxygen on. Sats equals 87% on room air. Resumed 5 L nasal cannula and sats slowly increased to 91-92%. Lungs are clear to auscultation, but slightly decreased to LEFT lower lung. Breath sounds equal bilaterally. No distress or dyspnea. Left chest tube in place to Pleur-evac drainage system to water seal. GASTROINTESTINAL: BS + x 4 quads. Abdomen large, non-tender, however distended. MUSCULOSKELETAL: Extremities without cyanosis, or edema. + peripheral pulses x 4 extremities. Warm with good capillary refill and sensation. MAEW. NEUROLOGICAL: Awake and alert. Normal speech and pattern. A/P Problem List: (1) Fall from ladder (2) Pulmonary contusion (3) Multiple rib fractures Assessment and Plan [place] [facility] [place]: This is a 56-year-old male who fell approximately 13 feet from a ladder. He was cutting branches and the branch fell and knocked the ladder out from underneath him. He landed on his chest, on a tree stump. He was ambulatory at the scene. He walked himself to his car. No LOC. And hypoxic and confused last week, and was transferred to [facility] for closer monitoring. He eventually developed a retained hemothorax. He went to IR for chest tube placement. He progressed well, and was transferred back to the MedSurg floor. PMHx: Psych. - Bipolar. anxiety. DM. INJURIES: LEFT rib fx (5-9) LEFT lung contusion * Mild fatty liver Procedures: 12/24: Left chest tube placed in IR for hemothorax - 1600 mL out Consults: CCM. Psychiatry. IR. Diet: 2000 gretchen ADA diet. Tolerating po diet. Encourage good po intake with each meal. Pulmonary: Encourage good pulmonary toileting. IS at bedside and pt encouraged to use. Rationale for use explained to patient, and verbalized understanding. EZpap. and nebs. AM chest x-ray - shows no PTX. Stable left lower lobe density Follow-up chest x-ray in the morning. PAIN Management: Dilaudid 2 mg q 4h po Dilaudid 1 mg q2h. Fentanyl patch. Robaxin 500 mg q8h. Neurontin. Motrin 400 every 6. Activity: OOB. PT and OT ordered. Encourage out of bed 3-4 times a day. Encourage ambulation in the hallway. GI prophylaxis: Protonix po. Bowel regimen: Colace and MOM. Lactulose. LBM: 12/30 DVT prophylaxis: Mechanical VTE with SCDs. Chemical management Lovenox 30 mg BID. DC Planning: Case management consulted for assistance with final discharge disposition. Will most likely need O2 on discharge. Emotional support provided to patient and sister at bedside and plan of care discussed. Discussed with RN at bedside. Patient is hemodynamically stable and being managed on the med/surg floor. Left rib fractures Left lung contusion Large left hemothorax Supportive care Oxygen as needed to maintain O2 sats Patient is on 5 L nasal cannula. Sats equal 91-92%. Patient is repeatedly found with O2 off. On room air, and sats in the 80s. Aggressive pulmonary toileting IS, a cappella, EZpap. Patient again instructed in the importance of these exercises to prevent pneumonia. CDB. Pain management - Dilaudid po and IV. Robaxin. Neurontin. Added Fentanyl patch. Lidoderm patch. Motrin 400. Left chest tube in place to Pleur-evac drainage decreased to water seal today CT output =180 mL PT ordered. Encouraged out of bed 3-4 times a day. Encourage ambulation in the hallway. Follow-up chest x-ray in the morning. Bipolar/anxiety disorder Home medications resumed Psychiatry to assist in management and care - especially medication management Dr. Teran - ordered home dose of Seroquel 800 mg BID. Trazodone 100 mg hs Ativan 1 mg q6. Prozac 60 daily Neurontin 300 BID. Lamictal 150 mg BID Vistaril 100 QID PRN agitation Problem Qualifiers (1) Fall from ladder: Qualified Code: W11.XXXA - Fall from ladder, initial encounter (2) Pulmonary contusion: Qualified Code: S27.321A - Contusion of left lung, initial encounter (3) Multiple rib fractures: Qualified Code: S22.42XA - Closed fracture of multiple ribs of left side, initial encounter Pam Carcamo Dec 31, 2016 10:13
[2016-12-31 12:00] VITALS: BP 113/73; PULSE 91; RESP 17; TEMP 96.5; O2SAT 94
[2016-12-31] MEDS: fentaNYL 25 MCG/HR PATCH T-DERMAL SCH (13:07)
[2016-12-31] MEDS ORDERED: REMOVE OLD DURAGESIC (FENTANYL) PATCH T-DERMAL SCH (14:00)
[2016-12-31 16:00] VITALS: BP 113/70; PULSE 100; RESP 17; TEMP 95.9; O2SAT 96
[2016-12-31] MEDS: MAGNESIUM HYDROXIDE SUSP 30 ML CUP PO SCH (19:59)
[2016-12-31] MEDS: LORazepam 1 MG TAB PO PRN (20:01)
[2016-12-31 20:30] VITALS: BP 117/74; PULSE 92; RESP 18; TEMP 96.5; O2SAT 98
[2016-12-31 23:45] VITALS: BP 109/70; PULSE 93; RESP 17; TEMP 96.3; O2SAT 95
[2017-01-01] MEDS: ENOXAPARIN SODIUM 30 MG/0.3 ML SYRINGE SQ SCH ×3 (00:55→22:49)
[2017-01-01 03:55] VITALS: BP 110/67; PULSE 86; RESP 20; TEMP 96.6; O2SAT 93
--- NOTE | 2017-01-01 04:46 | RADRPT ---
EXAM DATE/TIME: 01/01/2017 04:12 [place] COMPARISON: CHEST SINGLE AP, December 31, 2016, 4:45. INDICATIONS : Shortness of breath. Post trauma. MEDICAL HISTORY : Cardiovascular disease. SURGICAL HISTORY : None. ENCOUNTER: Subsequent ACUITY: 2 weeks PAIN SCORE: 0/10 LOCATION: Bilateral chest FINDINGS: A single view of the chest demonstrates left-sided chest tube without pneumothorax. Left basal densit y. Left-sided rib fractures. Right lung is clear. Heart normal in size. CONCLUSION: Left basilar density. No pneumothorax. Lopez Parham MD on January 01, 2017 at 4:44 Board Certified Radiologist. This report was verified electronically.
[2017-01-01] MEDS: METHOCARBAMOL 500 MG TAB PO SCH ×3 (04:55→20:25)
[2017-01-01] MEDS: INSULIN NovoLIN REGULAR SUPPLEMENTAL SCALE SQ SCH ×4 (04:55→20:27)
[2017-01-01] MEDS: HYDROmorphone HCL 2 MG TAB PO PRN ×4 (04:59→22:50)
[2017-01-01] MEDS: HYDROmorphone HCL PF 1 MG/ML VIAL IVP PRN ×3 (06:53→20:26)
[2017-01-01 08:00] VITALS: BP 123/71; PULSE 83; RESP 16; TEMP 97.2; O2SAT 95
[2017-01-01] MEDS: BACITRACIN TOP OINT 15 GM TUBE TOP SCH ×2 (09:00→20:27)
[2017-01-01] MEDS: QUEtiapine FUMARATE 200 MG TAB PO SCH ×2 (10:21→20:25)
[2017-01-01] MEDS: FLUoxetine HCL 20 MG CAP PO SCH (10:21)
[2017-01-01] MEDS: FENOFIBRATE 48 MG TAB PO SCH (10:22)
[2017-01-01] MEDS: metFORMIN HCL 500 MG TAB PO SCH ×2 (10:22→17:43)
[2017-01-01] MEDS: DOCUSATE SODIUM 100 MG CAP PO SCH ×2 (10:22→20:26)
[2017-01-01] MEDS: lamoTRIgine 100 MG TAB PO SCH ×2 (10:23→20:26)
[2017-01-01] MEDS: PANTOPRAZOLE SOD 40 MG DELAYED RELEASE TAB PO SCH (10:24)
[2017-01-01] MEDS: GABAPENTIN 300 MG CAP PO SCH ×2 (10:24→20:25)
[2017-01-01] MEDS: LACTULOSE SYRUP 20 GM/30 ML CUP PO SCH (10:25)
[2017-01-01] MEDS: FLUTICASONE PROPIONATE 50 MCG/ACT 16 GM NASAL SPRAY NASAL SCH ×2 (10:26→20:25)
[2017-01-01] MEDS: LORazepam 1 MG TAB PO PRN ×2 (10:37→22:59)
[2017-01-01] MEDS: LIDOCAINE HCL 5% PATCH T-DERMAL SCH (10:40)
[2017-01-01 12:00] VITALS: BP 136/74; PULSE 108; RESP 17; TEMP 96.2; O2SAT 95
--- NOTE | 2017-01-01 12:21 | HHI.PR ---
Subjective Subjective Notes PTD: 13 Patient found with oxygen off again upon rounds. Sats equal 79-80% on room air. O2 nasal cannula 5 L were placed and sats slowly resume to 91-92%. Discussed with patient the importance of keeping oxygen on and the need for it. Patient's states, "I just took it off across the nurse was here." Objective Vitals/I&O Vital Signs Date Time Temp Pulse Resp B/P Pulse Ox O2 Delivery O2 Flow Rate FiO2 01/01/17 12:00 96.2 108 17 136/74 95 12/31/16 20:30 Nasal Cannula 6.00 Labs Laboratory Tests Test 12/29/16 12/31/16 04:30 03:49 Platelet Estimate HIGH Platelet Morphology Comment NORMAL Polychromasia 2.1 % Ovalocytes 1+ Magnesium Level 1.9 MG/DL White Blood Count 7.1 TH/MM3 Red Blood Count 3.47 MIL/MM3 Hemoglobin 9.2 GM/DL Hematocrit 28.0 % Mean Corpuscular Volume 80.7 FL Mean Corpuscular Hemoglobin 26.7 PG Mean Corpuscular Hemoglobin 33.0 % Concent Red Cell Distribution Width 14.8 % Platelet Count 594 TH/MM3 Mean Platelet Volume 5.9 FL Neutrophils (%) (Auto) 55.9 % Lymphocytes (%) (Auto) 27.3 % Monocytes (%) (Auto) 10.6 % Eosinophils (%) (Auto) 5.8 % Basophils (%) (Auto) 0.4 % Neutrophils # (Auto) 4.0 TH/MM3 Lymphocytes # (Auto) 1.9 TH/MM3 Monocytes # (Auto) 0.8 TH/MM3 Eosinophils # (Auto) 0.4 TH/MM3 Basophils # (Auto) 0.0 TH/MM3 CBC Comment AUTO DIFF Differential Comment AUTO DIFF CONFIRMED Sodium Level 139 MEQ/L Potassium Level 4.2 MEQ/L Chloride Level 102 MEQ/L Carbon Dioxide Level 31.0 MEQ/L Anion Gap 6 MEQ/L Blood Urea Nitrogen 13 MG/DL Creatinine 0.74 MG/DL Estimat Glomerular Filtration 110 ML/MIN Rate Random Glucose 97 MG/DL Calcium Level 9.3 MG/DL Total Bilirubin 0.2 MG/DL Aspartate Amino Transf 24 U/L (AST/SGOT) Alanine Aminotransferase 62 U/L (ALT/SGPT) Alkaline Phosphatase 175 U/L Total Protein 7.0 GM/DL Albumin 3.1 GM/DL Radiology Last Impressions Chest X-Ray 12/30/16 0600 Signed Impressions: Service Date/Time: December 02:07 - CONCLUSION: Left rib fractures with basilar consolidation and a chest tube. No pneumothorax seen. Giovanni Pradhan MD Consultation 12/24/16 0000 Signed Impressions: Service Date/Time: Saturday, December 24, 2016 00:00 - CONCLUSION: I have discussed the case with doctor Dr Aroldo Vera MD FACR Chest CT 12/24/16 0000 Signed Impressions: Service Date/Time: Saturday, December 24, 2016 11:19 - CONCLUSION: Increasing large left pleural effusion. Significant consolidative changes are evident as well. Aroldo Vera MD FACR Head CT 12/22/16 0000 Signed Impressions: Service Date/Time: Thursday, December 22, 2016 12:51 - CONCLUSION: 1. No acute intracranial abnormality. Derick Vera MD Pelvis X-Ray 12/19/16 1518 Signed Impressions: Service Date/Time: Monday, December 19, 2016 15:21 - CONCLUSION: Intact pelvis. Giovanni Pradhan MD Cervical Spine CT 12/19/16 1518 Signed Impressions: Service Date/Time: Monday, December 19, 2016 16:42 - CONCLUSION: No fracture or subluxation of the cervical spine. Degenerative changes at C5/C6 and C6/C7 as above. Giovanni Pradhan MD Abdomen/Pelvis CT 12/19/16 1518 Signed Impressions: Service Date/Time: Monday, December 19, 2016 16:51 - CONCLUSION: No evidence of acute trauma of the abdomen or pelvis. Enlarged and mild fatty infiltrated liver. Giovanni Pradhan MD Narrative Exam GENERAL: This is a 56-year-old male sitting up in bed. No distress noted. SKIN: Warm and dry. HEAD: Atraumatic. Normocephalic. EYES: PERRLA. 2 mm bilaterally. ENT: No nasal bleeding or discharge. Mucous membranes pink and moist. NECK: Trachea midline. No JVD. CARDIOVASCULAR: Regular rate and rhythm. RESPIRATORY: Patient found without his oxygen on. Sats equals 79-80% on room air. Resumed 5 L nasal cannula and sats slowly increased to 91-92%. Lungs are clear to auscultation, but slightly decreased to LEFT lower lung. Breath sounds equal bilaterally. No distress or dyspnea. Left chest tube in place to Pleur-evac drainage system to water seal - drainage is dark brick red in color. GASTROINTESTINAL: BS + x 4 quads. Abdomen large, non-tender, however distended. MUSCULOSKELETAL: Extremities without cyanosis, or edema. + peripheral pulses x 4 extremities. Warm with good capillary refill and sensation. MAEW. NEUROLOGICAL: Awake and alert. Normal speech and pattern. A/P Problem List: (1) Fall from ladder (2) Pulmonary contusion (3) Multiple rib fractures Assessment and Plan [place]: This is a 56-year-old male who fell approximately 13 feet from a ladder. He was cutting branches and the branch fell and knocked the ladder out from underneath him. He landed on his chest, on a tree stump. He was ambulatory at the scene. He walked himself to his car. No LOC. And hypoxic and confused last week, and was transferred to [facility] for closer monitoring. He eventually developed a retained hemothorax. He went to IR for chest tube placement. He progressed well, and was transferred back to [facility] floor. PMHx: Psych. - Bipolar. anxiety. DM. INJURIES: LEFT rib fx (5-9) LEFT lung contusion * Mild fatty liver Procedures: 12/24: Left chest tube placed in IR for hemothorax - 1600 mL out Consults: CCM. Psychiatry. IR. Diet: 2000 gretchen ADA diet. Tolerating po diet. Encourage good po intake with each meal. Pulmonary: Nasal cannula 5 L humidified. Encourage good pulmonary toileting. IS at bedside and pt encouraged to use. Rationale for use explained to patient, and verbalized understanding. EZpap. and nebs. Discussed with patient at length the importance of keeping his oxygen on. AM chest x-ray - shows no PTX. Stable left lower lobe density Follow-up labs and chest x-ray in the morning. PAIN Management: Dilaudid 2 mg q 4h po Dilaudid 1 mg q2h. Fentanyl patch. Robaxin 500 mg q8h. Neurontin. Motrin 400 every 6. Activity: OOB. PT and OT ordered. Encourage out of bed 3-4 times a day. Encourage ambulation in the hallway. GI prophylaxis: Protonix po. Bowel regimen: Colace and MOM. Lactulose. LBM: 01/01 DVT prophylaxis: Mechanical VTE with SCDs. Chemical management Lovenox 30 mg BID. DC Planning: Case management consulted for assistance with final discharge disposition. Will most likely need O2 on discharge. Emotional support provided to patient at bedside and plan of care discussed. Discussed with RN at bedside. Patient is hemodynamically stable and being managed on the med/surg floor. Left rib fractures Left lung contusion Large left hemothorax Supportive care Oxygen as needed to maintain O2 sats Patient is on 5 L nasal cannula. Sats equal 91-92%. Patient is repeatedly found with O2 off. On room air, and sats in the 79-80%. Aggressive pulmonary toileting IS, a cappella, EZpap. Patient again instructed in the importance of these exercises to prevent pneumonia. CDB. Pain management - Dilaudid po and IV. Robaxin. Neurontin. Added Fentanyl patch. Lidoderm patch. Motrin 400. Left chest tube in place to Pleur-evac drainage decreased to water seal today CT output =25 mL overnight, however from 6a-12p chest tube output is 100 mL PT ordered. Encouraged out of bed 3-4 times a day. Encourage ambulation in the hallway. Follow-up chest x-ray in the morning. Bipolar/anxiety disorder Home medications resumed Psychiatry to assist in management and care - especially medication management Dr. Teran - ordered home dose of Seroquel 800 mg BID. Trazodone 100 mg hs Ativan 1 mg q6. Prozac 60 daily Neurontin 300 BID. Lamictal 150 mg BID Vistaril 100 QID PRN agitation Problem Qualifiers (1) Fall from ladder: Qualified Code: W11.XXXA - Fall from ladder, initial encounter (2) Pulmonary contusion: Qualified Code: S27.321A - Contusion of left lung, initial encounter (3) Multiple rib fractures: Qualified Code: S22.42XA - Closed fracture of multiple ribs of left side, initial encounter Pam Carcamo Jan 01, 2017 12:21
[2017-01-01 16:00] VITALS: BP 111/72; PULSE 97; RESP 17; TEMP 97.2; O2SAT 95
[2017-01-01 20:13] VITALS: BP 129/79; PULSE 90; RESP 17; TEMP 97.2; O2SAT 92
[2017-01-01] MEDS: MAGNESIUM HYDROXIDE SUSP 30 ML CUP PO SCH (20:25)
[2017-01-02] VITALS (8 sets, daily range): BP systolic 105–133; BP diastolic 57–84; PULSE 50–93; RESP 17–20; TEMP 96.3–98.8; O2SAT 93–98
[2017-01-02] MEDS: HYDROmorphone HCL PF 1 MG/ML VIAL IVP PRN ×2 (00:22→08:39)
[2017-01-02 05:07] LABS: AUTOMATED NEUTROPHIL # 4.8 TH/MM3 (1.8-7.7); BASOPHIL % 0.4 % (0.0-2.0); EOSINOPHIL # 0.5 TH/MM3 (0-0.4); EOSINOPHIL % 5.6 % (0.0-4.0); HEMATOCRIT 29.3 % (39.0-51.0); LYMPH % 26.5 % (9.0-44.0); LYMPHOCYTE # 2.1 TH/MM3 (1.0-4.8); MEAN CELL VOLUME 81.6 FL (80.0-100.0); MEAN CORPUSCULAR HEMOGLOBIN 26.4 PG (27.0-34.0); MEAN CORPUSCULAR HGB CONC 32.4 % (32.0-36.0); MONO % 8.6 % (0.0-8.0); NEUT % 58.9 % (16.0-70.0); PLATELET COUNT 714 TH/MM3 (150-450); RED BLOOD COUNT 3.59 MIL/MM3 (4.50-5.90); RED CELL DISTRIBUTION WIDTH 15.9 % (11.6-17.2); WHITE BLOOD COUNT 8.1 TH/MM3 (4.0-11.0)
[2017-01-02 05:16] LABS: HEMO FLAGS AUTO DIFF
[2017-01-02 05:33] LABS: ANION GAP 7 MEQ/L (5-15); AST (GOT) 18 U/L (15-37); BICARBONATE 28.7 MEQ/L (21.0-32.0); BLOOD UREA NITROGEN 13 MG/DL (7-18); CHLORIDE 102 MEQ/L (98-107); GLOMERULAR FILTRATION RATE 119 ML/MIN (>89); POTASSIUM 4.4 MEQ/L (3.5-5.1); SODIUM (NA) 138 MEQ/L (136-145)
[2017-01-02 05:34] LABS: ALT (GPT) 45 U/L (12-78)
[2017-01-02 05:36] LABS: ALKALINE PHOSPHATASE 160 U/L (45-117); TOTAL BILIRUBIN ADULT 0.2 MG/DL (0.2-1.0)
[2017-01-02 05:39] LABS: PLATELET ESTIMATE SMEAR HIGH (NORMAL); PLATELET MORPHOLOGY NORMAL (NORMAL); SCAN/DIFF AUTO DIFF CONFIRMED
[2017-01-02] MEDS: METHOCARBAMOL 500 MG TAB PO SCH ×3 (05:44→20:00)
[2017-01-02] MEDS: INSULIN NovoLIN REGULAR SUPPLEMENTAL SCALE SQ SCH ×4 (05:44→20:00)
[2017-01-02] MEDS: HYDROmorphone HCL 2 MG TAB PO PRN ×4 (06:06→20:02)
[2017-01-02] MEDS: QUEtiapine FUMARATE 200 MG TAB PO SCH ×2 (08:36→20:00)
[2017-01-02] MEDS: GABAPENTIN 300 MG CAP PO SCH ×2 (08:36→20:00)
[2017-01-02] MEDS: lamoTRIgine 100 MG TAB PO SCH ×2 (08:36→19:59)
[2017-01-02] MEDS: LACTULOSE SYRUP 20 GM/30 ML CUP PO SCH (08:36)
[2017-01-02] MEDS: DOCUSATE SODIUM 100 MG CAP PO SCH ×2 (08:37→19:59)
[2017-01-02] MEDS: FLUoxetine HCL 20 MG CAP PO SCH (08:37)
[2017-01-02] MEDS: FENOFIBRATE 48 MG TAB PO SCH (08:38)
[2017-01-02] MEDS: metFORMIN HCL 500 MG TAB PO SCH ×2 (08:38→18:07)
[2017-01-02] MEDS: PANTOPRAZOLE SOD 40 MG DELAYED RELEASE TAB PO SCH (08:38)
[2017-01-02] MEDS: FLUTICASONE PROPIONATE 50 MCG/ACT 16 GM NASAL SPRAY NASAL SCH ×2 (08:39→19:58)
[2017-01-02] MEDS: BACITRACIN TOP OINT 15 GM TUBE TOP SCH ×2 (09:00→20:00)
--- NOTE | 2017-01-02 09:45 | HHI.PR ---
Subjective Subjective Notes PTD: 14 Patient found on 3 L nasal cannula. Sats equal 93-94%. Patient states that his pain varies. "I woke up in a really bad way." Patient states, "my spinal cord feels like the bones were ripped right out of it. Am I going to be paralyzed?" Relayed to patient his injuries from his fall. Objective Vitals/I&O Vital Signs Date Time Temp Pulse Resp B/P Pulse Ox O2 Delivery O2 Flow Rate FiO2 01/02/17 08:32 97 01/02/17 08:00 97.2 50 17 114/57 01/02/17 07:55 Nasal Cannula 3.00 Labs Laboratory Tests Test 01/02/17 04:21 White Blood Count 8.1 Red Blood Count 3.59 Hemoglobin 9.5 Hematocrit 29.3 Mean Corpuscular Volume 81.6 Mean Corpuscular Hemoglobin 26.4 Mean Corpuscular Hemoglobin 32.4 Concent Red Cell Distribution Width 15.9 Platelet Count 714 Mean Platelet Volume 5.9 Neutrophils (%) (Auto) 58.9 Lymphocytes (%) (Auto) 26.5 Monocytes (%) (Auto) 8.6 Eosinophils (%) (Auto) 5.6 Basophils (%) (Auto) 0.4 Neutrophils # (Auto) 4.8 Lymphocytes # (Auto) 2.1 Monocytes # (Auto) 0.7 Eosinophils # (Auto) 0.5 Basophils # (Auto) 0.0 CBC Comment AUTO DIFF Differential Comment AUTO DIFF CONFIRMED Platelet Estimate HIGH Platelet Morphology Comment NORMAL Red Cell Morphology Comment NORMAL Sodium Level 138 Potassium Level 4.4 Chloride Level 102 Carbon Dioxide Level 28.7 Anion Gap 7 Blood Urea Nitrogen 13 Creatinine 0.69 Estimat Glomerular Filtration 119 Rate Random Glucose 95 Calcium Level 9.1 Total Bilirubin 0.2 Aspartate Amino Transf 18 (AST/SGOT) Alanine Aminotransferase 45 (ALT/SGPT) Alkaline Phosphatase 160 Total Protein 6.8 Albumin 3.1 Radiology Last Impressions Chest X-Ray 12/30/16 0600 Signed Impressions: Service Date/Time: December 02:07 - CONCLUSION: Left rib fractures with basilar consolidation and a chest tube. No pneumothorax seen. Giovanni Pradhan MD Consultation 12/24/16 0000 Signed Impressions: Service Date/Time: Saturday, December 24, 2016 00:00 - CONCLUSION: I have discussed the case with doctor Dr Aroldo Vera MD FACR Chest CT 12/24/16 0000 Signed Impressions: Service Date/Time: Saturday, December 24, 2016 11:19 - CONCLUSION: Increasing large left pleural effusion. Significant consolidative changes are evident as well. Aroldo Vera MD FACR Head CT 12/22/16 0000 Signed Impressions: Service Date/Time: Thursday, December 22, 2016 12:51 - CONCLUSION: 1. No acute intracranial abnormality. Derick Vera MD Pelvis X-Ray 12/19/16 1518 Signed Impressions: Service Date/Time: Monday, December 19, 2016 15:21 - CONCLUSION: Intact pelvis. Giovanni Pradhan MD Cervical Spine CT 12/19/16 1518 Signed Impressions: Service Date/Time: Monday, December 19, 2016 16:42 - CONCLUSION: No fracture or subluxation of the cervical spine. Degenerative changes at C5/C6 and C6/C7 as above. Giovanni Pradhan MD Abdomen/Pelvis CT 12/19/16 1518 Signed Impressions: Service Date/Time: Monday, December 19, 2016 16:51 - CONCLUSION: No evidence of acute trauma of the abdomen or pelvis. Enlarged and mild fatty infiltrated liver. Giovanni Pradhan MD Narrative Exam GENERAL: This is a 56-year-old male sitting up in bed. No distress noted. SKIN: Warm and dry. HEAD: Atraumatic. Normocephalic. EYES: PERRLA. 2 mm bilaterally. ENT: No nasal bleeding or discharge. Mucous membranes pink and moist. NECK: Trachea midline. No JVD. CARDIOVASCULAR: Regular rate and rhythm. RESPIRATORY: O2 nasal cannula 3 L. Sats equal 93-94%. Lungs are clear to auscultation, but slightly decreased to LEFT lower lung. Breath sounds equal bilaterally. No distress or dyspnea. Left chest tube in place to Pleur-evac drainage system to water seal - drainage is dark brick red in color. GASTROINTESTINAL: BS + x 4 quads. Abdomen large, non-tender, however distended. MUSCULOSKELETAL: Extremities without cyanosis, or edema. + peripheral pulses x 4 extremities. Warm with good capillary refill and sensation. MAEW. NEUROLOGICAL: Awake and alert. Normal speech and pattern. A/P Problem List: (1) Fall from ladder (2) Pulmonary contusion (3) Multiple rib fractures Assessment and Plan [place]: This is a 56-year-old male who fell approximately 13 feet from a ladder. He was cutting branches and the branch fell and knocked the ladder out from underneath him. He landed on his chest, on a tree stump. He was ambulatory at the scene. He walked himself to his car. No LOC. And hypoxic and confused last week, and was transferred to [facility] for closer monitoring. He eventually developed a retained hemothorax. He went to IR for chest tube placement. He progressed well, and was transferred back to the [facility] floor. PMHx: Psych. - Bipolar. anxiety. DM. INJURIES: LEFT rib fx (5-9) LEFT lung contusion * Mild fatty liver Procedures: 12/24: Left chest tube placed in IR for hemothorax - 1600 mL out Consults: FIOLMENA. Psychiatry. IR. Diet: 2000 gretchen ADA diet. Tolerating po diet. Encourage good po intake with each meal. Pulmonary: Nasal cannula 3 L humidified. Sats equal 93-94%. Encourage good pulmonary toileting. IS at bedside and pt encouraged to use. Rationale for use explained to patient, and verbalized understanding. EZpap. and nebs. Discussed with patient at length the importance of keeping his oxygen on. CT output = 90 ml. Chest x-ray - shows no PTX. Stable left lower lobe density Follow-up chest x-ray in the morning. PAIN Management: Dilaudid 2 mg q 4h po Increased Fentanyl patch dose. Robaxin 500 mg q8h. Neurontin. Motrin 400 every 6. Activity: OOB. PT and OT ordered. Encourage out of bed 3-4 times a day. Encourage ambulation in the hallway. GI prophylaxis: Changed to Pepcid HS. Bowel regimen: Colace and MOM. Lactulose daily. LBM: 01/02 DVT prophylaxis: Mechanical VTE with SCDs. Chemical management Lovenox 30 mg BID. DC Planning: Case management consulted for assistance with final discharge disposition. Will most likely need O2 on discharge. Emotional support provided to patient at bedside and plan of care discussed. Discussed with RN at bedside. Patient is hemodynamically stable and being managed on the med/surg floor. Left rib fractures Left lung contusion Large left hemothorax Supportive care Oxygen as needed to maintain O2 sats Patient is on 3 L nasal cannula. Sats equal 93-94%. Plan is to wean O2 to 2 L, so patient may go home Aggressive pulmonary toileting IS, acapella, EZpap. Patient again instructed in the importance of these exercises to prevent pneumonia. CDB. Pain management - Dilaudid po Robaxin. Neurontin. Fentanyl patch. Lidoderm patch. Motrin 400. Left chest tube in place to Pleur-evac drainage to water seal. CT output =90 mL overnight. PT ordered. Encouraged out of bed 3-4 times a day. Encourage ambulation in the hallway. Follow-up chest x-ray in the morning. Bipolar/anxiety disorder Home medications resumed Psychiatry to assist in management and care - especially medication management Dr. Teran - ordered home dose of Seroquel 800 mg BID. Trazodone 100 mg hs Ativan 1 mg q6. Prozac 60 daily Neurontin 300 BID. Lamictal 150 mg BID Vistaril 100 QID PRN agitation The exam, history, and the medical decision-making described in the above note were completed with the assistance of the mid-level provider. I reviewed and agree with the findings presented. I attest that I had a [id number] encounter with the patient on the same day, and personally performed and documented my assessment and findings in the medical record. Problem Qualifiers (1) Fall from ladder: Qualified Code: W11.XXXA - Fall from ladder, initial encounter (2) Pulmonary contusion: Qualified Code: S27.321A - Contusion of left lung, initial encounter (3) Multiple rib fractures: Qualified Code: S22.42XA - Closed fracture of multiple ribs of left side, initial encounter Pam Carcamo Jan 02, 2017 09:45 William Giang MD Jan 03, 2017 11:36
[2017-01-02] MEDS: ENOXAPARIN SODIUM 30 MG/0.3 ML SYRINGE SQ SCH (11:15)
[2017-01-02] MEDS: LIDOCAINE HCL 5% PATCH T-DERMAL SCH (11:21)
[2017-01-02] MEDS: fentaNYL 50 MCG/HR PATCH T-DERMAL SCH (12:09)
[2017-01-02] MEDS: REMOVE OLD DURAGESIC (FENTANYL) PATCH T-DERMAL SCH (12:10)
[2017-01-02] MEDS: LORazepam 1 MG TAB PO PRN (18:07)
[2017-01-02] MEDS: MAGNESIUM HYDROXIDE SUSP 30 ML CUP PO SCH (19:59)
[2017-01-02] MEDS: FAMOTIDINE 20 MG TAB PO SCH (20:00)
[2017-01-03] VITALS (8 sets, daily range): BP systolic 104–123; BP diastolic 55–81; PULSE 69–95; RESP 17–18; TEMP 96–98.5; O2SAT 93–98
[2017-01-03] MEDS: ENOXAPARIN SODIUM 30 MG/0.3 ML SYRINGE SQ SCH ×2 (01:00→14:58)
[2017-01-03] MEDS: HYDROmorphone HCL 2 MG TAB PO PRN ×3 (05:23→14:58)
[2017-01-03] MEDS: METHOCARBAMOL 500 MG TAB PO SCH ×3 (05:23→20:35)
[2017-01-03] MEDS: INSULIN NovoLIN REGULAR SUPPLEMENTAL SCALE SQ SCH ×4 (05:24→20:37)
--- NOTE | 2017-01-03 06:51 | RADRPT ---
EXAM DATE/TIME: 01/03/2017 05:29 [facility] COMPARISON: CHEST SINGLE AP, January 01, 2017, 4:12. INDICATIONS : Fell off ladder 2 weeks ago, pain left chest, back and ribs. Evaluate left chest tube and hemothorax MEDICAL HISTORY : Venous insufficiency. left rib fractures SURGICAL HISTORY : chest tube ENCOUNTER: Subsequent ACUITY: 2 weeks PAIN SCORE: 7/10 LOCATION: Left chest FINDINGS: Left chest drainage tube remains projected of the left lower chest. There is increasing opacity in t he left lower chest housing loss of delineation of the entire left hemidiaphragm and the entire left heart border. Stable left rib fractures. The right lung is clear. No evidence of pneumothorax. Th e heart is stable in size. CONCLUSION: There is an increasing size opacity in the left lower lung, fluid versus consolidation versus combina tion of both. Gautam Mary MD on January 03, 2017 at 6:48 Board Certified Radiologist. This report was verified electronically.
[2017-01-03] MEDS: BACITRACIN TOP OINT 15 GM TUBE TOP SCH ×2 (09:00→20:33)
[2017-01-03] MEDS: LORazepam 1 MG TAB PO PRN ×3 (10:30→23:26)
[2017-01-03] MEDS: LIDOCAINE HCL 5% PATCH T-DERMAL SCH (10:55)
[2017-01-03] MEDS: QUEtiapine FUMARATE 200 MG TAB PO SCH ×2 (11:01→20:32)
[2017-01-03] MEDS: FENOFIBRATE 48 MG TAB PO SCH (11:01)
[2017-01-03] MEDS: lamoTRIgine 100 MG TAB PO SCH ×2 (11:01→20:28)
[2017-01-03] MEDS: GABAPENTIN 300 MG CAP PO SCH ×2 (11:01→20:30)
[2017-01-03] MEDS: FLUoxetine HCL 20 MG CAP PO SCH (11:02)
[2017-01-03] MEDS: DOCUSATE SODIUM 100 MG CAP PO SCH ×2 (11:02→20:27)
[2017-01-03] MEDS: metFORMIN HCL 500 MG TAB PO SCH ×2 (11:02→18:52)
[2017-01-03] MEDS: FLUTICASONE PROPIONATE 50 MCG/ACT 16 GM NASAL SPRAY NASAL SCH ×2 (11:03→20:27)
[2017-01-03] MEDS: LACTULOSE SYRUP 20 GM/30 ML CUP PO SCH (11:10)
--- NOTE | 2017-01-03 14:16 | HHI.PR ---
Subjective Subjective Notes PTD: 15 Patient sitting up in chair. No distress noted. Has been out of bed and walking already today. "I want to discuss my pain medications. I need the IV Dilaudid back." Explained increase and fentanyl patch yesterday. Pt is 2 weeks post injury, and we need to start decreasing his narcotics so he can DC soon. Instructed patient of the numerous pain medications he is on - Dilaudid po, Robaxin, Neurontin, fentanyl patch, Lidoderm patch, and Motrin. Patient states, "those are my psych meds not my pain meds. I need the IV Dilaudid." Objective Vitals/I&O Vital Signs Date Time Temp Pulse Resp B/P Pulse Ox O2 Delivery O2 Flow Rate FiO2 01/03/17 12:00 97.4 93 18 111/64 94 01/03/17 09:33 Nasal Cannula 3.00 Labs Laboratory Tests Test 01/02/17 04:21 White Blood Count 8.1 TH/MM3 Red Blood Count 3.59 MIL/MM3 Hemoglobin 9.5 GM/DL Hematocrit 29.3 % Mean Corpuscular Volume 81.6 FL Mean Corpuscular Hemoglobin 26.4 PG Mean Corpuscular Hemoglobin 32.4 % Concent Red Cell Distribution Width 15.9 % Platelet Count 714 TH/MM3 Mean Platelet Volume 5.9 FL Neutrophils (%) (Auto) 58.9 % Lymphocytes (%) (Auto) 26.5 % Monocytes (%) (Auto) 8.6 % Eosinophils (%) (Auto) 5.6 % Basophils (%) (Auto) 0.4 % Neutrophils # (Auto) 4.8 TH/MM3 Lymphocytes # (Auto) 2.1 TH/MM3 Monocytes # (Auto) 0.7 TH/MM3 Eosinophils # (Auto) 0.5 TH/MM3 Basophils # (Auto) 0.0 TH/MM3 CBC Comment AUTO DIFF Differential Comment AUTO DIFF CONFIRMED Platelet Estimate HIGH Platelet Morphology Comment NORMAL Red Cell Morphology Comment NORMAL Sodium Level 138 MEQ/L Potassium Level 4.4 MEQ/L Chloride Level 102 MEQ/L Carbon Dioxide Level 28.7 MEQ/L Anion Gap 7 MEQ/L Blood Urea Nitrogen 13 MG/DL Creatinine 0.69 MG/DL Estimat Glomerular Filtration 119 ML/MIN Rate Random Glucose 95 MG/DL Calcium Level 9.1 MG/DL Total Bilirubin 0.2 MG/DL Aspartate Amino Transf 18 U/L (AST/SGOT) Alanine Aminotransferase 45 U/L (ALT/SGPT) Alkaline Phosphatase 160 U/L Total Protein 6.8 GM/DL Albumin 3.1 GM/DL Radiology Last Impressions Chest X-Ray 01/03/17 0600 Signed Impressions: Service Date/Time: Tuesday, January 03, 2017 05:29 - CONCLUSION: There is an increasing size opacity in the left lower lung, fluid versus consolidation versus combination of both. Gautam Mary MD Consultation 12/24/16 0000 Signed Impressions: Service Date/Time: Saturday, December 24, 2016 00:00 - CONCLUSION: I have discussed the case with doctor Dr Aroldo Vera MD FACR Chest CT 12/24/16 0000 Signed Impressions: Service Date/Time: Saturday, December 24, 2016 11:19 - CONCLUSION: Increasing large left pleural effusion. Significant consolidative changes are evident as well. Aroldo Vera MD FACR Head CT 12/22/16 0000 Signed Impressions: Service Date/Time: Thursday, December 22, 2016 12:51 - CONCLUSION: 1. No acute intracranial abnormality. Derick Vera MD Pelvis X-Ray 12/19/16 1518 Signed Impressions: Service Date/Time: Monday, December 19, 2016 15:21 - CONCLUSION: Intact pelvis. Giovanni Pradhan MD Cervical Spine CT 12/19/16 1518 Signed Impressions: Service Date/Time: Monday, December 19, 2016 16:42 - CONCLUSION: No fracture or subluxation of the cervical spine. Degenerative changes at C5/C6 and C6/C7 as above. Giovanni Pradhan MD Abdomen/Pelvis CT 12/19/16 1518 Signed Impressions: Service Date/Time: Monday, December 19, 2016 16:51 - CONCLUSION: No evidence of acute trauma of the abdomen or pelvis. Enlarged and mild fatty infiltrated liver. Giovanni Pradhan MD Narrative Exam GENERAL: This is a 56-year-old male OOB a recliner chair. No distress noted. SKIN: Warm and dry. HEAD: Atraumatic. Normocephalic. EYES: PERRLA. 2 mm bilaterally. ENT: No nasal bleeding or discharge. Mucous membranes pink and moist. NECK: Trachea midline. No JVD. CARDIOVASCULAR: Regular rate and rhythm. RESPIRATORY: O2 nasal cannula 5 L. Sats equal 92%. Lungs are clear to auscultation, but slightly decreased to LEFT lower lung. Breath sounds equal bilaterally. No distress or dyspnea. Left chest tube in place to Pleur-evac drainage system to water seal - drainage is dark brick red in color. GASTROINTESTINAL: BS + x 4 quads. Abdomen large, non-tender, however distended. MUSCULOSKELETAL: Extremities without cyanosis, or edema. + peripheral pulses x 4 extremities. Warm with good capillary refill and sensation. MAEW. NEUROLOGICAL: Awake and alert. Normal speech and pattern. A/P Problem List: (1) Fall from ladder (2) Pulmonary contusion (3) Multiple rib fractures Assessment and Plan [place]: This is a 56-year-old male who fell approximately 13 feet from a ladder. He was cutting branches and the branch fell and knocked the ladder out from underneath him. He landed on his chest, on a tree stump. He was ambulatory at the scene. He walked himself to his car. No LOC. And hypoxic and confused last week, and was transferred to [facility] for closer monitoring. He eventually developed a retained hemothorax. He went to IR for chest tube placement. He progressed well, and was transferred back to the [facility] floor. PMHx: Psych. - Bipolar. anxiety. DM. INJURIES: LEFT rib fx (5-9) LEFT lung contusion * Mild fatty liver Procedures: 12/24: Left chest tube placed in IR for hemothorax - 1600 mL out Consults: CCM. Psychiatry. IR. Diet: 2000 gretchen ADA diet. Tolerating po diet. Encourage good po intake with each meal. Pulmonary: Nasal cannula 5 L humidified. Sats equal 92%. Encourage good pulmonary toileting. IS at bedside and pt encouraged to use. Rationale for use explained to patient, and verbalized understanding. EZpap. and nebs. Discussed with patient at length the importance of keeping his oxygen on. CT output = 190 ml. Chest x-ray - shows no PTX. Stable left lower lobe opacity Follow-up chest x-ray in the morning. PAIN Management: Dilaudid 2 mg q 4h po Fentanyl patch 50 mcg. Robaxin 500 mg q8h. Neurontin. Motrin 400 every 6. Activity: OOB. PT and OT ordered. Encourage out of bed 3-4 times a day. Encourage ambulation in the hallway. GI prophylaxis: Pepcid HS. Bowel regimen: Colace and MOM. Lactulose daily. LBM: 01/03 DVT prophylaxis: Mechanical VTE with SCDs. Chemical management Lovenox 30 mg BID. DC Planning: Case management consulted for assistance with final discharge disposition. Will most likely need O2 on discharge. Emotional support provided to patient at bedside and plan of care discussed. Discussed with RN at bedside. Patient is hemodynamically stable and being managed on the med/surg floor. Left rib fractures Left lung contusion Large left hemothorax Supportive care Oxygen as needed to maintain O2 sats Patient is on 5 L nasal cannula. Sats equal 92%. Plan is to wean O2 to 2 L, so patient may go home Aggressive pulmonary toileting IS, acapella, EZpap. Patient again instructed in the importance of these exercises to prevent pneumonia. CDB. Pain management - Dilaudid po Robaxin. Neurontin. Fentanyl patch. Lidoderm patch. Motrin 400. Left chest tube in place to Pleur-evac drainage to water seal. CT output =190 mL overnight. PT ordered. Encouraged out of bed 3-4 times a day. Encourage ambulation in the hallway. Follow-up chest x-ray in the morning. Bipolar/anxiety disorder Home medications resumed Psychiatry to assist in management and care - especially medication management Dr. Teran - ordered home dose of Seroquel 800 mg BID. Trazodone 100 mg hs Ativan 1 mg q6. Prozac 60 daily Neurontin 300 BID. Lamictal 150 mg BID Vistaril 100 QID PRN agitation Attending Statement Patient is very agitated today Is accusing staff of not giving him pain medications instead of giving him psychiatric medications. He is extremely paranoid Apparently patient went to shower on his own with a chest tube it seems he fell in the shower and hence the increased drainage over the last few days Patient is asking every day for more pain medications and he is already on fentanyl patch Neurontin, Dilauded, lidocaine patch, Robaxin and Motrin. Any attempt to reason with the patient and explained to him the pain the management and care was unsuccessful patient called my nurse practitioner a "carlota blackwell". The exam, history, and the medical decision-making described in the above note were completed with the assistance of the mid-level provider. I reviewed and agree with the findings presented. I attest that I had a hhzh-[id number] encounter with the patient on the same day, and personally performed and documented my assessment and findings in the medical record. Problem Qualifiers (1) Fall from ladder: Qualified Code: W11.XXXA - Fall from ladder, initial encounter (2) Pulmonary contusion: Qualified Code: S27.321A - Contusion of left lung, initial encounter (3) Multiple rib fractures: Qualified Code: S22.42XA - Closed fracture of multiple ribs of left side, initial encounter Pam Carcamo Jan 03, 2017 14:16 Mee Aleman MD Jan 03, 2017 16:29
[2017-01-03] MEDS: ACETAMINOPHEN/CODEINE 300 MG/30 MG TAB PO PRN ×2 (18:52→23:26)
[2017-01-03] MEDS ORDERED: IBUP400T20 PO (19:52)
[2017-01-03] MEDS: MAGNESIUM HYDROXIDE SUSP 30 ML CUP PO SCH (20:30)
[2017-01-03] MEDS: FAMOTIDINE 20 MG TAB PO SCH (20:31)
[2017-01-04] VITALS: BP 124/70; PULSE 99; RESP 20; TEMP 97.5; O2SAT 93
[2017-01-04] MEDS: traZODone HCL 100 MG TAB PO PRN (01:42)
[2017-01-04] MEDS: ENOXAPARIN SODIUM 30 MG/0.3 ML SYRINGE SQ SCH ×2 (01:44→12:06)
[2017-01-04] MEDS: IBUPROFEN 400 MG TAB PO PRN ×3 (02:05→14:34)
[2017-01-04 04:00] VITALS: BP 100/77; PULSE 104; RESP 20; TEMP 99.1; O2SAT 92
[2017-01-04] MEDS: METHOCARBAMOL 500 MG TAB PO SCH ×3 (04:45→21:18)
[2017-01-04] MEDS: INSULIN NovoLIN REGULAR SUPPLEMENTAL SCALE SQ SCH ×4 (04:45→21:00)
[2017-01-04] MEDS: ACETAMINOPHEN/CODEINE 300 MG/30 MG TAB PO PRN ×2 (04:47→08:24)
[2017-01-04] MEDS: LORazepam 1 MG TAB PO PRN ×2 (04:51→14:34)
--- NOTE | 2017-01-04 06:32 | RADRPT ---
EXAM DATE/TIME: 01/04/2017 05:21 [facility] COMPARISON: CHEST SINGLE AP, January 03, 2017, 5:29. INDICATIONS : Fell off ladder 2 weeks ago, pain left chest, back and ribs. Evaluate left chest tube and hemothorax MEDICAL HISTORY : left rib fractures SURGICAL HISTORY : chest tube ENCOUNTER: Subsequent ACUITY: 2 weeks PAIN SCORE: 8/10 LOCATION: Left buttock FINDINGS: Persistent consolidation in the left lower lung with loss of delineation of the left hemidiaphragm. Chest drainage tube is present in the lower left chest. No evidence pneumothorax. Meniscal interfac e in the lower right chest suggests pleural effusion. The heart is stable in size. Multiple left ri b fractures. CONCLUSION: Persistent consolidation left lower lobe. No pneumothorax. Small right pleural effusion. Gautam Mary MD on January 04, 2017 at 6:29 Board Certified Radiologist. This report was verified electronically.
[2017-01-04 08:00] VITALS: BP 101/64; PULSE 69; RESP 18; TEMP 96; O2SAT 99
[2017-01-04] MEDS: QUEtiapine FUMARATE 200 MG TAB PO SCH ×2 (08:24→21:18)
[2017-01-04] MEDS: metFORMIN HCL 500 MG TAB PO SCH ×2 (08:25→18:03)
[2017-01-04] MEDS: GABAPENTIN 300 MG CAP PO SCH ×2 (08:25→21:18)
[2017-01-04] MEDS: FENOFIBRATE 48 MG TAB PO SCH (08:25)
[2017-01-04] MEDS: FLUoxetine HCL 20 MG CAP PO SCH (08:25)
[2017-01-04] MEDS: DOCUSATE SODIUM 100 MG CAP PO SCH ×2 (08:25→21:18)
[2017-01-04] MEDS: LACTULOSE SYRUP 20 GM/30 ML CUP PO SCH (08:26)
[2017-01-04] MEDS: lamoTRIgine 100 MG TAB PO SCH ×2 (08:26→21:18)
[2017-01-04] MEDS: LIDOCAINE HCL 5% PATCH T-DERMAL SCH (08:27)
[2017-01-04] MEDS: BACITRACIN TOP OINT 15 GM TUBE TOP SCH ×2 (08:27→21:00)
[2017-01-04] MEDS: FLUTICASONE PROPIONATE 50 MCG/ACT 16 GM NASAL SPRAY NASAL SCH ×2 (08:36→21:19)
--- NOTE | 2017-01-04 10:18 | HHI.PR ---
Subjective Subjective Notes PTD: 15 Patient asleep in bed, arouses easily. Sister at bedside. Patient states, "I didn't sleep at all last night. I am very painful right here [points to the left side and back.]" Patient and sister state that the Tylenol 3 is not working to control his pain. They are both asking for Dilaudid to be reordered. "I don't want to get strung out or anything, but I need the Dilaudid." Objective Vitals/I&O Vital Signs Date Time Temp Pulse Resp B/P Pulse Ox O2 Delivery O2 Flow Rate FiO2 01/04/17 08:00 96.0 69 18 101/64 99 01/03/17 20:20 Nasal Cannula 3.00 Humidified Labs Laboratory Tests Test 01/02/17 04:21 White Blood Count 8.1 TH/MM3 Red Blood Count 3.59 MIL/MM3 Hemoglobin 9.5 GM/DL Hematocrit 29.3 % Mean Corpuscular Volume 81.6 FL Mean Corpuscular Hemoglobin 26.4 PG Mean Corpuscular Hemoglobin 32.4 % Concent Red Cell Distribution Width 15.9 % Platelet Count 714 TH/MM3 Mean Platelet Volume 5.9 FL Neutrophils (%) (Auto) 58.9 % Lymphocytes (%) (Auto) 26.5 % Monocytes (%) (Auto) 8.6 % Eosinophils (%) (Auto) 5.6 % Basophils (%) (Auto) 0.4 % Neutrophils # (Auto) 4.8 TH/MM3 Lymphocytes # (Auto) 2.1 TH/MM3 Monocytes # (Auto) 0.7 TH/MM3 Eosinophils # (Auto) 0.5 TH/MM3 Basophils # (Auto) 0.0 TH/MM3 CBC Comment AUTO DIFF Differential Comment AUTO DIFF CONFIRMED Platelet Estimate HIGH Platelet Morphology Comment NORMAL Red Cell Morphology Comment NORMAL Sodium Level 138 MEQ/L Potassium Level 4.4 MEQ/L Chloride Level 102 MEQ/L Carbon Dioxide Level 28.7 MEQ/L Anion Gap 7 MEQ/L Blood Urea Nitrogen 13 MG/DL Creatinine 0.69 MG/DL Estimat Glomerular Filtration 119 ML/MIN Rate Random Glucose 95 MG/DL Calcium Level 9.1 MG/DL Total Bilirubin 0.2 MG/DL Aspartate Amino Transf 18 U/L (AST/SGOT) Alanine Aminotransferase 45 U/L (ALT/SGPT) Alkaline Phosphatase 160 U/L Total Protein 6.8 GM/DL Albumin 3.1 GM/DL Radiology Last Impressions Chest X-Ray 01/04/17 0600 Signed Impressions: Service Date/Time: Wednesday, January 04, 2017 05:21 - CONCLUSION: Persistent consolidation left lower lobe. No pneumothorax. Small right pleural effusion. Gautam Mary MD Consultation 12/24/16 0000 Signed Impressions: Service Date/Time: Saturday, December 24, 2016 00:00 - CONCLUSION: I have discussed the case with doctor Dr Aroldo Vera MD FACR Chest CT 12/24/16 0000 Signed Impressions: Service Date/Time: Saturday, December 24, 2016 11:19 - CONCLUSION: Increasing large left pleural effusion. Significant consolidative changes are evident as well. Aroldo Vera MD FACR Head CT 12/22/16 0000 Signed Impressions: Service Date/Time: Thursday, December 22, 2016 12:51 - CONCLUSION: 1. No acute intracranial abnormality. Derick Vera MD Pelvis X-Ray 12/19/16 1518 Signed Impressions: Service Date/Time: Monday, December 19, 2016 15:21 - CONCLUSION: Intact pelvis. Giovanni Pradhan MD Cervical Spine CT 12/19/16 1518 Signed Impressions: Service Date/Time: Monday, December 19, 2016 16:42 - CONCLUSION: No fracture or subluxation of the cervical spine. Degenerative changes at C5/C6 and C6/C7 as above. Giovanni Pradhan MD Abdomen/Pelvis CT 12/19/16 1518 Signed Impressions: Service Date/Time: Monday, December 19, 2016 16:51 - CONCLUSION: No evidence of acute trauma of the abdomen or pelvis. Enlarged and mild fatty infiltrated liver. Giovanni Pradhan MD Narrative Exam GENERAL: This is a 56-year-old male sitting up in bed. No distress noted. Sister at bedside SKIN: Warm and dry. HEAD: Atraumatic. Normocephalic. EYES: PERRLA. 2 mm bilaterally. ENT: No nasal bleeding or discharge. Mucous membranes pink and moist. NECK: Trachea midline. No JVD. CARDIOVASCULAR: Regular rate and rhythm. RESPIRATORY: O2 nasal cannula 3 L. Sats equal 92%. Lungs are clear to auscultation, but slightly decreased to LEFT lower lung. Breath sounds equal bilaterally. No distress or dyspnea. Left chest tube in place to Pleur-evac drainage system to water seal - drainage is dark brick red in color. GASTROINTESTINAL: BS + x 4 quads. Abdomen large, non-tender, however distended. MUSCULOSKELETAL: Extremities without cyanosis, or edema. + peripheral pulses x 4 extremities. Warm with good capillary refill and sensation. MAEW. NEUROLOGICAL: Awake and alert. Normal speech and pattern. A/P Problem List: (1) Fall from ladder (2) Pulmonary contusion (3) Multiple rib fractures Assessment and Plan [place]: This is a 56-year-old male who fell approximately 13 feet from a ladder. He was cutting branches and the branch fell and knocked the ladder out from underneath him. He landed on his chest, on a tree stump. He was ambulatory at the scene. He walked himself to his car. No LOC. And hypoxic and confused last week, and was transferred to [facility] for closer monitoring. He eventually developed a retained hemothorax. He went to IR for chest tube placement. He progressed well, and was transferred back to the [facility] floor. PMHx: Psych. - Bipolar. anxiety. DM. INJURIES: LEFT rib fx (5-9) LEFT lung contusion * Mild fatty liver Procedures: 12/24: Left chest tube placed in IR for hemothorax - 1600 mL out Consults: CCM. Psychiatry. IR. Diet: 2000 gretchen ADA diet. Tolerating po diet. Encourage good po intake with each meal. Pulmonary: Nasal cannula 3 L humidified. Sats equal 92%. Encourage good pulmonary toileting. IS at bedside and pt encouraged to use. Rationale for use explained to patient, and verbalized understanding. EZpap. and nebs. Discussed with patient at length the importance of keeping his oxygen on. CT output = 260 ml. Chest x-ray - shows no PTX. Left lower lobe consolidation. Follow-up labs and chest x-ray in the morning. PAIN Management: Tylenol w codeine DC'd. Resumed Dilaudid 2 mg po. Fentanyl patch 50 mcg. Robaxin 500 mg q8h. Neurontin. Motrin 400 every 6. Activity: OOB. PT and OT ordered. Encourage out of bed 3-4 times a day. Encourage ambulation in the hallway. GI prophylaxis: Pepcid HS. Bowel regimen: Colace and MOM. Lactulose daily. LBM: 01/04 DVT prophylaxis: Mechanical VTE with SCDs. Chemical management Lovenox 30 mg BID. DC Planning: Case management consulted for assistance with final discharge disposition. Will most likely need O2 on discharge. Emotional support provided to patient at bedside and plan of care discussed. Discussed with RN at bedside. Patient is hemodynamically stable and being managed on the med/surg floor. Left rib fractures Left lung contusion Large left hemothorax Supportive care Oxygen as needed to maintain O2 sats Patient is on 3 L nasal cannula. Sats equal 92%. Plan is to wean O2 to 2 L, so patient may go home Aggressive pulmonary toileting IS, acapella, EZpap. Patient again instructed in the importance of these exercises to prevent pneumonia. CDB. Pain management - Dilaudid po Robaxin. Neurontin. Fentanyl patch. Lidoderm patch. Motrin 400. Left chest tube in place to Pleur-evac drainage to water seal. CT output =260 mL/24 hrs Chest Xray shows LLL consolidation. PT ordered. Encouraged out of bed 3-4 times a day. Encourage ambulation in the hallway. Follow-up chest x-ray in the morning. Bipolar/anxiety disorder Home medications resumed Psychiatry to assist in management and care - especially medication management Dr. Teran - ordered home dose of Seroquel 800 mg BID. Trazodone 100 mg hs Ativan 1 mg q6. Prozac 60 daily Neurontin 300 BID. Lamictal 150 mg BID Vistaril 100 QID PRN agitation Problem Qualifiers (1) Fall from ladder: Qualified Code: W11.XXXA - Fall from ladder, initial encounter (2) Pulmonary contusion: Qualified Code: S27.321A - Contusion of left lung, initial encounter (3) Multiple rib fractures: Qualified Code: S22.42XA - Closed fracture of multiple ribs of left side, initial encounter Pam Carcamo Jan 04, 2017 10:18
[2017-01-04 12:00] VITALS: BP 98/61; PULSE 107; RESP 20; TEMP 99.1; O2SAT 92
[2017-01-04] MEDS: HYDROmorphone HCL 2 MG TAB PO PRN ×2 (12:07→18:03)
[2017-01-04 18:00] VITALS: BP 133/74; PULSE 111; RESP 20; TEMP 101.1; O2SAT 90
[2017-01-04 20:00] VITALS: BP 132/66; PULSE 105; RESP 20; TEMP 96.9; O2SAT 93
[2017-01-04] MEDS: MAGNESIUM HYDROXIDE SUSP 30 ML CUP PO SCH (21:00)
[2017-01-04] MEDS: FAMOTIDINE 20 MG TAB PO SCH (21:19)
[2017-01-05] VITALS (8 sets, daily range): BP systolic 101–130; BP diastolic 53–77; PULSE 69–117; RESP 16–20; TEMP 96–98.7; O2SAT 92–97
[2017-01-05] MEDS: ENOXAPARIN SODIUM 30 MG/0.3 ML SYRINGE SQ SCH ×3 (01:00→23:44)
[2017-01-05] MEDS: RESP: ALBUTEROL 2.5 MG/IPRATROPIUM 0.5 MG NEB (PRN) NEB (04:08)
[2017-01-05] MEDS: METHOCARBAMOL 500 MG TAB PO SCH ×3 (05:38→20:21)
[2017-01-05] MEDS: HYDROmorphone HCL 2 MG TAB PO PRN ×3 (05:38→23:37)
[2017-01-05] MEDS: INSULIN NovoLIN REGULAR SUPPLEMENTAL SCALE SQ SCH ×4 (05:39→20:25)
[2017-01-05 06:33] LABS: ANION GAP 7 MEQ/L (5-15); AST (GOT) 16 U/L (15-37); BICARBONATE 24.6 MEQ/L (21.0-32.0); BLOOD UREA NITROGEN 10 MG/DL (7-18); CHLORIDE 101 MEQ/L (98-107); GLOMERULAR FILTRATION RATE 117 ML/MIN (>89); POTASSIUM 3.8 MEQ/L (3.5-5.1); SODIUM (NA) 133 MEQ/L (136-145)
[2017-01-05 06:34] LABS: ALT (GPT) 34 U/L (12-78)
[2017-01-05 06:36] LABS: ALKALINE PHOSPHATASE 151 U/L (45-117); TOTAL BILIRUBIN ADULT 0.6 MG/DL (0.2-1.0)
--- NOTE | 2017-01-05 06:45 | RADRPT ---
EXAM DATE/TIME: 01/05/2017 05:25 [facility] COMPARISON: CHEST SINGLE AP, January 04, 2017, 5:21. INDICATIONS : Chest pain. MEDICAL HISTORY : Left rib fractures. SURGICAL HISTORY : Chest tube. ENCOUNTER: Subsequent ACUITY: 2 weeks PAIN SCORE: 8/10 LOCATION: Left chest FINDINGS: Left chest drainage tube remains projected lateral left midlung. Persistent consolidation in the lef t lower lobe with loss of delineation of the entire left hemidiaphragm. The right lung is clear. No blunting of the right costophrenic angle. The heart is stable in size. CONCLUSION: Persistent left lower lobe consolidation. Gautam Mary MD on January 05, 2017 at 6:43 Board Certified Radiologist. This report was verified electronically.
[2017-01-05 07:04] LABS: AUTOMATED NEUTROPHIL # 14.2 TH/MM3 (1.8-7.7); BASOPHIL % 0.1 % (0.0-2.0); EOSINOPHIL # 0.5 TH/MM3 (0-0.4); EOSINOPHIL % 2.9 % (0.0-4.0); HEMATOCRIT 30.4 % (39.0-51.0); HEMO FLAGS DIFF FINAL; LYMPH % 5.2 % (9.0-44.0); LYMPHOCYTE # 0.9 TH/MM3 (1.0-4.8); MEAN CELL VOLUME 81.8 FL (80.0-100.0); MEAN CORPUSCULAR HEMOGLOBIN 26.5 PG (27.0-34.0); MEAN CORPUSCULAR HGB CONC 32.5 % (32.0-36.0); MONO % 8.3 % (0.0-8.0); NEUT % 83.5 % (16.0-70.0); PLATELET COUNT 730 TH/MM3 (150-450); RED BLOOD COUNT 3.72 MIL/MM3 (4.50-5.90)
[2017-01-05] MEDS: BACITRACIN TOP OINT 15 GM TUBE TOP SCH ×2 (09:00→20:25)
[2017-01-05] MEDS: DOCUSATE SODIUM 100 MG CAP PO SCH ×2 (09:14→20:19)
[2017-01-05] MEDS: FLUoxetine HCL 20 MG CAP PO SCH (09:14)
[2017-01-05] MEDS: metFORMIN HCL 500 MG TAB PO SCH ×2 (09:14→16:56)
[2017-01-05] MEDS: GABAPENTIN 300 MG CAP PO SCH ×2 (09:14→20:21)
[2017-01-05] MEDS: FENOFIBRATE 48 MG TAB PO SCH (09:15)
[2017-01-05] MEDS: lamoTRIgine 100 MG TAB PO SCH ×2 (09:15→20:19)
[2017-01-05] MEDS: QUEtiapine FUMARATE 200 MG TAB PO SCH ×2 (09:15→20:21)
[2017-01-05] MEDS: LACTULOSE SYRUP 20 GM/30 ML CUP PO SCH (09:15)
[2017-01-05] MEDS: LIDOCAINE HCL 5% PATCH T-DERMAL SCH (09:16)
[2017-01-05] MEDS: REMOVE OLD DURAGESIC (FENTANYL) PATCH T-DERMAL SCH (09:16)
[2017-01-05] MEDS: fentaNYL 50 MCG/HR PATCH T-DERMAL SCH (09:16)
[2017-01-05] MEDS: LORazepam 1 MG TAB PO PRN ×2 (09:26→18:11)
[2017-01-05] MEDS: IBUPROFEN 400 MG TAB PO PRN (09:27)
[2017-01-05] MEDS: FLUTICASONE PROPIONATE 50 MCG/ACT 16 GM NASAL SPRAY NASAL SCH ×2 (09:28→20:19)
[2017-01-05] MEDS ORDERED: IOHEXOL 350 MG/ML 10 ML VIAL (for RAD DIAG) IV ONE (12:56)
--- NOTE | 2017-01-05 13:01 | RADRPT ---
EXAM DATE/TIME: 01/05/2017 12:44 [facility] COMPARISON: No previous studies available for comparison. INDICATIONS : Generalized abdominal pain. IV CONTRAST: 70 cc Omnipaque 350 (iohexol) IV ; Cumulative dose for multiple exams. ORAL CONTRAST: No oral contrast ingested. RADIATION DOSE: 6.7 CTDIvol (mGy) ; Combined studies - Thorax/Abdomen/Pelvis MEDICAL HISTORY : Cardiovascular disease. SURGICAL HISTORY : Cholecystectomy. ENCOUNTER: Initial ACUITY: 1 day PAIN SCALE: Non-responsive LOCATION: abdomen TECHNIQUE: Volumetric scanning of the abdomen and pelvis was performed. Using automated exposure control and ad justment of the mA and/or kV according to patient size, radiation dose was kept as low as reasonably achievable to obtain optimal diagnostic quality images. DICOM format image data is available electro nically for review and comparison. FINDINGS: LOWER LUNGS: Consolidative change and fluid at the posterior left lung base with chest tube in place. Minimal atel ectasis in the right base. LIVER: Homogeneous density without lesion. There is no dilation of the biliary tree. Gallbladder surgically absent.. SPLEEN: Normal size without lesion. PANCREAS: Within normal limits. KIDNEYS: Normal in size and shape. There is no mass, stone or hydronephrosis. ADRENAL GLANDS: Within normal limits. VASCULAR: There is no aortic aneurysm. BOWEL/MESENTERY: The stomach, small bowel, and colon demonstrate no acute abnormality. There is no free intraperitone al air or fluid. ABDOMINAL WALL: Within normal limits. RETROPERITONEUM: There is no lymphadenopathy. BLADDER: No wall thickening or mass. REPRODUCTIVE: Within normal limits. INGUINAL: There is no lymphadenopathy or hernia. MUSCULOSKELETAL: Within normal limits for patient age. CONCLUSION: No acute CT findings in the abdomen or pelvis. Giovanni Talbot MD on January 05, 2017 at 12:56 Board Certified Radiologist. This report was verified electronically.
--- NOTE | 2017-01-05 13:03 | RADRPT ---
EXAM DATE/TIME: 01/05/2017 12:41 [facility] COMPARISON: CT THORAX W/O CONTRAST, December 24, 2016, 11:19. INDICATIONS : Hemothorax. IV CONTRAST: 70 cc Omnipaque 350 (iohexol) IV ; Cumulative dose for multiple exams. RADIATION DOSE: 6.7 CTDIvol (mGy) ; Combined studies - Thorax/Abdomen/Pelvis MEDICAL HISTORY : Cardiovascular disease. SURGICAL HISTORY : Cholecystectomy. ENCOUNTER: Initial ACUITY: 1 day PAIN SCALE: Non-responsive LOCATION: chest TECHNIQUE: Volumetric scanning of the chest was performed. Using automated exposure control and adjustment of t he mA and/or kV according to patient size, radiation dose was kept as low as reasonably achievable to obtain optimal diagnostic quality images. DICOM format image data is available electronically for review and comparison. FINDINGS: LUNGS: Left base thoracostomy tube is noted. There is consolidation in small effusion at the left base and s ome loculated posterior fluid in the higher left chest. Mild patchy atelectasis present in the contra lateral right lung. PLEURA: There is no pleural thickening or pleural effusion. MEDIASTINUM: The heart and great vessels demonstrate no acute abnormality. There is no mediastinal or hilar lymph adenopathy. Coronary calcifications noted AXILLAE: Within normal limits. No lymphadenopathy. SKELETAL: Multiple left rib fractures again noted. MISCELLANEOUS: The visualized upper abdominal organs demonstrate no acute abnormality. CONCLUSION: Left base chest tube with some residual consolidative change, dependent fluid and loculated fluid. Mi nimal changes in the right lung. Giovanni Talbot MD on January 05, 2017 at 12:59 Board Certified Radiologist. This report was verified electronically.
--- NOTE | 2017-01-05 13:04 | HHI.PR ---
Subjective Subjective Notes Febrile overnight, + leukocytosis Nursing reports patient is having hallucinations During visit patient found with oxygen on floor Objective Vitals/I&O Vital Signs Date Time Temp Pulse Resp B/P Pulse Ox O2 Delivery O2 Flow Rate FiO2 01/05/17 12:05 93 Nasal Cannula 4.00 01/05/17 12:00 96.0 117 20 125/66 Labs Laboratory Tests Test 01/05/17 05:39 White Blood Count 17.0 Red Blood Count 3.72 Hemoglobin 9.9 Hematocrit 30.4 Mean Corpuscular Volume 81.8 Mean Corpuscular Hemoglobin 26.5 Mean Corpuscular Hemoglobin 32.5 Concent Red Cell Distribution Width 15.0 Platelet Count 730 Mean Platelet Volume 6.1 Neutrophils (%) (Auto) 83.5 Lymphocytes (%) (Auto) 5.2 Monocytes (%) (Auto) 8.3 Eosinophils (%) (Auto) 2.9 Basophils (%) (Auto) 0.1 Neutrophils # (Auto) 14.2 Lymphocytes # (Auto) 0.9 Monocytes # (Auto) 1.4 Eosinophils # (Auto) 0.5 Basophils # (Auto) 0.0 CBC Comment DIFF FINAL Differential Comment Sodium Level 133 Potassium Level 3.8 Chloride Level 101 Carbon Dioxide Level 24.6 Anion Gap 7 Blood Urea Nitrogen 10 Creatinine 0.70 Estimat Glomerular Filtration 117 Rate Random Glucose 143 Calcium Level 9.0 Total Bilirubin 0.6 Aspartate Amino Transf 16 (AST/SGOT) Alanine Aminotransferase 34 (ALT/SGPT) Alkaline Phosphatase 151 Total Protein 7.0 Albumin 3.0 Radiology Last Impressions Chest X-Ray 01/04/17 0600 Signed Impressions: Service Date/Time: Wednesday, January 04, 2017 05:21 - CONCLUSION: Persistent consolidation left lower lobe. No pneumothorax. Small right pleural effusion. Gautam Mary MD Consultation 12/24/16 0000 Signed Impressions: Service Date/Time: Saturday, December 24, 2016 00:00 - CONCLUSION: I have discussed the case with doctor Dr Aroldo Vera MD FACR Chest CT 12/24/16 0000 Signed Impressions: Service Date/Time: Saturday, December 24, 2016 11:19 - CONCLUSION: Increasing large left pleural effusion. Significant consolidative changes are evident as well. Aroldo Vera MD FACR Head CT 12/22/16 0000 Signed Impressions: Service Date/Time: Thursday, December 22, 2016 12:51 - CONCLUSION: 1. No acute intracranial abnormality. Derick Vera MD Pelvis X-Ray 12/19/161517 Signed Impressions: Service Date/Time: Monday, December 19, 2016 15:21 - CONCLUSION: Intact pelvis. Giovanni Pradhan MD Cervical Spine CT 12/19/161517 Signed Impressions: Service Date/Time: Monday, December 19, 2016 16:42 - CONCLUSION: No fracture or subluxation of the cervical spine. Degenerative changes at C5/C6 and C6/C7 as above. Giovanni Pradhan MD Abdomen/Pelvis CT 12/19/161517 Signed Impressions: Service Date/Time: Monday, December 19, 2016 16:51 - CONCLUSION: No evidence of acute trauma of the abdomen or pelvis. Enlarged and mild fatty infiltrated liver. Giovanni Pradhan MD Narrative Exam GENERAL: 56-year-old obese male sitting at the side of the bed. SKIN: Warm and dry. Patient appears pale. HEAD: Normocephalic. NECK: Trachea midline. No JVD. CARDIOVASCULAR: Regular rate and rhythm. RESPIRATORY: No accessory muscle use. Lungs diminished to auscultation in all hughes. Left lateral chest tube in place secured to water seal with sanguinous drainage noted. No air leak. GASTROINTESTINAL: Abdomen slightly firm, distended, tender to palpation in left upper quadrant. + BS MUSCULOSKELETAL: Extremities without cyanosis, or edema. NEUROLOGICAL: Awake and alert. Normal speech. A/P Problem List: (1) Fall from ladder (2) Pulmonary contusion (3) Multiple rib fractures Assessment and Plan INJURIES LEFT rib fx (5-9) LEFT lung contusion 12/24: LEFT CT placed for hemothorax Diet: 1999 ADA diet. Pulmonary: IS. EZpap. nebs. Pain: Percocet. Dilaudid IV. Robaxin. Lidoderm patch. Activity: OOB. PT evaluating. No home needs. GI: Protonix PO Bowel: Colace. MOM. Lactulose. LBM 01/04 DVT: SCD's. Lovenox 30 BID Left rib fractures, Left lung contusion Pulmonary toileting Pain control Supportive care 12/24: LEFT CT placed for hemothorax Chest tube with 50mL of drainage out overnight Repeat CT chest today for leukocytosis and fever. CT abdomen for abdominal pain. OOB- PT Plan of care discussed with patient, sister and RN at bedside. Case management consulted to assist discharge planning. Problem Qualifiers (1) Fall from ladder: Qualified Code: W11.XXXA - Fall from ladder, initial encounter (2) Pulmonary contusion: Qualified Code: S27.321A - Contusion of left lung, initial encounter (3) Multiple rib fractures: Qualified Code: S22.42XA - Closed fracture of multiple ribs of left side, initial encounter Pelon Boyer Jan 05, 2017 13:03
[2017-01-05] MEDS ORDERED: VANCOMYCIN INJ 1,000 MG in SODIUM CHLOR 0.9% 250 ML INJ 250 ML IV SCH (14:00)
[2017-01-05] MEDS ORDERED: PIPERACIL-TAZO 3.375 GM PREMIX 50 ML IV SCH (15:00)
[2017-01-05] MEDS ORDERED: Vancomycin Consult Pharmacy 1 EA OTHER SCH (16:30)
--- NOTE | 2017-01-05 16:47 | PD.CONS ---
History of Present Illness Service Infectious disease Consult Requested By Meryl Hanks [employer] GRADER Reason for Consult Evaluate patient with fever and leukocytosis Primary Care Physician Non-Staff Diagnoses: History of Present Illness Patient seen and examined. Records reviewed. Patient is a 56-year-old male, admitted to the hospital December 20 as a trauma alert. He was apparently cutting down some tree branches and he was up in a 13 foot ladder when the branch swing and hit the ladder and not the ladder out from under him. He fell and lost his balance. There was no loss of consciousness. He started experiencing pain on his left chest, and back. Evaluation in the ED showed evidence of multiple rib fractures on the left side from rib 5-9, with pulmonary contusion. He has good oxygen saturation. He was being manage for his pain control. Starting December 22 he started having problem with intermittent confusion, tachycardia, and hypoxemia. Over the next several days his respiratory status did not improve, and repeat CT showed increasing effusion on the left side. He had placement of a chest tube on the left side with drainage of 1.7 L of old blood. Had the chest tube since. His main complaint is the pain on the left side. Last night he spiked a temperature to 101, and his WBC went up to 17,000 today. Patient is also now complaining of abdominal pain. He underwent CT of the chest which showed significant improvement in the effusion, with some residual consolidative changes on the left side. CT of the abdomen and pelvis did not show any significant pathology. Patient has not had any diarrhea. He has not had any nausea or vomiting. Patient denies any congestion or significant cough. He denies any urinary complaints. Patient does not have any central line. Infectious disease consultation requested to evaluate the patient with fever and leukocytosis. Review of Systems Constitutional: COMPLAINS OF: Fever, DENIES: Chills, Night Sweats Eyes: DENIES: Eye pain Ears, nose, mouth, throat: DENIES: Nasal discharge, Oral lesions, Throat pain, Hoarseness, Ear Pain, Sinus Pain Respiratory: DENIES: Cough, Sputum production, Shortness of breath Cardiovascular: COMPLAINS OF: Chest pain, DENIES: Palpitations, Dyspnea on Exertion Gastrointestinal: COMPLAINS OF: Abdominal pain, DENIES: Nausea, Vomiting, Difficulty Swallowing Genitourinary: DENIES: Urgency, Hematuria, Dysuria Musculoskeletal: COMPLAINS OF: Back pain, DENIES: Joint pain, Joint Swelling Integumentary: DENIES: Rash Immunologic/allergic: DENIES: Urticaria Neurologic: DENIES: Headache Psychiatric: COMPLAINS OF: Anxiety, Mood changes, Depression, DENIES: Hallucinations Past Family Social History Allergies: Coded Allergies: CRESTOR (Verified Allergy, Intermediate, 12/19/16) Invega Sustenna (Verified Allergy, Intermediate, 12/19/16) [place] (Verified Allergy, Intermediate, 12/19/16) Omeprazole (Verified Allergy, Intermediate, 12/19/16) Risperdal (Verified Allergy, Intermediate, 12/19/16) Tramadol (Verified Allergy, Mild, 12/19/16) Past Medical History Bipolar disorder Anxiety Diabetes Past Surgical History Right ankle surgery Right arm surgery Cholecystectomy Active Ordered Medications Albuterol Dulcolax Colace Vasotec Lovenox Pepcid Tricor Fentanyl patch Prozac Flonase Neurontin Dilaudid Vistaril Motrin Insulin Lactulose Lamictal Ativan MOM Glucophage Robaxin Zofran Zosyn Seroquel Desyrel Vancomycin Family History Noncontributory Social History Denies smoking Denies alcohol abuse Denies illicit drug Physical Exam Vital Signs Vital Signs Date Time Temp Pulse Resp B/P Pulse Ox O2 Delivery O2 Flow Rate FiO2 01/05/17 12:05 93 Nasal Cannula 4.00 01/05/17 12:00 96.0 117 20 125/66 94 01/05/17 09:15 Nasal Cannula 2.00 01/05/17 08:00 96.4 69 20 109/66 97 01/05/17 04:08 92 Nasal Cannula 2.00 01/05/17 04:00 98.3 106 18 101/53 94 01/05/17 00:00 98.7 97 18 107/67 95 01/04/17 20:00 96.9 105 20 132/66 93 01/04/17 18:00 101.1 111 20 133/74 90 Physical Exam GENERAL: Patient is an obese, well-developed CM, awake and alert, not in respiratory distress. SKIN: Warm and dry. No generalized rash, no ecchymoses and no evidence of embolic lesions. IV sites look ok with no evidence of infection HEAD: Atraumatic. Normocephalic. No temporal wasting, or tenderness. EYES: [place] conjunctiva. No petechia or hemorrhage. Pupils equal, round and reactive to light. Extraocular movements full and intact. No scleral icterus. No injection or drainage. EARS, NOSE AND THROAT: Nose without bleeding or purulent nasal discharge. No sinus tenderness. Mucous membranes pink and moist. No oral lesions noted. No exudate. No oral thrush. NECK: Trachea midline. Supple and not tender, no meningeal signs CARDIOVASCULAR: Regular rate and rhythm. No murmurs, rubs or gallops heard RESPIRATORY: Clear to auscultation on R, decreased BS on L. CT on L side, has bloody output, not a lot ABDOMEN: Globular, distended, with diffuse tenderness. No guarding or rebound. Bowel sounds present and normoactive. No organomegaly. EXTREMITIES: No clubbing, cyanosis, or edema. No joint effusion, has good ROM. No calf tenderness. Well perfused and warm. NEUROLOGICAL: Awake and alert. Cranial nerves grossly intact. Motor grossly within normal limits. PSYCHIATRIC: Normal affect, calm and cooperative. LINE: No evidence of infection Laboratory Laboratory Tests Test 01/05/17 05:39 White Blood Count 17.0 Red Blood Count 3.72 Hemoglobin 9.9 Hematocrit 30.4 Mean Corpuscular Volume 81.8 Mean Corpuscular Hemoglobin 26.5 Mean Corpuscular Hemoglobin 32.5 Concent Red Cell Distribution Width 15.0 Platelet Count 730 Mean Platelet Volume 6.1 Neutrophils (%) (Auto) 83.5 Lymphocytes (%) (Auto) 5.2 Monocytes (%) (Auto) 8.3 Eosinophils (%) (Auto) 2.9 Basophils (%) (Auto) 0.1 Neutrophils # (Auto) 14.2 Lymphocytes # (Auto) 0.9 Monocytes # (Auto) 1.4 Eosinophils # (Auto) 0.5 Basophils # (Auto) 0.0 CBC Comment DIFF FINAL Differential Comment Sodium Level 133 Potassium Level 3.8 Chloride Level 101 Carbon Dioxide Level 24.6 Anion Gap 7 Blood Urea Nitrogen 10 Creatinine 0.70 Estimat Glomerular Filtration 117 Rate Random Glucose 143 Calcium Level 9.0 Total Bilirubin 0.6 Aspartate Amino Transf 16 (AST/SGOT) Alanine Aminotransferase 34 (ALT/SGPT) Alkaline Phosphatase 151 Total Protein 7.0 Albumin 3.0 Date/Time Procedure Status Source Growth 01/05/17 13:35 Aerobic Blood Culture Received Blood Peripheral Pending 01/05/17 13:35 Anaerobic Blood Culture Received Blood Peripheral Pending Result Diagram: 01/05/17 0539 01/05/17 0539 Imaging RADIOLOGY STUDIES/FILMS REVIEWED Chest X-Ray 01/05/17 0600 Signed Impressions: Service Date/Time: Thursday, January 05, 2017 05:25 - CONCLUSION: Persistent left lower lobe consolidation. Gautam Mary MD Chest CT 01/05/17 0000 Signed Impressions: Service Date/Time: Thursday, January 05, 2017 12:41 - CONCLUSION: Left base chest tube with some residual consolidative change, dependent fluid and loculated fluid. Minimal changes in the right lung. Giovanni Talbot MD Abdomen/Pelvis CT 01/05/17 0000 Signed Impressions: Service Date/Time: Thursday, January 05, 2017 12:44 - CONCLUSION: No acute CT findings in the abdomen or pelvis. Giovanni Talbot MD Consultation 12/24/16 0000 Signed Impressions: Service Date/Time: Saturday, December 24, 2016 00:00 - CONCLUSION: I have discussed the case with doctor Dr Aroldo Vera MD FACR Head CT 12/22/16 0000 Signed Impressions: Service Date/Time: Thursday, December 22, 2016 12:51 - CONCLUSION: 1. No acute intracranial abnormality. Derick Vera MD Pelvis X-Ray 12/19/16 1518 Signed Impressions: Service Date/Time: Monday, December 19, 2016 15:21 - CONCLUSION: Intact pelvis. Giovanni Pradhan MD Cervical Spine CT 12/19/16 1518 Signed Impressions: Service Date/Time: Monday, December 19, 2016 16:42 - CONCLUSION: No fracture or subluxation of the cervical spine. Degenerative changes at C5/C6 and C6/C7 as above. Giovanni Pradhan MD Assessment and Plan Assessment and Plan IMPRESSION New fever with leukocytosis, source - his CT is showing improvement in L side, with decreased effusion and residual conssolidation - he is not having any PNA complaints - no central line - no complaints and no foster, UA not done yet - no diarrhea, no N/V S/P fall with multiple rib fx L, and pulmonary contusion and hemothorax DM Known Bipolar disorder, anxiety RECOMMENDATION Agree with current management Agree with empiric Abx: - will increase Zosyn to PSAE dosing - continue Vanco and will ask pharm to do dosing Follow C/S Follow CBC Monitor progress I will follow along with you Thank you for this consultation Discussed Condition With Explained plan to patient and Abbey Ayala MD Jan 05, 2017 16:47
[2017-01-05 18:13] LABS: BLOOD, URINE NEG (NEG); COMMENT (UR) CULT NOT INDICATED; CULTURE IF INDICATED CULT NOT INDICATED; GLUCOSE,URINE TRACE mg/dL (NEG); KETONE, URINE NEG (NEG); NITRITE,URINE NEG (NEG); URINE COLOR YELLOW (YELLW/STRAW)
[2017-01-05] MEDS: VANCOMYCIN 1,500 MG/NS 500 ML IV SCH ×2 (20:18)
[2017-01-05] MEDS: MAGNESIUM HYDROXIDE SUSP 30 ML CUP PO SCH (20:19)
[2017-01-05] MEDS: FAMOTIDINE 20 MG TAB PO SCH (20:21)
[2017-01-05] MEDS: SODIUM CHLOR 0.9% 1000 ML INJ 1,000 ML IV SCH (20:41)
[2017-01-05 21:53] LABS: AUTOMATED NEUTROPHIL # 13.4 TH/MM3 (1.8-7.7); BASOPHIL % 0.1 % (0.0-2.0); EOSINOPHIL # 0.3 TH/MM3 (0-0.4); EOSINOPHIL % 1.7 % (0.0-4.0); LYMPH % 4.8 % (9.0-44.0); LYMPHOCYTE # 0.8 TH/MM3 (1.0-4.8); MEAN CORPUSCULAR HEMOGLOBIN 25.9 PG (27.0-34.0); MONO % 8.1 % (0.0-8.0); NEUT % 85.3 % (16.0-70.0); PLATELET COUNT 713 TH/MM3 (150-450); RED BLOOD COUNT 3.59 MIL/MM3 (4.50-5.90); RED CELL DISTRIBUTION WIDTH 15.1 % (11.6-17.2); WHITE BLOOD COUNT 15.7 TH/MM3 (4.0-11.0)
[2017-01-05 21:54] LABS: HEMO FLAGS AUTO DIFF
[2017-01-05 22:43] LABS: SCAN/DIFF AUTO DIFF CONFIRMED
[2017-01-05 22:44] LABS: PLATELET ESTIMATE SMEAR HIGH (NORMAL); PLATELET MORPHOLOGY NORMAL (NORMAL)
[2017-01-05] MEDS: PIPERACIL-TAZO 4.5 GM PREMIX 100 ML IV SCH (23:36)
[2017-01-06] VITALS (7 sets, daily range): BP systolic 116–148; BP diastolic 64–72; PULSE 95–104; RESP 16–20; TEMP 96.1–97.9; O2SAT 90–94
[2017-01-06] MEDS: INSULIN NovoLIN REGULAR SUPPLEMENTAL SCALE SQ SCH ×4 (06:00→21:00)
[2017-01-06] MEDS: PIPERACIL-TAZO 4.5 GM PREMIX 100 ML IV SCH ×3 (06:06→22:22)
[2017-01-06] MEDS: METHOCARBAMOL 500 MG TAB PO SCH ×3 (06:06→22:20)
[2017-01-06 06:31] LABS: AUTOMATED NEUTROPHIL # 8.5 TH/MM3 (1.8-7.7); BASOPHIL % 0.2 % (0.0-2.0); EOSINOPHIL # 0.5 TH/MM3 (0-0.4); EOSINOPHIL % 4.6 % (0.0-4.0); HEMATOCRIT 26.3 % (39.0-51.0); LYMPH % 10.2 % (9.0-44.0); LYMPHOCYTE # 1.1 TH/MM3 (1.0-4.8); MEAN CELL VOLUME 80.2 FL (80.0-100.0); MEAN CORPUSCULAR HEMOGLOBIN 25.9 PG (27.0-34.0); MEAN CORPUSCULAR HGB CONC 32.3 % (32.0-36.0); MONO % 9.1 % (0.0-8.0); NEUT % 75.9 % (16.0-70.0); PLATELET COUNT 688 TH/MM3 (150-450); RED BLOOD COUNT 3.29 MIL/MM3 (4.50-5.90); RED CELL DISTRIBUTION WIDTH 14.5 % (11.6-17.2); WHITE BLOOD COUNT 11.2 TH/MM3 (4.0-11.0)
[2017-01-06 06:35] LABS: HEMO FLAGS AUTO DIFF
[2017-01-06 07:02] LABS: ALT (GPT) 52 U/L (12-78); ANION GAP 7 MEQ/L (5-15); AST (GOT) 27 U/L (15-37); BICARBONATE 28.4 MEQ/L (21.0-32.0); BLOOD UREA NITROGEN 8 MG/DL (7-18); CHLORIDE 102 MEQ/L (98-107); GLOMERULAR FILTRATION RATE 151 ML/MIN (>89); POTASSIUM 3.4 MEQ/L (3.5-5.1); SODIUM (NA) 137 MEQ/L (136-145)
[2017-01-06 07:04] LABS: ALKALINE PHOSPHATASE 157 U/L (45-117); TOTAL BILIRUBIN ADULT 0.4 MG/DL (0.2-1.0)
--- NOTE | 2017-01-06 07:24 | RADRPT ---
EXAM DATE/TIME: 01/06/2017 06:05 [facility] COMPARISON: CHEST SINGLE AP, January 05, 2017, 5:25. INDICATIONS : Short of breath, pain left chest, evaluate infiltrate MEDICAL HISTORY : Cardiovascular disease. left rib fractures SURGICAL HISTORY : Cholecystectomy. ENCOUNTER: Subsequent ACUITY: 2 weeks PAIN SCORE: Non-responsive. LOCATION: Left FINDINGS: Left chest drainage tube remains projected over the mid left chest. Persistent consolidation in the left mid and lower lung with loss of delineation of the entire left hemidiaphragm. Left rib fracture s. No evidence of pneumothorax. The right lung is clear. CONCLUSION: Stable left lower lobe consolidation. No pneumothorax seen. Gautam Mary MD on January 06, 2017 at 7:21 Board Certified Radiologist. This report was verified electronically.
[2017-01-06] MEDS ORDERED: POTASSIUM CHLORIDE 10 MEQ CONTROLLED RELEASE TAB PO ONE (07:30)
[2017-01-06] MEDS: VANCOMYCIN 1,500 MG/NS 500 ML IV SCH ×4 (08:24→21:00)
[2017-01-06] MEDS: LACTULOSE SYRUP 20 GM/30 ML CUP PO SCH (08:24)
[2017-01-06] MEDS: metFORMIN HCL 500 MG TAB PO SCH ×2 (08:25→17:06)
[2017-01-06] MEDS: QUEtiapine FUMARATE 200 MG TAB PO SCH ×2 (08:25→22:20)
[2017-01-06] MEDS: DOCUSATE SODIUM 100 MG CAP PO SCH ×2 (08:26→22:23)
[2017-01-06] MEDS: lamoTRIgine 100 MG TAB PO SCH ×2 (08:26→22:18)
[2017-01-06] MEDS: FENOFIBRATE 48 MG TAB PO SCH (08:26)
[2017-01-06] MEDS: GABAPENTIN 300 MG CAP PO SCH ×2 (08:26→22:20)
[2017-01-06] MEDS: LORazepam 1 MG TAB PO PRN ×2 (08:26→17:06)
[2017-01-06] MEDS: FLUoxetine HCL 20 MG CAP PO SCH (08:26)
[2017-01-06] MEDS: LIDOCAINE HCL 5% PATCH T-DERMAL SCH (08:28)
[2017-01-06] MEDS: FLUTICASONE PROPIONATE 50 MCG/ACT 16 GM NASAL SPRAY NASAL SCH ×2 (08:28→22:25)
[2017-01-06] MEDS: SODIUM CHLOR 0.9% 1000 ML INJ 1,000 ML IV SCH ×2 (08:29→17:07)
[2017-01-06 08:45] LABS: BANDS 8 % (0-6); EOSINOPHILS 3 % (0-4); MYELOCYTES 2 % (0-0); NEUTROPHIL # MANUAL DIFF 9.5 TH/MM3 (1.8-7.7); OVALOCYTES 1+ (NORMAL); PLATELET ESTIMATE SMEAR HIGH (NORMAL); PLATELET MORPHOLOGY CLUMPED (NORMAL); POLYS (SEG NEUTROPHILS) 75 % (16-70); SCAN/DIFF FINAL DIFF MANUAL; WBC DIFF SAMPLE 100
[2017-01-06] MEDS: BACITRACIN TOP OINT 15 GM TUBE TOP SCH (09:00)
[2017-01-06] MEDS: ENOXAPARIN SODIUM 30 MG/0.3 ML SYRINGE SQ SCH (11:59)
--- NOTE | 2017-01-06 12:16 | HHI.PR ---
Subjective Subjective Notes Complains of abdominal pain. Denies N/V Lethargic Objective Vitals/I&O Vital Signs Date Time Temp Pulse Resp B/P Pulse Ox O2 Delivery O2 Flow Rate FiO2 01/06/17 11:34 90 Nasal Cannula 4.00 01/06/17 08:00 97.5 102 17 116/66 Labs Laboratory Tests Test 01/05/17 01/05/17 01/06/17 18:00 20:45 05:34 Urine Color YELLOW Urine Turbidity CLEAR Urine pH 7.0 Urine Specific [place] 1.037 Urine Protein 30 Urine Glucose (UA) TRACE Urine Ketones NEG Urine Occult Blood NEG Urine Nitrite NEG Urine Bilirubin NEG Urine Urobilinogen LESS THAN 2.0 Urine Leukocyte Esterase NEG Urine WBC 1 Microscopic Urinalysis Comment CULT NOT INDICATED White Blood Count 15.7 11.2 Red Blood Count 3.59 3.29 Hemoglobin 9.3 8.5 Hematocrit 29.0 26.3 Mean Corpuscular Volume 81.0 80.2 Mean Corpuscular Hemoglobin 25.9 25.9 Mean Corpuscular Hemoglobin 32.0 32.3 Concent Red Cell Distribution Width 15.1 14.5 Platelet Count 713 688 Mean Platelet Volume 6.2 6.2 Neutrophils (%) (Auto) 85.3 75.9 Lymphocytes (%) (Auto) 4.8 10.2 Monocytes (%) (Auto) 8.1 9.1 Eosinophils (%) (Auto) 1.7 4.6 Basophils (%) (Auto) 0.1 0.2 Neutrophils # (Auto) 13.4 8.5 Lymphocytes # (Auto) 0.8 1.1 Monocytes # (Auto) 1.3 1.0 Eosinophils # (Auto) 0.3 0.5 Basophils # (Auto) 0.0 0.0 CBC Comment AUTO DIFF AUTO DIFF Differential Comment AUTO DIFF FINAL DIFF CONFIRMED MANUAL Platelet Estimate HIGH HIGH Platelet Morphology Comment NORMAL CLUMPED Differential Total Cells 100 Counted Neutrophils % (Manual) 75 Band Neutrophils % 8 Lymphocytes % 6 Monocytes % 6 Eosinophils % 3 Neutrophils # (Manual) 9.5 Myelocytes 2 Ovalocytes 1+ Sodium Level 137 Potassium Level 3.4 Chloride Level 102 Carbon Dioxide Level 28.4 Anion Gap 7 Blood Urea Nitrogen 8 Creatinine 0.56 Estimat Glomerular Filtration 151 Rate Random Glucose 101 Calcium Level 9.0 Total Bilirubin 0.4 Aspartate Amino Transf 27 (AST/SGOT) Alanine Aminotransferase 52 (ALT/SGPT) Alkaline Phosphatase 157 Total Protein 6.9 Albumin 2.7 Date/Time Procedure Status Source Growth 01/05/17 13:35 Aerobic Blood Culture - Preliminary Resulted Blood Peripheral NO GROWTH IN 1 DAY 01/05/17 13:35 Anaerobic Blood Culture - Preliminary Resulted Blood Peripheral NO GROWTH IN 1 DAY Radiology Last Impressions Chest X-Ray 01/04/17 0600 Signed Impressions: Service Date/Time: Wednesday, January 04, 2017 05:21 - CONCLUSION: Persistent consolidation left lower lobe. No pneumothorax. Small right pleural effusion. Gautam Mary MD Consultation 12/24/16 0000 Signed Impressions: Service Date/Time: Saturday, December 24, 2016 00:00 - CONCLUSION: I have discussed the case with doctor Dr Aroldo Vera MD FACR Chest CT 12/24/16 0000 Signed Impressions: Service Date/Time: Saturday, December 24, 2016 11:19 - CONCLUSION: Increasing large left pleural effusion. Significant consolidative changes are evident as well. Aroldo Vera MD FACR Head CT 12/22/16 0000 Signed Impressions: Service Date/Time: Thursday, December 22, 2016 12:51 - CONCLUSION: 1. No acute intracranial abnormality. Derick Vera MD Pelvis X-Ray 12/19/16 1518 Signed Impressions: Service Date/Time: Monday, December 19, 2016 15:21 - CONCLUSION: Intact pelvis. Giovanni Pradhan MD Cervical Spine CT 12/19/16 1518 Signed Impressions: Service Date/Time: Monday, December 19, 2016 16:42 - CONCLUSION: No fracture or subluxation of the cervical spine. Degenerative changes at C5/C6 and C6/C7 as above. Giovanni Pradhan MD Abdomen/Pelvis CT 12/19/16 1518 Signed Impressions: Service Date/Time: Monday, December 19, 2016 16:51 - CONCLUSION: No evidence of acute trauma of the abdomen or pelvis. Enlarged and mild fatty infiltrated liver. Giovanni Pradhan MD Narrative Exam GENERAL: 56-year-old obese male sitting OOB in chair. SKIN: Warm and dry. Patient appears pale. HEAD: Normocephalic. NECK: Trachea midline. No JVD. CARDIOVASCULAR: Regular rate and rhythm. RESPIRATORY: No accessory muscle use. Lungs diminished to auscultation in all hughes. Left lateral chest tube in place secured to water seal with sanguinous drainage noted. No air leak. GASTROINTESTINAL: Abdomen soft, distended, nontender. + BS MUSCULOSKELETAL: Extremities without cyanosis, or edema. NEUROLOGICAL: Awake and alert. Normal speech. A/P Problem List: (1) Fall from ladder (2) Pulmonary contusion (3) Multiple rib fractures Assessment and Plan INJURIES LEFT rib fx (5-9) LEFT lung contusion 12/24: LEFT CT placed for hemothorax Diet: Clear liquids Pulmonary: IS. EZpap. nebs. Pain: Percocet. Dilaudid IV. Robaxin. Lidoderm patch. Activity: OOB. PT evaluating. No home needs. GI: Protonix PO Bowel: Colace. MOM. Lactulose. LBM 01/04. Dulcolax [place] x1 repeat in 4 hours if no BM. DVT: SCD's. Lovenox 30 BID, Add 325 ASA for elevated platelets Left rib fractures, Left lung contusion Pulmonary toileting Pain control Supportive care 12/24: LEFT CT placed for hemothorax Chest tube with 30mL of drainage out overnight CT chest yesterday shows a small loculated area and LLL atelectasis. No surgical intervention warranted CT abdomen shows narcotic related ileus. Dulcolax [place] x1 repeat in 4 hours if no BM. OOB- PT Leukocytosis ID consulted, appreciate recommendations Blood cxs negative 1 day UA negative Continue IVF Zosyn and Vanco IV Monitor fevers and CBC Plan of care discussed with patient at bedside. Case management consulted to assist discharge planning. Problem Qualifiers (1) Fall from ladder: Qualified Code: W11.XXXA - Fall from ladder, initial encounter (2) Pulmonary contusion: Qualified Code: S27.321A - Contusion of left lung, initial encounter (3) Multiple rib fractures: Qualified Code: S22.42XA - Closed fracture of multiple ribs of left side, initial encounter Pelon Boyer Jan 06, 2017 12:15 Pelon Boyer Jan 06, 2017 12:15
--- NOTE | 2017-01-06 13:02 | HHI.IDPN ---
Subjective Subjective Remarks Patient is a 56-year-old male, admitted to the hospital December 20 as a trauma alert. He was apparently cutting down some tree branches and he was up in a 13 foot ladder when the branch swing and hit the ladder and not the ladder out from under him. He fell and lost his balance. There was no loss of consciousness. He started experiencing pain on his left chest, and back. Evaluation in the ED showed evidence of multiple rib fractures on the left side from rib 5-9, with pulmonary contusion. He has good oxygen saturation. He was being manage for his pain control. Starting December 22 he started having problem with intermittent confusion, tachycardia, and hypoxemia. Over the next several days his respiratory status did not improve, and repeat CT showed increasing effusion on the left side. He had placement of a chest tube on the left side with drainage of 1.7 L of old blood. Had the chest tube since. His main complaint is the pain on the left side. Last night he spiked a temperature to 101, and his WBC went up to 17,000 today. Patient is also now complaining of abdominal pain. He underwent CT of the chest which showed significant improvement in the effusion, with some residual consolidative changes on the left side. CT of the abdomen and pelvis did not show any significant pathology. Patient has not had any diarrhea. He has not had any nausea or vomiting. Patient denies any congestion or significant cough. He denies any urinary complaints. Patient does not have any central line. Notes reviewed Temps better WBC better C/O abdominal pain No BM BC negative UA ok CXR stable L consolidation Not much coming out from his CT - bloody Antibiotics Zosyn Vancomycin Lines PIV Past Medical History Bipolar disorder Anxiety Diabetes Past Surgical History Right ankle surgery Right arm surgery Cholecystectomy Allergies: Coded Allergies: CRESTOR (Verified Allergy, Intermediate, 12/19/16) Invega Sustenna (Verified Allergy, Intermediate, 12/19/16) [place] (Verified Allergy, Intermediate, 12/19/16) Omeprazole (Verified Allergy, Intermediate, 12/19/16) Risperdal (Verified Allergy, Intermediate, 12/19/16) Tramadol (Verified Allergy, Mild, 12/19/16) Objective . Vital Signs Date Time Temp Pulse Resp B/P Pulse Ox O2 Delivery O2 Flow Rate FiO2 01/06/17 12:00 96.9 104 17 128/72 90 01/06/17 11:34 90 Nasal Cannula 4.00 01/06/17 08:30 Nasal Cannula 5.00 01/06/17 08:00 97.5 102 17 116/66 90 01/06/17 00:40 22 01/06/17 00:00 97.8 100 16 148/64 92 01/05/17 20:00 92 Nasal Cannula 5.00 01/05/17 20:00 97.0 104 16 130/77 92 01/05/17 17:55 Nasal Cannula 4.00 01/05/17 16:00 97.0 94 18 109/69 95 01/05/17 01/05/17 01/06/17 15:00 23:00 07:00 Intake Total 120 ml 0 ml 800 ml Output Total 430 ml 450 ml 300 ml Balance -310 ml -450 ml 500 ml Intake Oral 120 ml 0 ml 0 ml IV Total 800 ml Output Urine Total 400 ml 450 ml 300 ml Chest Tube Drainage Total 30 ml # Bowel Movements 0 0 . Laboratory Tests Test 01/05/17 01/05/17 01/06/17 05:39 20:45 05:34 White Blood Count 17.0 TH/MM3 15.7 TH/MM3 11.2 TH/MM3 Red Blood Count 3.72 MIL/MM3 3.59 MIL/MM3 3.29 MIL/MM3 Hemoglobin 9.9 GM/DL 9.3 GM/DL 8.5 GM/DL Hematocrit 30.4 % 29.0 % 26.3 % Mean Corpuscular Volume 81.8 FL 81.0 FL 80.2 FL Mean Corpuscular Hemoglobin 26.5 PG 25.9 PG 25.9 PG Mean Corpuscular Hemoglobin 32.5 % 32.0 % 32.3 % Concent Red Cell Distribution Width 15.0 % 15.1 % 14.5 % Platelet Count 730 TH/MM3 713 TH/MM3 688 TH/MM3 Mean Platelet Volume 6.1 FL 6.2 FL 6.2 FL Neutrophils (%) (Auto) 83.5 % 85.3 % 75.9 % Lymphocytes (%) (Auto) 5.2 % 4.8 % 10.2 % Monocytes (%) (Auto) 8.3 % 8.1 % 9.1 % Eosinophils (%) (Auto) 2.9 % 1.7 % 4.6 % Basophils (%) (Auto) 0.1 % 0.1 % 0.2 % Neutrophils # (Auto) 14.2 TH/MM3 13.4 TH/MM3 8.5 TH/MM3 Lymphocytes # (Auto) 0.9 TH/MM3 0.8 TH/MM3 1.1 TH/MM3 Monocytes # (Auto) 1.4 TH/MM3 1.3 TH/MM3 1.0 TH/MM3 Eosinophils # (Auto) 0.5 TH/MM3 0.3 TH/MM3 0.5 TH/MM3 Basophils # (Auto) 0.0 TH/MM3 0.0 TH/MM3 0.0 TH/MM3 CBC Comment DIFF FINAL AUTO DIFF AUTO DIFF Differential Comment AUTO DIFF FINAL DIFF CONFIRMED MANUAL Platelet Estimate HIGH HIGH Platelet Morphology Comment NORMAL CLUMPED Differential Total Cells 100 Counted Neutrophils % (Manual) 75 % Band Neutrophils % 8 % Lymphocytes % 6 % Monocytes % 6 % Eosinophils % 3 % Neutrophils # (Manual) 9.5 TH/MM3 Myelocytes 2 % Ovalocytes 1+ Laboratory Tests Test 01/05/17 01/06/17 05:39 05:34 Sodium Level 133 MEQ/L 137 MEQ/L Potassium Level 3.8 MEQ/L 3.4 MEQ/L Chloride Level 101 MEQ/L 102 MEQ/L Carbon Dioxide Level 24.6 MEQ/L 28.4 MEQ/L Anion Gap 7 MEQ/L 7 MEQ/L Blood Urea Nitrogen 10 MG/DL 8 MG/DL Creatinine 0.70 MG/DL 0.56 MG/DL Estimat Glomerular Filtration 117 ML/MIN 151 ML/MIN Rate Random Glucose 143 MG/DL 101 MG/DL Calcium Level 9.0 MG/DL 9.0 MG/DL Total Bilirubin 0.6 MG/DL 0.4 MG/DL Aspartate Amino Transf 16 U/L 27 U/L (AST/SGOT) Alanine Aminotransferase 34 U/L 52 U/L (ALT/SGPT) Alkaline Phosphatase 151 U/L 157 U/L Total Protein 7.0 GM/DL 6.9 GM/DL Albumin 3.0 GM/DL 2.7 GM/DL Microbiology Date/Time Procedure Status Source Growth 01/05/17 13:29 Aerobic Blood Culture - Preliminary Resulted Blood Peripheral NO GROWTH IN 1 DAY 01/05/17 13:29 Anaerobic Blood Culture - Preliminary Resulted Blood Peripheral NO GROWTH IN 1 DAY 01/05/17 13:35 Aerobic Blood Culture - Preliminary Resulted Blood Peripheral NO GROWTH IN 1 DAY 01/05/17 13:35 Anaerobic Blood Culture - Preliminary Resulted Blood Peripheral NO GROWTH IN 1 DAY Imaging Last Impressions Chest X-Ray 01/06/17 0600 Signed Impressions: Service Date/Time: December 06:05 - CONCLUSION: Stable left lower lobe consolidation. No pneumothorax seen. Gautam Mary MD Chest CT 01/05/17 0000 Signed Impressions: Service Date/Time: Thursday, January 05, 2017 12:41 - CONCLUSION: Left base chest tube with some residual consolidative change, dependent fluid and loculated fluid. Minimal changes in the right lung. Giovanni Talbot MD Abdomen/Pelvis CT 01/05/17 0000 Signed Impressions: Service Date/Time: Thursday, January 05, 2017 12:44 - CONCLUSION: No acute CT findings in the abdomen or pelvis. Giovanni Talbot MD Consultation 12/24/16 0000 Signed Impressions: Service Date/Time: Saturday, December 24, 2016 00:00 - CONCLUSION: I have discussed the case with doctor Dr Aroldo Vera MD FACR Head CT 12/22/16 0000 Signed Impressions: Service Date/Time: Thursday, December 22, 2016 12:51 - CONCLUSION: 1. No acute intracranial abnormality. Derick Vera MD Pelvis X-Ray 12/19/16 1518 Signed Impressions: Service Date/Time: Monday, December 19, 2016 15:21 - CONCLUSION: Intact pelvis. Giovanni Pradhan MD Cervical Spine CT 12/19/16 1518 Signed Impressions: Service Date/Time: Monday, December 19, 2016 16:42 - CONCLUSION: No fracture or subluxation of the cervical spine. Degenerative changes at C5/C6 and C6/C7 as above. Giovanni Pradhan MD Physical Exam GENERAL: Patient is an obese, well-developed CM, awakens easily, not in respiratory distress. SKIN: Warm and dry. No generalized rash, no ecchymoses and no evidence of embolic lesions. IV sites look ok with no evidence of infection HEAD: Atraumatic. Normocephalic. No temporal wasting, or tenderness. EYES: [place] conjunctiva. No petechia or hemorrhage. Pupils equal, round and reactive to light. Extraocular movements full and intact. No scleral icterus. No injection or drainage. EARS, NOSE AND THROAT: Nose without bleeding or purulent nasal discharge. No sinus tenderness. Mucous membranes pink and moist. No oral lesions noted. No exudate. No oral thrush. NECK: Trachea midline. Supple and not tender, no meningeal signs CARDIOVASCULAR: Regular rate and rhythm. No murmurs, rubs or gallops heard RESPIRATORY: Clear to auscultation on R, decreased BS on L. CT on L side, has bloody output, not a lot ABDOMEN: Globular, distended, with diffuse tenderness. No guarding or rebound. Bowel sounds present and normoactive. No organomegaly. EXTREMITIES: No clubbing, cyanosis, or edema. No joint effusion, has good ROM. No calf tenderness. Well perfused and warm. NEUROLOGICAL: Awake and alert. Cranial nerves grossly intact. Motor grossly within normal limits. PSYCHIATRIC: Normal affect, calm and cooperative. LINE: No evidence of infection Assessment & Plan Remarks IMPRESSION New fever with leukocytosis, source? - his CT is showing improvement in L side, with decreased effusion and residual consolidation - he is not having any PNA complaints - no central line - no complaints and no foster, UA not done yet - no diarrhea, no N/V S/P fall with multiple rib fx L, and pulmonary contusion and hemothorax DM Known Bipolar disorder, anxiety RECOMMENDATION Continue Zosyn for GNR coverage Continue Vanco for GPC coverage Follow C/S Follow CBC Monitor temps Will deescalate Abx once C/S available Monitor progress Abbey Ayala MD Jan 06, 2017 13:02
[2017-01-06] MEDS ORDERED: BISACODYL 10 MG SUPP RECTAL ONE (13:45)
[2017-01-06] MEDS: ASPIRIN 325 MG TAB PO SCH (15:03)
[2017-01-06] MEDS: HYDROmorphone HCL 2 MG TAB PO PRN (15:04)
[2017-01-06] MEDS: MAGNESIUM HYDROXIDE SUSP 30 ML CUP PO SCH (22:20)
[2017-01-06] MEDS: FAMOTIDINE 20 MG TAB PO SCH (22:20)
[2017-01-07] VITALS (8 sets, daily range): BP systolic 108–147; BP diastolic 56–82; PULSE 82–115; RESP 18–20; TEMP 96.3–98.3; O2SAT 89–95
[2017-01-07] MEDS: IBUPROFEN 400 MG TAB PO PRN (01:11)
[2017-01-07] MEDS: HYDROmorphone HCL 2 MG TAB PO PRN ×2 (01:11→20:08)
[2017-01-07] MEDS: ENOXAPARIN SODIUM 30 MG/0.3 ML SYRINGE SQ SCH ×2 (01:13→15:13)
[2017-01-07] MEDS: METHOCARBAMOL 500 MG TAB PO SCH ×3 (05:09→20:09)
[2017-01-07] MEDS: PIPERACIL-TAZO 4.5 GM PREMIX 100 ML IV SCH (05:10)
[2017-01-07 06:10] LABS: BASOPHIL % 0.4 % (0.0-2.0); EOSINOPHIL # 0.5 TH/MM3 (0-0.4); EOSINOPHIL % 5.1 % (0.0-4.0); HEMATOCRIT 26.1 % (39.0-51.0); HEMO FLAGS DIFF FINAL; LYMPHOCYTE # 1.4 TH/MM3 (1.0-4.8); MEAN CORPUSCULAR HEMOGLOBIN 26.1 PG (27.0-34.0); MEAN CORPUSCULAR HGB CONC 32.6 % (32.0-36.0); MONO % 11.2 % (0.0-8.0); NEUT % 67.3 % (16.0-70.0); PLATELET COUNT 652 TH/MM3 (150-450); RED BLOOD COUNT 3.26 MIL/MM3 (4.50-5.90); RED CELL DISTRIBUTION WIDTH 15.1 % (11.6-17.2)
[2017-01-07 06:36] LABS: ALT (GPT) 60 U/L (12-78); ANION GAP 8 MEQ/L (5-15); AST (GOT) 41 U/L (15-37); BICARBONATE 26.7 MEQ/L (21.0-32.0); BLOOD UREA NITROGEN 6 MG/DL (7-18); CHLORIDE 105 MEQ/L (98-107); GLOMERULAR FILTRATION RATE 165 ML/MIN (>89); POTASSIUM 3.7 MEQ/L (3.5-5.1); SODIUM (NA) 140 MEQ/L (136-145)
[2017-01-07 06:39] LABS: ALKALINE PHOSPHATASE 179 U/L (45-117); TOTAL BILIRUBIN ADULT 0.4 MG/DL (0.2-1.0)
[2017-01-07] MEDS: INSULIN NovoLIN REGULAR SUPPLEMENTAL SCALE SQ SCH ×3 (07:00→20:15)
[2017-01-07] MEDS: LORazepam 1 MG TAB PO PRN ×2 (08:14→20:09)
[2017-01-07] MEDS ORDERED: PHARMACY ORDERED LAB ONE (08:45)
--- NOTE | 2017-01-07 09:34 | HHI.PR ---
Objective Vitals/I&O Vital Signs Date Time Temp Pulse Resp B/P Pulse Ox O2 Delivery O2 Flow Rate FiO2 01/07/17 08:00 97.5 88 18 139/67 93 01/06/17 20:12 4.00 01/06/17 20:00 Nasal Cannula Labs Laboratory Tests Test 01/07/17 05:28 White Blood Count 9.0 Red Blood Count 3.26 Hemoglobin 8.5 Hematocrit 26.1 Mean Corpuscular Volume 80.0 Mean Corpuscular Hemoglobin 26.1 Mean Corpuscular Hemoglobin 32.6 Concent Red Cell Distribution Width 15.1 Platelet Count 652 Mean Platelet Volume 6.3 Neutrophils (%) (Auto) 67.3 Lymphocytes (%) (Auto) 16.0 Monocytes (%) (Auto) 11.2 Eosinophils (%) (Auto) 5.1 Basophils (%) (Auto) 0.4 Neutrophils # (Auto) 6.0 Lymphocytes # (Auto) 1.4 Monocytes # (Auto) 1.0 Eosinophils # (Auto) 0.5 Basophils # (Auto) 0.0 CBC Comment DIFF FINAL Differential Comment Sodium Level 140 Potassium Level 3.7 Chloride Level 105 Carbon Dioxide Level 26.7 Anion Gap 8 Blood Urea Nitrogen 6 Creatinine 0.52 Estimat Glomerular Filtration 165 Rate Random Glucose 87 Calcium Level 9.2 Total Bilirubin 0.4 Aspartate Amino Transf 41 (AST/SGOT) Alanine Aminotransferase 60 (ALT/SGPT) Alkaline Phosphatase 179 Total Protein 6.7 Albumin 2.5 Date/Time Procedure Status Source Growth 01/05/17 13:35 Aerobic Blood Culture - Preliminary Resulted Blood Peripheral NO GROWTH IN 1 DAY 01/05/17 13:35 Anaerobic Blood Culture - Preliminary Resulted Blood Peripheral NO GROWTH IN 1 DAY Radiology Last Impressions Chest X-Ray 01/04/17 0600 Signed Impressions: Service Date/Time: Wednesday, January 04, 2017 05:21 - CONCLUSION: Persistent consolidation left lower lobe. No pneumothorax. Small right pleural effusion. Gautam Mary MD Consultation 12/24/16 0000 Signed Impressions: Service Date/Time: Saturday, December 24, 2016 00:00 - CONCLUSION: I have discussed the case with doctor Dr Aroldo Vera MD FACR Chest CT 12/24/16 0000 Signed Impressions: Service Date/Time: Saturday, December 24, 2016 11:19 - CONCLUSION: Increasing large left pleural effusion. Significant consolidative changes are evident as well. Aroldo Vera MD FACR Head CT 12/22/16 0000 Signed Impressions: Service Date/Time: Thursday, December 22, 2016 12:51 - CONCLUSION: 1. No acute intracranial abnormality. Derick Vera MD Pelvis X-Ray 12/19/16 1518 Signed Impressions: Service Date/Time: Monday, December 19, 2016 15:21 - CONCLUSION: Intact pelvis. Giovanni Pradhan MD Cervical Spine CT 12/19/16 1518 Signed Impressions: Service Date/Time: Monday, December 19, 2016 16:42 - CONCLUSION: No fracture or subluxation of the cervical spine. Degenerative changes at C5/C6 and C6/C7 as above. Giovanni Pradhan MD Abdomen/Pelvis CT 12/19/16 1518 Signed Impressions: Service Date/Time: Monday, December 19, 2016 16:51 - CONCLUSION: No evidence of acute trauma of the abdomen or pelvis. Enlarged and mild fatty infiltrated liver. Giovanni Pradhan MD Narrative Exam GENERAL: 56-year-old obese male sitting at the side of the bed. SKIN: Warm and dry. Patient appears pale. HEAD: Normocephalic. NECK: Trachea midline. No JVD. CARDIOVASCULAR: Regular rate and rhythm. RESPIRATORY: No accessory muscle use. Lungs diminished to auscultation in all hug[place]. Left lateral chest tube in place secured to water seal with sanguinous drainage noted. No air leak. GASTROINTESTINAL: Abdomen slightly firm, distended, tender to palpation in left upper quadrant. + BS MUSCULOSKELETAL: Extremities without cyanosis, or edema. NEUROLOGICAL: Awake and alert. Normal speech. A/P Problem List: (1) Fall from ladder (2) Pulmonary contusion (3) Multiple rib fractures Assessment and Plan INJURIES LEFT rib fx (5-9) LEFT lung contusion 12/24: LEFT CT placed for hemothorax Diet: Clear liquids Pulmonary: IS. EZpap. nebs. Pain: Percocet. Dilaudid IV. Robaxin. Lidoderm patch. Activity: OOB. PT evaluating. No home needs. GI: Protonix PO Bowel: Colace. MOM. Lactulose. LBM 01/04. Dulcolax NC x1 repeat in 4 hours if no BM. DVT: SCD's. Lovenox 30 BID, Add 325 ASA for elevated platelets Left rib fractures, Left lung contusion Pulmonary toileting Pain control Supportive care 12/24: LEFT CT placed for hemothorax Chest tube with 30mL of drainage out overnight CT chest yesterday shows a small loculated area and LLL atelectasis. No surgical intervention warranted CT abdomen shows narcotic related ileus. Dulcolax NC x1 repeat in 4 hours if no BM. OOB- PT Leukocytosis ID consulted, appreciate recommendations Blood cxs pending UA negative Continue IVF Zosyn and Vanco IV Monitor fevers and CBC Plan of care discussed with patient at bedside. Case management consulted to assist discharge planning. Problem Qualifiers (1) Fall from ladder: Qualified Code: W11.XXXA - Fall from ladder, initial encounter (2) Pulmonary contusion: Qualified Code: S27.321A - Contusion of left lung, initial encounter (3) Multiple rib fractures: Qualified Code: S22.42XA - Closed fracture of multiple ribs of left side, initial encounter Pelon Boyer Jan 07, 2017 09:34
[2017-01-07] MEDS: FLUoxetine HCL 20 MG CAP PO SCH (09:48)
[2017-01-07] MEDS: metFORMIN HCL 500 MG TAB PO SCH ×2 (09:48→20:12)
[2017-01-07] MEDS: FENOFIBRATE 48 MG TAB PO SCH (09:49)
[2017-01-07] MEDS: lamoTRIgine 100 MG TAB PO SCH ×2 (09:49→20:09)
[2017-01-07] MEDS: GABAPENTIN 300 MG CAP PO SCH ×2 (09:50→20:09)
[2017-01-07] MEDS: ASPIRIN 325 MG TAB PO SCH (09:50)
[2017-01-07] MEDS: DOCUSATE SODIUM 100 MG CAP PO SCH ×2 (09:50→20:15)
[2017-01-07] MEDS: LACTULOSE SYRUP 20 GM/30 ML CUP PO SCH (09:50)
[2017-01-07] MEDS: FLUTICASONE PROPIONATE 50 MCG/ACT 16 GM NASAL SPRAY NASAL SCH ×2 (09:52→20:14)
[2017-01-07] MEDS: QUEtiapine FUMARATE 200 MG TAB PO SCH ×2 (09:58→20:08)
[2017-01-07] MEDS: LIDOCAINE HCL 5% PATCH T-DERMAL SCH (10:00)
[2017-01-07] MEDS ORDERED: MAGNESIUM CITRATE SOLN 300 ML BTL PO ONE (10:45)
--- NOTE | 2017-01-07 11:10 | HHI.IDPN ---
Subjective Subjective Remarks Patient is a 56-year-old male, admitted to the hospital December 20 as a trauma alert. He was apparently cutting down some tree branches and he was up in a 13 foot ladder when the branch swing and hit the ladder and not the ladder out from under him. He fell and lost his balance. There was no loss of consciousness. He started experiencing pain on his left chest, and back. Evaluation in the ED showed evidence of multiple rib fractures on the left side from rib 5-9, with pulmonary contusion. He has good oxygen saturation. He was being manage for his pain control. Starting December 22 he started having problem with intermittent confusion, tachycardia, and hypoxemia. Over the next several days his respiratory status did not improve, and repeat CT showed increasing effusion on the left side. He had placement of a chest tube on the left side with drainage of 1.7 L of old blood. Had the chest tube since. His main complaint is the pain on the left side. Last night he spiked a temperature to 101, and his WBC went up to 17,000 today. Patient is also now complaining of abdominal pain. He underwent CT of the chest which showed significant improvement in the effusion, with some residual consolidative changes on the left side. CT of the abdomen and pelvis did not show any significant pathology. Patient has not had any diarrhea. He has not had any nausea or vomiting. Patient denies any congestion or significant cough. He denies any urinary complaints. Patient does not have any central line. Notes reviewed Temps better WBC down to normal BC negative C/O pain in lower rib cage L and LUQ, amy when he moves CT L not much output Antibiotics Zosyn Vancomycin Lines PIV Past Medical History Bipolar disorder Anxiety Diabetes Past Surgical History Right ankle surgery Right arm surgery Cholecystectomy Allergies: Coded Allergies: CRESTOR (Verified Allergy, Intermediate, 12/19/16) Invega Sustenna (Verified Allergy, Intermediate, 12/19/16) [place] (Verified Allergy, Intermediate, 12/19/16) Omeprazole (Verified Allergy, Intermediate, 12/19/16) Risperdal (Verified Allergy, Intermediate, 12/19/16) Tramadol (Verified Allergy, Mild, 12/19/16) Objective . Vital Signs Date Time Temp Pulse Resp B/P Pulse Ox O2 Delivery O2 Flow Rate FiO2 01/07/17 08:00 97.5 88 18 139/67 93 01/07/17 05:13 98.3 82 20 108/56 94 01/07/17 00:00 98.2 99 20 134/79 95 01/06/17 20:12 4.00 01/06/17 20:00 93 Nasal Cannula 5.00 01/06/17 20:00 96.1 97 20 119/71 93 01/06/17 16:00 97.9 95 18 116/70 94 01/06/17 12:00 96.9 104 17 128/72 90 01/06/17 11:34 90 Nasal Cannula 4.00 01/06/17 01/06/17 01/07/17 15:00 23:00 07:00 Intake Total 2372 ml 865 ml 439 ml Output Total 10 ml 40 ml 10 ml Balance 2362 ml 825 ml 429 ml Intake Oral 240 ml 120 ml 120 ml IV Total 2132 ml 745 ml 319 ml Output Urine Total 0 ml 0 ml Stool Total 0 ml 0 ml Chest Tube Drainage Total 10 ml Drainage Total 40 ml 10 ml # Voids 1 # Bowel Movements 0 . Laboratory Tests Test 01/05/17 01/06/17 01/07/17 20:45 05:34 05:28 White Blood Count 15.7 TH/MM3 11.2 TH/MM3 9.0 TH/MM3 Red Blood Count 3.59 MIL/MM3 3.29 MIL/MM3 3.26 MIL/MM3 Hemoglobin 9.3 GM/DL 8.5 GM/DL 8.5 GM/DL Hematocrit 29.0 % 26.3 % 26.1 % Mean Corpuscular Volume 81.0 FL 80.2 FL 80.0 FL Mean Corpuscular Hemoglobin 25.9 PG 25.9 PG 26.1 PG Mean Corpuscular Hemoglobin 32.0 % 32.3 % 32.6 % Concent Red Cell Distribution Width 15.1 % 14.5 % 15.1 % Platelet Count 713 TH/MM3 688 TH/MM3 652 TH/MM3 Mean Platelet Volume 6.2 FL 6.2 FL 6.3 FL Neutrophils (%) (Auto) 85.3 % 75.9 % 67.3 % Lymphocytes (%) (Auto) 4.8 % 10.2 % 16.0 % Monocytes (%) (Auto) 8.1 % 9.1 % 11.2 % Eosinophils (%) (Auto) 1.7 % 4.6 % 5.1 % Basophils (%) (Auto) 0.1 % 0.2 % 0.4 % Neutrophils # (Auto) 13.4 TH/MM3 8.5 TH/MM3 6.0 TH/MM3 Lymphocytes # (Auto) 0.8 TH/MM3 1.1 TH/MM3 1.4 TH/MM3 Monocytes # (Auto) 1.3 TH/MM3 1.0 TH/MM3 1.0 TH/MM3 Eosinophils # (Auto) 0.3 TH/MM3 0.5 TH/MM3 0.5 TH/MM3 Basophils # (Auto) 0.0 TH/MM3 0.0 TH/MM3 0.0 TH/MM3 CBC Comment AUTO DIFF AUTO DIFF DIFF FINAL Differential Comment AUTO DIFF FINAL DIFF CONFIRMED MANUAL Platelet Estimate HIGH HIGH Platelet Morphology Comment NORMAL CLUMPED Differential Total Cells 100 Counted Neutrophils % (Manual) 75 % Band Neutrophils % 8 % Lymphocytes % 6 % Monocytes % 6 % Eosinophils % 3 % Neutrophils # (Manual) 9.5 TH/MM3 Myelocytes 2 % Ovalocytes 1+ Laboratory Tests Test 01/06/17 01/07/17 05:34 05:28 Sodium Level 137 MEQ/L 140 MEQ/L Potassium Level 3.4 MEQ/L 3.7 MEQ/L Chloride Level 102 MEQ/L 105 MEQ/L Carbon Dioxide Level 28.4 MEQ/L 26.7 MEQ/L Anion Gap 7 MEQ/L 8 MEQ/L Blood Urea Nitrogen 8 MG/DL 6 MG/DL Creatinine 0.56 MG/DL 0.52 MG/DL Estimat Glomerular Filtration 151 ML/MIN 165 ML/MIN Rate Random Glucose 101 MG/DL 87 MG/DL Calcium Level 9.0 MG/DL 9.2 MG/DL Total Bilirubin 0.4 MG/DL 0.4 MG/DL Aspartate Amino Transf 27 U/L 41 U/L (AST/SGOT) Alanine Aminotransferase 52 U/L 60 U/L (ALT/SGPT) Alkaline Phosphatase 157 U/L 179 U/L Total Protein 6.9 GM/DL 6.7 GM/DL Albumin 2.7 GM/DL 2.5 GM/DL Microbiology Date/Time Procedure Status Source Growth 01/05/17 13:29 Aerobic Blood Culture - Preliminary Resulted Blood Peripheral NO GROWTH IN 1 DAY 01/05/17 13:29 Anaerobic Blood Culture - Preliminary Resulted Blood Peripheral NO GROWTH IN 1 DAY 01/05/17 13:35 Aerobic Blood Culture - Preliminary Resulted Blood Peripheral NO GROWTH IN 1 DAY 01/05/17 13:35 Anaerobic Blood Culture - Preliminary Resulted Blood Peripheral NO GROWTH IN 1 DAY Imaging Last Impressions Chest X-Ray 01/06/17 0600 Signed Impressions: Service Date/Time: December 06:05 - CONCLUSION: Stable left lower lobe consolidation. No pneumothorax seen. Gautam Mary MD Chest CT 01/05/17 0000 Signed Impressions: Service Date/Time: Thursday, January 05, 2017 12:41 - CONCLUSION: Left base chest tube with some residual consolidative change, dependent fluid and loculated fluid. Minimal changes in the right lung. Giovanni Talbot MD Abdomen/Pelvis CT 01/05/17 0000 Signed Impressions: Service Date/Time: Thursday, January 05, 2017 12:44 - CONCLUSION: No acute CT findings in the abdomen or pelvis. Giovanni Talbot MD Consultation 12/24/16 0000 Signed Impressions: Service Date/Time: Saturday, December 24, 2016 00:00 - CONCLUSION: I have discussed the case with doctor Dr Aroldo Vera MD FACR Head CT 12/22/16 0000 Signed Impressions: Service Date/Time: Thursday, December 22, 2016 12:51 - CONCLUSION: 1. No acute intracranial abnormality. Derick eVra MD Pelvis X-Ray 12/19/16 1518 Signed Impressions: Service Date/Time: Monday, December 19, 2016 15:21 - CONCLUSION: Intact pelvis. Giovanni Pradhan MD Cervical Spine CT 12/19/16 1518 Signed Impressions: Service Date/Time: Monday, December 19, 2016 16:42 - CONCLUSION: No fracture or subluxation of the cervical spine. Degenerative changes at C5/C6 and C6/C7 as above. Giovanni Pradhan MD Physical Exam GENERAL: Awake and alert, not in respiratory distress. SKIN: Warm and dry. No generalized rash, no ecchymoses and no evidence of embolic lesions. IV sites look ok with no evidence of infection HEAD: Atraumatic. Normocephalic. No temporal wasting, or tenderness. EYES: [place] conjunctiva. No petechia or hemorrhage. Pupils equal, round and reactive to light. Extraocular movements full and intact. No scleral icterus. No injection or drainage. EARS, NOSE AND THROAT: Nose without bleeding or purulent nasal discharge. No sinus tenderness. Mucous membranes pink and moist. No oral lesions noted. No exudate. No oral thrush. NECK: Trachea midline. Supple and not tender, no meningeal signs CARDIOVASCULAR: Regular rate and rhythm. No murmurs, rubs or gallops heard RESPIRATORY: Clear to auscultation on R, decreased BS on L. CT on L side, has bloody output, not a lot Tender on rib cage on left ABDOMEN: Globular, distended, with mild diffuse tenderness. No guarding or rebound. Bowel sounds present and normoactive. No organomegaly. EXTREMITIES: No clubbing, cyanosis, or edema. No joint effusion, has good ROM. No calf tenderness. Well perfused and warm. NEUROLOGICAL: Non-focal. PSYCHIATRIC: Normal affect, calm and cooperative. LINE: No evidence of infection Assessment & Plan Remarks IMPRESSION New fever with leukocytosis, source? - his CT is showing improvement in L side, with decreased effusion and residual consolidation - he is not having any PNA complaints - no central line - no complaints and no foster, UA not done yet - no diarrhea, no N/V LUQ pain, ?due to his rib fractures S/P fall with multiple rib fx L, and pulmonary contusion and hemothorax DM Known Bipolar disorder, anxiety RECOMMENDATION Change Abx to Clinda and Levaquin - to cover his L base consolidation - give 7 days Patient on laxatives and will help with his abdominal distension Pain control I will sign off Patient stable from ID standpoint Please reconsult if with new ID issue or question Abbey Ayala MD Jan 07, 2017 11:09 Abbey Ayala MD Jan 07, 2017 11:09
--- NOTE | 2017-01-07 11:16 | HHI.PR ---
Subjective Subjective Notes Feeling better today Minimal chest tube output overnight Requesting food Objective Vitals/I&O Vital Signs Date Time Temp Pulse Resp B/P Pulse Ox O2 Delivery O2 Flow Rate FiO2 01/07/17 08:00 97.5 88 18 139/67 93 01/06/17 20:12 4.00 01/06/17 20:00 Nasal Cannula Labs Laboratory Tests Test 01/07/17 01/07/17 05:28 09:30 White Blood Count 9.0 Red Blood Count 3.26 Hemoglobin 8.5 Hematocrit 26.1 Mean Corpuscular Volume 80.0 Mean Corpuscular Hemoglobin 26.1 Mean Corpuscular Hemoglobin 32.6 Concent Red Cell Distribution Width 15.1 Platelet Count 652 Mean Platelet Volume 6.3 Neutrophils (%) (Auto) 67.3 Lymphocytes (%) (Auto) 16.0 Monocytes (%) (Auto) 11.2 Eosinophils (%) (Auto) 5.1 Basophils (%) (Auto) 0.4 Neutrophils # (Auto) 6.0 Lymphocytes # (Auto) 1.4 Monocytes # (Auto) 1.0 Eosinophils # (Auto) 0.5 Basophils # (Auto) 0.0 CBC Comment DIFF FINAL Differential Comment Sodium Level 140 Potassium Level 3.7 Chloride Level 105 Carbon Dioxide Level 26.7 Anion Gap 8 Blood Urea Nitrogen 6 Creatinine 0.52 Estimat Glomerular Filtration 165 Rate Random Glucose 87 Calcium Level 9.2 Total Bilirubin 0.4 Aspartate Amino Transf 41 (AST/SGOT) Alanine Aminotransferase 60 (ALT/SGPT) Alkaline Phosphatase 179 Total Protein 6.7 Albumin 2.5 Vancomycin Level Trough 2.1 Date/Time Procedure Status Source Growth 01/05/17 13:35 Aerobic Blood Culture - Preliminary Resulted Blood Peripheral NO GROWTH IN 2 DAYS 01/05/17 13:35 Anaerobic Blood Culture - Preliminary Resulted Blood Peripheral NO GROWTH IN 2 DAYS Radiology Last Impressions Chest X-Ray 01/04/17 0600 Signed Impressions: Service Date/Time: Wednesday, January 04, 2017 05:21 - CONCLUSION: Persistent consolidation left lower lobe. No pneumothorax. Small right pleural effusion. Gautam Mary MD Consultation 12/24/16 0000 Signed Impressions: Service Date/Time: Saturday, December 24, 2016 00:00 - CONCLUSION: I have discussed the case with doctor Dr Aroldo Vera MD FACR Chest CT 12/24/16 0000 Signed Impressions: Service Date/Time: Saturday, December 24, 2016 11:19 - CONCLUSION: Increasing large left pleural effusion. Significant consolidative changes are evident as well. Aroldo Vera MD FACR Head CT 12/22/16 0000 Signed Impressions: Service Date/Time: Thursday, December 22, 2016 12:51 - CONCLUSION: 1. No acute intracranial abnormality. Derick Vera MD Pelvis X-Ray 12/19/161517 Signed Impressions: Service Date/Time: Monday, December 19, 2016 15:21 - CONCLUSION: Intact pelvis. Giovanni Pradhan MD Cervical Spine CT 12/19/16 151 Signed Impressions: Service Date/Time: Monday, December 19, 2016 16:42 - CONCLUSION: No fracture or subluxation of the cervical spine. Degenerative changes at C5/C6 and C6/C7 as above. Giovanni Pradhan MD Abdomen/Pelvis CT 12/19/16 1518 Signed Impressions: Service Date/Time: Monday, December 19, 2016 16:51 - CONCLUSION: No evidence of acute trauma of the abdomen or pelvis. Enlarged and mild fatty infiltrated liver. Giovanni Pradhan MD Narrative Exam GENERAL: 56-year-old obese male lying in bed. SKIN: Warm and dry. Patient appears pale. HEAD: Normocephalic. NECK: Trachea midline. No JVD. CARDIOVASCULAR: Regular rate and rhythm. RESPIRATORY: No accessory muscle use. Lungs clear and diminished to auscultation. Left lateral chest tube in place secured to water seal with sanguinous drainage noted. No air leak. GASTROINTESTINAL: Abdomen soft, distended, nontender. + BS MUSCULOSKELETAL: Extremities without cyanosis, or edema. NEUROLOGICAL: Awake and alert. Normal speech. A/P Problem List: (1) Fall from ladder (2) Pulmonary contusion (3) Multiple rib fractures Assessment and Plan INJURIES LEFT rib fx (5-9) LEFT lung contusion 12/24: LEFT CT placed for hemothorax Diet: Advance to 1999 ADA Pulmonary: IS. EZpap. nebs. Pain: Percocet. Dilaudid PO. Robaxin. Lidoderm patch. Activity: OOB. PT evaluating. No home needs. GI: Protonix PO Bowel: Colace. MOM. Lactulose. LBM 01/04. Enema 1 today, mag citrate 1. DVT: SCD's. Lovenox 30 BID, ASA Left rib fractures, Left lung contusion Pulmonary toileting Pain control Supportive care 12/24: LEFT CT placed for hemothorax Plan to remove chest tube today 01/05: CT chest yesterday shows a small loculated area and LLL atelectasis. No surgical intervention warranted 01/05: CT abdomen shows narcotic related ileus. OOB- PT Leukocytosis ID consulted, appreciate recommendations- Cleared for DC Blood cxs negative UA negative DC IVF IV ABX changed to PO Clinda and Levaquin x 7 days Afebrile Plan of care discussed with patient and RN at bedside. Case management consulted to assist discharge planning. Plan to DC home with his sister in 1-2 days. Problem Qualifiers (1) Fall from ladder: Qualified Code: W11.XXXA - Fall from ladder, initial encounter (2) Pulmonary contusion: Qualified Code: S27.321A - Contusion of left lung, initial encounter (3) Multiple rib fractures: Qualified Code: S22.42XA - Closed fracture of multiple ribs of left side, initial encounter Pelon Boyer Jan 07, 2017 11:16
[2017-01-07] MEDS: CLINDAMYCIN 150 MG CAP PO SCH ×2 (15:08→20:12)
[2017-01-07] MEDS: LEVOFLOXACIN 750 MG TAB PO SCH (15:08)
[2017-01-07] MEDS ORDERED: MINERAL OIL ENEMA 118 ML BTL RECTAL ONE (18:15)
[2017-01-07] MEDS ORDERED: LEVA750T9 PO (18:21)
[2017-01-07] MEDS ORDERED: CLIN150 PO (18:21)
[2017-01-07] MEDS: FAMOTIDINE 20 MG TAB PO SCH (20:09)
[2017-01-07] MEDS: MAGNESIUM HYDROXIDE SUSP 30 ML CUP PO SCH (20:15)
[2017-01-07] MEDS: BACITRACIN TOP OINT 15 GM TUBE TOP SCH (20:15)
[2017-01-08] VITALS: BP 119/70; PULSE 96; RESP 18; TEMP 97; O2SAT 93
[2017-01-08] MEDS: CLINDAMYCIN 150 MG CAP PO SCH ×4 (00:10→16:28)
[2017-01-08] MEDS: ENOXAPARIN SODIUM 30 MG/0.3 ML SYRINGE SQ SCH ×2 (00:10→12:38)
[2017-01-08 04:00] VITALS: BP 129/73; PULSE 93; RESP 18; TEMP 97.6; O2SAT 94
[2017-01-08] MEDS: METHOCARBAMOL 500 MG TAB PO SCH ×2 (05:18→12:39)
[2017-01-08] MEDS: LORazepam 1 MG TAB PO PRN ×2 (05:20→12:51)
[2017-01-08] MEDS: INSULIN NovoLIN REGULAR SUPPLEMENTAL SCALE SQ SCH ×3 (05:47→15:58)
--- NOTE | 2017-01-08 06:03 | RADRPT ---
EXAM DATE/TIME: 01/08/2017 04:32 [facility] COMPARISON: CHEST SINGLE AP, January 06, 2017, 6:05. INDICATIONS : Evaluate for pnuemothorax post CT removal. MEDICAL HISTORY : Cardiovascular disease. SURGICAL HISTORY : Cholecystectomy. ENCOUNTER: Subsequent ACUITY: 3 weeks PAIN SCORE: 7/10 LOCATION: Bilateral chest FINDINGS: A single view of the chest demonstrates the interval removal of a left chest tube. The numerous left- sided rib fractures are stable. Small left pleural effusion. No visible pneumothorax. Opacity overlyi ng the heart margin could be in part left lower lobe collapse. The cardiomediastinal contours are un remarkable. Osseous structures are intact. CONCLUSION: Chest tube has been removed on the left side. I do not see any evidence of a residual pneumothorax. Multiple rib fractures, left pleural effusion and a questionable collapse left lower lobe unchanged. Ric Butterfield MD on January 08, 2017 at 6:00 Board Certified Radiologist. This report was verified electronically.
[2017-01-08 06:50] LABS: ANION GAP 9 MEQ/L (5-15); AST (GOT) 49 U/L (15-37); BICARBONATE 25.5 MEQ/L (21.0-32.0); BLOOD UREA NITROGEN 7 MG/DL (7-18); CHLORIDE 104 MEQ/L (98-107); GLOMERULAR FILTRATION RATE 279 ML/MIN (>89); POTASSIUM 3.4 MEQ/L (3.5-5.1); SODIUM (NA) 138 MEQ/L (136-145)
[2017-01-08 06:52] LABS: ALT (GPT) 64 U/L (12-78)
[2017-01-08 06:54] LABS: ALKALINE PHOSPHATASE 222 U/L (45-117); TOTAL BILIRUBIN ADULT 0.4 MG/DL (0.2-1.0)
[2017-01-08 07:47] VITALS: O2SAT 82
[2017-01-08] MEDS: BACITRACIN TOP OINT 15 GM TUBE TOP SCH (08:20)
[2017-01-08] MEDS: LACTULOSE SYRUP 20 GM/30 ML CUP PO SCH (09:00)
[2017-01-08] MEDS: LIDOCAINE HCL 5% PATCH T-DERMAL SCH (09:00)
[2017-01-08] MEDS: DOCUSATE SODIUM 100 MG CAP PO SCH (09:00)
[2017-01-08] MEDS: metFORMIN HCL 500 MG TAB PO SCH ×2 (09:19→16:28)
[2017-01-08] MEDS: lamoTRIgine 100 MG TAB PO SCH (09:19)
[2017-01-08] MEDS: ASPIRIN 325 MG TAB PO SCH (09:19)
[2017-01-08] MEDS: GABAPENTIN 300 MG CAP PO SCH (09:19)
[2017-01-08] MEDS: FLUoxetine HCL 20 MG CAP PO SCH (09:20)
[2017-01-08] MEDS: QUEtiapine FUMARATE 200 MG TAB PO SCH (09:20)
[2017-01-08] MEDS: FENOFIBRATE 48 MG TAB PO SCH (09:25)
[2017-01-08] MEDS: FLUTICASONE PROPIONATE 50 MCG/ACT 16 GM NASAL SPRAY NASAL SCH (09:27)
[2017-01-08] MEDS: HYDROmorphone HCL 2 MG TAB PO PRN ×2 (09:47→16:31)
[2017-01-08] MEDS ORDERED: FENT50T T-DERMAL (10:30)
[2017-01-08] MEDS ORDERED: PERC5TAB12 PO (10:31)
[2017-01-08] MEDS ORDERED: LIDO5DIS5 T-DERMAL (10:40)
--- NOTE | 2017-01-08 10:46 | HHI.DS ---
Discharge Summary Admission Date Dec 22, 2016 at 14:22 Discharge Date: Jan 08, 2017 Admitting Diagnosis fall from over 10 feet/multiple rib fractures/pulmonary contusion (1) Fall from ladder (2) Pulmonary contusion (3) Multiple rib fractures Brief History S/P Trauma: Fall CBC/BMP: 01/07/17 0528 01/08/17 0515 Significant Findings Laboratory Tests Test 01/05/17 01/05/17 01/06/17 01/07/17 18:00 20:45 05:34 05:28 Urine Specific [place] 1.037 (1.002-1.035) Urine Protein 30 mg/dL (NEG-TRACE) White Blood Count 15.7 TH/MM3 11.2 TH/MM3 (4.0-11.0) (4.0-11.0) Red Blood Count 3.59 MIL/MM3 3.29 MIL/MM3 3.26 MIL/MM3 (4.50-5.90) (4.50-5.90) (4.50-5.90) Hemoglobin 9.3 GM/DL 8.5 GM/DL 8.5 GM/DL (13.0-17.0) (13.0-17.0) (13.0-17.0) Hematocrit 29.0 % 26.3 % 26.1 % (39.0-51.0) (39.0-51.0) (39.0-51.0) Mean Corpuscular Hemoglobin 25.9 PG 25.9 PG 26.1 PG (27.0-34.0) (27.0-34.0) (27.0-34.0) Platelet Count 713 TH/MM3 688 TH/MM3 652 TH/MM3 (150-450) (150-450) (150-450) Mean Platelet Volume 6.2 FL 6.2 FL 6.3 FL (7.0-11.0) (7.0-11.0) (7.0-11.0) Neutrophils (%) (Auto) 85.3 % 75.9 % (16.0-70.0) (16.0-70.0) Lymphocytes (%) (Auto) 4.8 % (9.0-44.0) Monocytes (%) (Auto) 8.1 % (0.0-8.0) 9.1 % (0.0-8.0) 11.2 % (0.0-8.0) Neutrophils # (Auto) 13.4 TH/MM3 8.5 TH/MM3 (1.8-7.7) (1.8-7.7) Lymphocytes # (Auto) 0.8 TH/MM3 (1.0-4.8) Monocytes # (Auto) 1.3 TH/MM3 1.0 TH/MM3 1.0 TH/MM3 (0-0.9) (0-0.9) (0-0.9) Platelet Estimate HIGH (NORMAL) HIGH (NORMAL) Eosinophils (%) (Auto) 4.6 % (0.0-4.0) 5.1 % (0.0-4.0) Eosinophils # (Auto) 0.5 TH/MM3 0.5 TH/MM3 (0-0.4) (0-0.4) Neutrophils % (Manual) 75 % (16-70) Band Neutrophils % 8 % (0-6) Lymphocytes % 6 % (9-44) Neutrophils # (Manual) 9.5 TH/MM3 (1.8-7.7) Myelocytes 2 % (0-0) Platelet Morphology Comment CLUMPED (NORMAL) Ovalocytes 1+ (NORMAL) Potassium Level 3.4 MEQ/L (3.5-5.1) Creatinine 0.56 MG/DL 0.52 MG/DL (0.60-1.30) (0.60-1.30) Alkaline Phosphatase 157 U/L 179 U/L (45-117) (45-117) Albumin 2.7 GM/DL 2.5 GM/DL (3.4-5.0) (3.4-5.0) Blood Urea Nitrogen 6 MG/DL (7-18) Aspartate Amino Transf 41 U/L (15-37) (AST/SGOT) Test 01/07/17 01/08/17 09:30 05:15 Vancomycin Level Trough 2.1 MCG/ML (5.0-10.0) Potassium Level 3.4 MEQ/L (3.5-5.1) Creatinine 0.33 MG/DL (0.60-1.30) Aspartate Amino Transf 49 U/L (15-37) (AST/SGOT) Alkaline Phosphatase 222 U/L (45-117) Albumin 2.4 GM/DL (3.4-5.0) Imaging Last Impressions Chest X-Ray 01/08/17 0600 Signed Impressions: Service Date/Time: Sunday, January 08, 2017 04:32 - CONCLUSION: Chest tube has been removed on the left side. I do not see any evidence of a residual pneumothorax. Multiple rib fractures, left pleural effusion and a questionable collapse left lower lobe unchanged. Ric Butterfield MD Chest CT 01/05/17 0000 Signed Impressions: Service Date/Time: Thursday, January 05, 2017 12:41 - CONCLUSION: Left base chest tube with some residual consolidative change, dependent fluid and loculated fluid. Minimal changes in the right lung. Giovanni Talbot MD Abdomen/Pelvis CT 01/05/17 0000 Signed Impressions: Service Date/Time: Thursday, January 05, 2017 12:44 - CONCLUSION: No acute CT findings in the abdomen or pelvis. Giovanni Talbot MD Consultation 12/24/16 0000 Signed Impressions: Service Date/Time: Saturday, December 24, 2016 00:00 - CONCLUSION: I have discussed the case with doctor Dr Aroldo Vera MD FACR Head CT 12/22/16 0000 Signed Impressions: Service Date/Time: Thursday, December 22, 2016 12:51 - CONCLUSION: 1. No acute intracranial abnormality. Derick Vera MD Pelvis X-Ray 12/19/16 1518 Signed Impressions: Service Date/Time: Monday, December 19, 2016 15:21 - CONCLUSION: Intact pelvis. Giovanni Pradhan MD Cervical Spine CT 12/19/16 1518 Signed Impressions: Service Date/Time: Monday, December 19, 2016 16:42 - CONCLUSION: No fracture or subluxation of the cervical spine. Degenerative changes at C5/C6 and C6/C7 as above. Giovanni Pradhan MD PE at Discharge GENERAL: 56-year-old obese male sitting OOB in chair. SKIN: Warm and dry. Patient appears pale. HEAD: Normocephalic. NECK: Trachea midline. No JVD. CARDIOVASCULAR: Regular rate and rhythm. RESPIRATORY: No accessory muscle use. Lungs diminished to auscultation in all hughes. Left lateral chest tube in place secured to water seal with sanguinous drainage noted. No air leak. GASTROINTESTINAL: Abdomen soft, distended, nontender. + BS MUSCULOSKELETAL: Extremities without cyanosis, or edema. NEUROLOGICAL: Awake and alert. Normal speech. Hospital Course [place]: Fall from a 13 foot ladder. He was cutting branched and a branch fell and knocked the ladder out from underneath him. Landed on his chest - on a stump. He was ambulatory at the scene. No LOC. INJURIES LEFT rib fx (5-9) LEFT lung contusion 12/24: LEFT CT placed for hemothorax 01/07: CT removed Diet: 2000 ADA, tolerating Pulmonary: IS. EZ-pap. nebs. Pain: Percocet. Dilaudid PO. Robaxin. Lidoderm patch. Activity: OOB. PT evaluating. No home needs. GI: Protonix PO Bowel: Colace. MOM. Lactulose. LBM 01/08 DVT: SCD's. Lovenox 30 BID, ASA Left rib fractures, Left lung contusion Pulmonary toileting Pain control Supportive care 12/24: LEFT CT placed for hemothorax S/P CT removal yesterday- tolerated well CXR today shows no PTX 01/05: CT chest yesterday shows a small loculated area and LLL atelectasis. No surgical intervention warranted 01/05: CT abdomen shows narcotic related ileus. + BM OOB- PT Leukocytosis ID consulted, appreciate recommendations- Cleared for DC Blood cxs negative UA negative PO Clinda and Levaquin x 7 days for PNA Afebrile Plan of care discussed with patient and RN at bedside. F/U with PCP in 1 week. Case management consulted to assist with discharge planning, arranging for home O2 delivery. Patient is clear from trauma surgery standpoint to safely discharge home. Pt Condition on Discharge: Stable Discharge Disposition: Discharge Home Discharge Instructions DIET: Follow Instructions for: Diabetic Diet Activities you can perform: Regular-No Restrictions Pelon Boyer Jan 08, 2017 10:46
[2017-01-08] MEDS: REMOVE OLD DURAGESIC (FENTANYL) PATCH T-DERMAL SCH (11:00)
[2017-01-08 12:00] VITALS: BP 121/75; PULSE 101; RESP 17; TEMP 98; O2SAT 95
--- NOTE | 2017-01-08 12:05 | HHI.FF ---
Face to Face Verification Diagnosis: (1) Hypoxia (2) Pulmonary contusion (3) Multiple rib fractures Home Health Nursing Order: Medical education Signs/symptoms of disease process Oxygen administration education Nursing assessment with vital signs I have seen patient Derick Rao on 01/08/17. My clinical findings support the need for the requested home health care services because: Ltd mobility - disease progression Patient has SOB Limited ability to care for self I certify that my clinical findings support that this patient is homebound because: Impaired cognitive ability/safety Pelon Boyer Jan 08, 2017 12:05
[2017-01-08] MEDS: fentaNYL 50 MCG/HR PATCH T-DERMAL SCH (12:38)
[2017-01-08] MEDS: LEVOFLOXACIN 750 MG TAB PO SCH (12:39)
[2017-01-08 16:00] VITALS: BP 123/78; PULSE 89; RESP 17; TEMP 97.8; O2SAT 94
[2017-01-08] MEDS ORDERED: LAMO150 PO (18:09)
== END 2017-01-08 18:30 | disposition home or self-care (01) | DRG 199 ==
LOC: NEPC 15:16 → NEDA 17:33 → UNDOADMOB 17:34 → NEDA 17:34 → N06B 18:35 → NEDA 18:35 → OBSVTOIN 18:50 → INTOOBSV 18:50 → N03A 12-22 13:21 → N06B 12-22 13:21 → OBSVTOIN 12-22 14:22 → N07B 12-25 16:48
PROVIDERS: ADMIT Surgery; ATTEND Surgery
PROC: 0W9B00Z Drainage of Left Pleural Cavity with Drainage Device, Open Approach (ICD-10-PCS; principal; 2016-12-24)
DX: S27.1XXA Traumatic hemothorax, initial encounter (principal); J96.01 Acute respiratory failure with hypoxia; S22.42XA Multiple fractures of ribs, left side, initial encounter for closed fracture; J90 Pleural effusion, not elsewhere classified; E11.9 Type 2 diabetes mellitus without complications; D72.829 Elevated white blood cell count, unspecified; S27.321A Contusion of lung, unilateral, initial encounter; J98.11 Atelectasis; R44.3 Hallucinations, unspecified; F31.9 Bipolar disorder, unspecified; F41.8 Other specified anxiety disorders; K76.0 Fatty (change of) liver, not elsewhere classified; F11.10 Opioid abuse, uncomplicated; W11.XXXA Fall on and from ladder, initial encounter; W18.2XXA Fall in (into) shower or empty bathtub, initial encounter; Y92.231 Patient bathroom in hospital as the place of occurrence of the external cause; Z79.4 Long term (current) use of insulin; Z79.84 Long term (current) use of oral hypoglycemic drugs; Z88.5 Allergy status to narcotic agent; Z91.19 Patient's noncompliance with other medical treatment and regimen
CPT/HCPCS: 36600; 70450; 71010; 71250; 71260; 72125; 72170; 74177; 80048; 80053; 80202; 81001; 82805; 82948; 83735; 85007; 85014; 85018; 85025; 85027; 85610; 85730; 86850; 86900; 86901; 87040; 93005; 94150; 94620; 94640; 94664; 94667; 94668; C9113; J0131; J1170; J1650; J1885; J2060; J2250; J2270; J2405; J2543; J3370; J7030; J7040; J7050; Q9967